=== PATIENT | male | born 1960 | race Caucasian/White ===

== ENCOUNTER 2018-08-07 09:30 | Day surgery (SDC) | payer MEDICARE ==
[2018-08-06 14:37] VITALS: BMI 38.9
[2018-08-07] MEDS ORDERED: Bupivacaine HCl 0.5%/Epinephrine 1:200,000/PF 30 ml Vial ONE (11:41)
[2018-08-07] MEDS ORDERED: Lidocaine 2% PF 5 ML VIAL ONE (11:41)
[2018-08-07] MEDS ORDERED: Fentanyl 100 MCG/2 ML VIAL ONE ×2 (11:51→13:11)
[2018-08-07] MEDS ORDERED: Albuterol Sulfate HFA (OR ONLY) ONE (12:19)
[2018-08-07] MEDS ORDERED: Non-Formulary Medication 1 EACH PO PRN (13:24)
[2018-08-07] MEDS ORDERED: Ondansetron HCl/PF 4 MG/2 ML Vial IVP PRN (13:24)
[2018-08-07] MEDS ORDERED: Ondansetron PF 4 MG/2 ML Vial IVP PRN (13:26)
[2018-08-07] MEDS ORDERED: Promethazine HCl 25 MG/ML VIAL SLOW IVP PRN (13:26)
[2018-08-07] MEDS ORDERED: HYDROcodone/Acetaminophen 5/325 mg Tablet PO PRN ×2 (13:26)
[2018-08-07] MEDS ORDERED: Fentanyl 100 MCG/2 ML VIAL SLOW IVP PRN (13:26)
[2018-08-07] MEDS ORDERED: HYDROcodone/Acetaminophen 5/325 mg Tablet ONE (14:30)
--- NOTE | 2018-08-07 15:54 | OP ---
DATE OF PROCEDURE: 08/07/2018 PREOPERATIVE DIAGNOSIS: Infected hidradenitis, scrotum, and right groin. POSTOPERATIVE DIAGNOSIS: Infected hidradenitis, scrotum, and right groin. PROCEDURE PERFORMED: Incision and drainage infected hidradenitis, right groin 2 incisions, right scrotum 2 incisions, right groin 1 incision. ANESTHESIA: General. ESTIMATED BLOOD LOSS: Minimal. COMPLICATIONS: None. FINDINGS: Cultures taken for anaerobes and aerobes. DESCRIPTION OF PROCEDURE: The patient was taken to the operating room and laid supine on the operating room table. After general anesthetic was obtained, he was placed in lithotomy position. His perineum and right groin were all shaved, prepped, and draped in a sterile fashion over the fluctuant parts of the lower perineum and right groin incisions were made into small pockets that were full of pus. The wounds were all irrigated out and packed with 0.5 inch iodoform gauze. Sterile dressings were placed. The patient sent to Recovery in stable condition. All needle counts and lap counts were correct. Job ID: [id number]
== END 2018-08-07 14:55 | disposition home or self-care (01) ==
LOC: SDC 09:30
PROVIDERS: ATTEND Surgery
PROC: 0J9C0ZZ Drainage of Pelvic Region Subcutaneous Tissue and Fascia, Open Approach (ICD-10-PCS; principal; 2018-08-07)
DX: L73.2 Hidradenitis suppurativa (principal); I10 Essential (primary) hypertension; E11.9 Type 2 diabetes mellitus without complications; E03.9 Hypothyroidism, unspecified; E78.5 Hyperlipidemia, unspecified; F17.210 Nicotine dependence, cigarettes, uncomplicated; G47.33 Obstructive sleep apnea (adult) (pediatric); J44.9 Chronic obstructive pulmonary disease, unspecified; E66.01 Morbid (severe) obesity due to excess calories; Z68.38 Body mass index [BMI] 38.0-38.9, adult; Z79.84 Long term (current) use of oral hypoglycemic drugs; Z79.899 Other long term (current) drug therapy; Z99.89 Dependence on other enabling machines and devices
CPT/HCPCS: 36416; 87070; 87077; 87205; 93005; 93010; J0670; J0690; J2001; J3010

== ENCOUNTER 2019-03-29 12:01 | Outpatient (CLI) | payer MEDICARE ==
[2019-03-29 14:47] LABS: Anion Gap 13 mmol/L (10-20); BUN (Urea Nitrogen) 19 mg/dL (8.4-25.7); Calc. Creatinine Clearance 0 mL/min (70-130); Calcium 8.8 mg/dL (7.8-10.44); Carbon Dioxide 28 mmol/L (22-29); Chloride 104 mmol/L (98-107); Estimated GFR-MDRD 77; Glucose 195 mg/dL (70-105); Sodium 140 mmol/L (136-145)
--- NOTE | 2019-04-01 00:19 | EKG ---
Test Reason : Blood Pressure : / mmHG Vent. Rate : 077 BPM Atrial Rate : 077 BPM P-R Int : 166 ms QRS Dur : 112 ms QT Int : 386 ms P-R-T Axes : 037 110 024 degrees QTc Int : 436 ms Normal sinus rhythm Left posterior fascicular block Abnormal ECG When compared with ECG of 07-AUG-2018 10:44, No significant change was found Confirmed by Phillip WOODS ([id number]) on 04/01/2019 12:18:57 AM Referred By: ERICA Confirmed By:Phillip WOODS
== END 2019-03-29 12:02 | disposition home or self-care (01) ==
LOC: LABBT 12:01
PROVIDERS: ATTEND Surgery
DX: Z01.818 Encounter for other preprocedural examination (principal); L73.2 Hidradenitis suppurativa
CPT/HCPCS: 80048; 93005; 93010

== ENCOUNTER 2019-04-01 11:49 | Day surgery (SDC) | payer MEDICARE ==
[2019-03-29 13:26] VITALS: BMI 36.6
[~2019-04-01 11:49] MED LIST: Dexamethasone 20 MG/5 ML VIAL ONE; Glycopyrrolate 0.2 MG/ML 5 ML SYRINGE ONE; Lidocaine 1% PF 5 ML VIAL ONE; Ondansetron PF 4 MG/2 ML Vial ONE; PHENYLEPHRINE-NS 100 MCG/ML 10 ML SYRINGE ONE; PROPOFOL 200 MG/20 ML VIAL ONE; Rocuronium Bromide 10 MG/ML (10ML VIAL) ONE
[2019-04-01] MEDS ORDERED: Bupivacaine 0.25% HCL 30 ML VIAL ONE (13:06)
[2019-04-01] MEDS ORDERED: Lidocaine 2% Jelly 5 ML TUBE ONE (13:07)
[2019-04-01] MEDS ORDERED: HYDROmorphone 0.5 MG/0.5 ML SYRINGE ONE (13:07)
[2019-04-01] MEDS ORDERED: Midazolam HCl 2 mg/2 ml Vial ONE (13:07)
[2019-04-01] MEDS ORDERED: Fentanyl 100 MCG/2 ML VIAL ONE ×2 (13:07→14:46)
[2019-04-01] MEDS ORDERED: Albuterol Sulfate HFA (OR ONLY) ONE (13:36)
[2019-04-01] MEDS ORDERED: Morphine 4 MG/ML VIAL ONE (14:58)
--- NOTE | 2019-04-02 10:32 | OP ---
DATE OF PROCEDURE: 04/01/2019 PREOPERATIVE DIAGNOSIS: Infected hidradenitis. POSTOPERATIVE DIAGNOSIS: Infected hidradenitis. PROCEDURE PERFORMED: Incision and drainage of infected hidradenitis, posterior scrotum and sacral area. ANESTHESIA: General. ESTIMATED BLOOD LOSS: Minimal. COMPLICATIONS: None. SPECIMEN: None. DESCRIPTION OF PROCEDURE: The patient was taken to the operating room and laid supine on the operating room table. After general anesthetic was obtained, the patient was placed in prone position. His perineum and posterior scrotum were prepped and draped in a sterile fashion. There were two more fluctuant areas. In these areas, the skin was opened to reveal purulence. Cultures were obtained. The wounds were irrigated and packed using wet-to-dry gauze. The patient was sent to Recovery in stable condition. All instrument counts, needle counts, and lap counts were correct. Job ID: [id number]
== END 2019-04-01 16:00 | disposition home or self-care (01) ==
LOC: SDC 11:49
PROVIDERS: ATTEND Surgery
PROC: 0H99XZZ Drainage of Perineum Skin, External Approach (ICD-10-PCS; principal; 2019-04-01)
DX: L73.2 Hidradenitis suppurativa (principal); L02.215 Cutaneous abscess of perineum; I10 Essential (primary) hypertension; E11.9 Type 2 diabetes mellitus without complications; I48.91 Unspecified atrial fibrillation; J44.9 Chronic obstructive pulmonary disease, unspecified; E78.5 Hyperlipidemia, unspecified; E03.9 Hypothyroidism, unspecified; G47.33 Obstructive sleep apnea (adult) (pediatric); G89.29 Other chronic pain; M54.9 Dorsalgia, unspecified; F17.200 Nicotine dependence, unspecified, uncomplicated; E66.01 Morbid (severe) obesity due to excess calories; Z68.36 Body mass index [BMI] 36.0-36.9, adult; Z79.2 Long term (current) use of antibiotics; Z79.4 Long term (current) use of insulin; Z79.82 Long term (current) use of aspirin; Z79.899 Other long term (current) drug therapy
CPT/HCPCS: 36416; 87070; 87205; J0690; J1100; J1170; J2001; J2250; J2270; J2405; J2704; J3010; S0020

== ENCOUNTER 2019-08-29 16:35 | Emergency (ER) | payer MEDICARE ==
[~2019-08-29 16:35] MED LIST changes: -Dexamethasone 20 MG/5 ML VIAL ONE; -Glycopyrrolate 0.2 MG/ML 5 ML SYRINGE ONE; +Iopamidol-370 76% 500 ML 1 ML ONE; -Lidocaine 1% PF 5 ML VIAL ONE; -Ondansetron PF 4 MG/2 ML Vial ONE; -PHENYLEPHRINE-NS 100 MCG/ML 10 ML SYRINGE ONE; -PROPOFOL 200 MG/20 ML VIAL ONE; -Rocuronium Bromide 10 MG/ML (10ML VIAL) ONE
[2019-08-29] MEDS ORDERED: HYDROcodone/Acetaminophen 10/325 mg Tablet ONE (18:28)
[2019-08-29] MEDS ORDERED: Lidocaine 1% PF 5 ML VIAL ONE (18:28)
[2019-08-29 19:35] LABS: #Basophils 0.1 thou/uL (0.0-0.2); #Eosinphils 0.3 thou/uL (0.0-0.7); #Neutrophils 9.7 thou/uL (1.40-6.50); %Basophils 0.5 % (0.0-1.0); %Eosinophils 1.9 % (0.0-10.0); %Lymphocytes 26.5 % (21.0-51.0); %Monocytes 6.9 % (0.0-10.0); %Neutrophils 64.3 % (42.0-75.0); Hemoglobin 12.3 g/dL (14.0-18.0); Mean Corpuscular HGB CONC 33.7 g/dL (32.0-36.0); Mean Corpuscular Hemoglobin 29.5 pg (27.0-31.0); Mean Corpuscular Volume 87.6 fL (78.0-98.0); Mean Platelet Volume 7.2 fL (7.4-10.4); Platelet Count 286 thou/uL (130-400); RBC Distribution Width 13.1 % (11.5-14.5); Red Blood Cell (RBC) Count 4.18 mill/uL (4.70-6.10)
[2019-08-29 19:56] LABS: ALT (SGPT) 11 U/L (8-55); AST (SGOT) 9 U/L (5-34); Albumin 3.4 g/dL (3.5-5.0); Alkaline Phosphatase 95 U/L (40-110); Anion Gap 14 mmol/L (10-20); BUN (Urea Nitrogen) 26 mg/dL (8.4-25.7); Bilirubin, Total 0.3 mg/dL (0.2-1.2); Calc. Creatinine Clearance 0 mL/min (70-130); Calcium 9.1 mg/dL (7.8-10.44); Carbon Dioxide 24 mmol/L (22-29); Chloride 100 mmol/L (98-107); Estimated GFR-MDRD 48; Globulin 4.9 g/dL (2.4-3.5); Glucose 211 mg/dL (70-105); Potassium 4.5 mmol/L (3.5-5.1); Protein, Total 8.3 g/dL (6.0-8.3); Sodium 133 mmol/L (136-145)
--- NOTE | 2019-08-29 20:11 | CT ---
EXAM: PELVIC CT WITH CONTRAST: 08/29/19 HISTORY: Large left buttock abscess x2 weeks. FINDINGS: Visualized solid organs do not demonstrate any acute abnormality. There is a small amount of nonspeci fic fluid tracking along the left pericolic gutter. Incompletely evaluated hypodensity adjacent to th e lower pole of the right kidney. Visualized alimentary canal has a normal appearance. Presacral fat is preserved. The visualized osseous structures appear to be intact. There are no erosi ve or destructive changes. No periosteal reaction. There is induration of the medial left gluteal subcutaneous fat extending down to the level of the pe rineum. There is a well circumscribed hypodense focus with incomplete peripheral enhancement measurin g 4.8 x 3.8 cm compatible with a subcutaneous/soft tissue abscess. Induration of the adjacent soft ti ssues is noted. As stated above, the adjacent distal sacrum and coccyx do not appear to have any eros yoni or destructive changes. Note, the posterior osseous margins of the coccyx do not appear to be present and may represent a con genital variant. If there is concern for extension into the central spinal canal at the level of cocc yx, MRI can be performed. Visualized left and right lower extremity musculature does not demonstrate any obvious intramuscular abscess. Mild edematous change involving the left gluteal muscles is noted. There is induration of the fat along the right inguinal region, requiring clinical correlation. IMPRESSION: 1. Soft tissue abscess involving the left gluteal subcutaneous fat as described above. There is associated induration and phlegmon involving the subcutaneous fat extending down to the level of everton neum. There is also abnormal phlegmon extending along the posterior aspect of the coccyx to the level of the expected central canal at the level of the coccyx. MRI of the pelvis maybe beneficial. 2. Induration of the fat along the right inguinal region. Correlate clinically. POS: PPP
[2019-08-29] MEDS ORDERED: Lidocaine 1% w/Epinephrine 1:100K 20 ML VIAL ONE (20:29)
[2019-08-29] MEDS ORDERED: Morphine 4 MG/ML VIAL ONE (20:43)
== END 2019-08-29 21:29 | disposition home or self-care (01) ==
LOC: ERS 16:35
DX: L02.31 Cutaneous abscess of buttock (principal); I49.9 Cardiac arrhythmia, unspecified; I48.91 Unspecified atrial fibrillation; E11.9 Type 2 diabetes mellitus without complications; E03.9 Hypothyroidism, unspecified; E78.5 Hyperlipidemia, unspecified; I10 Essential (primary) hypertension; J44.9 Chronic obstructive pulmonary disease, unspecified; F17.210 Nicotine dependence, cigarettes, uncomplicated; Z79.4 Long term (current) use of insulin; Z79.899 Other long term (current) drug therapy
CPT/HCPCS: 10061; 36415; 72193; 80053; 83605; 85025; 87070; 87205; 96374; J2001; J2270; Q9967

== ENCOUNTER 2020-06-17 11:55 | Emergency (ER) | payer MEDICARE ==
[2020-06-17] MEDS ORDERED: Iopamidol-370 76% 500 ML 1 ML ONE (12:27)
[2020-06-17 13:43] LABS: #Eosinphils 0.1 thou/uL (0.0-0.7); #Lymphocytes 2.9 thou/uL (1.20-3.40); #Monocytes 0.8 thou/uL (0.11-0.59); #Neutrophils 10.6 thou/uL (1.40-6.50); %Basophils 0.3 % (0.0-1.0); %Eosinophils 0.8 % (0.0-10.0); %Monocytes 5.7 % (0.0-10.0); %Neutrophils 73.2 % (42.0-75.0); Hemoglobin 12.6 g/dL (14.0-18.0); Mean Corpuscular Hemoglobin 28.3 pg (27.0-31.0); Mean Corpuscular Volume 85.7 fL (78.0-98.0); Mean Platelet Volume 6.9 fL (7.4-10.4); Platelet Count 315 thou/uL (130-400); Red Blood Cell (RBC) Count 4.47 mill/uL (4.70-6.10); White Blood Cell (WBC) Count 14.4 thou/uL (4.8-10.8)
[2020-06-17 14:03] LABS: ALT (SGPT) 10 U/L (8-55); AST (SGOT) 15 U/L (5-34); Albumin 3.1 g/dL (3.5-5.0); Alkaline Phosphatase 127 U/L (40-110); Anion Gap 13 mmol/L (10-20); BUN (Urea Nitrogen) 16 mg/dL (8.4-25.7); Bilirubin, Total 0.3 mg/dL (0.2-1.2); Calc. Creatinine Clearance 0 mL/min (70-130); Carbon Dioxide 30 mmol/L (22-29); Chloride 96 mmol/L (98-107); Globulin 5.3 g/dL (2.4-3.5); Glucose 335 mg/dL (70-105); Potassium 4.5 mmol/L (3.5-5.1); Protein, Total 8.4 g/dL (6.0-8.3); Sodium 134 mmol/L (136-145)
== END 2020-06-17 17:13 | disposition home or self-care (01) ==
LOC: ERS 11:55
DX: L73.2 Hidradenitis suppurativa (principal); E11.9 Type 2 diabetes mellitus without complications; I48.91 Unspecified atrial fibrillation; E03.9 Hypothyroidism, unspecified; I10 Essential (primary) hypertension; E78.5 Hyperlipidemia, unspecified; J44.9 Chronic obstructive pulmonary disease, unspecified; G47.30 Sleep apnea, unspecified; F17.210 Nicotine dependence, cigarettes, uncomplicated; Z79.84 Long term (current) use of oral hypoglycemic drugs; Z79.899 Other long term (current) drug therapy
CPT/HCPCS: 36415; 72193; 80053; 83605; 85025; 87040; Q9967

== ENCOUNTER 2020-06-22 11:11 | Day surgery (SDC) | payer MEDICARE ==
[2020-06-19 12:59] VITALS: BMI 35.9
[2020-06-22] MEDS ORDERED: Bupivacaine 0.25% HCL 30 ML VIAL ONE (13:28)
[2020-06-22] MEDS ORDERED: Lidocaine 1% w/Epinephrine 1:100K 20 ML VIAL ONE (13:28)
[2020-06-22] MEDS ORDERED: Fentanyl 100 MCG/2 ML VIAL ONE ×2 (13:37→14:51)
[2020-06-22] MEDS ORDERED: Ondansetron PF 4 MG/2 ML Vial ONE (13:53)
[2020-06-22] MEDS ORDERED: Lidocaine 1% PF 5 ML VIAL ONE (13:53)
[2020-06-22] MEDS ORDERED: PROPOFOL 200 MG/20 ML VIAL ONE (13:53)
[2020-06-22] MEDS ORDERED: PHENYLEPHRINE-NS 100 MCG/ML 10 ML SYRINGE ONE (13:53)
[2020-06-22] MEDS ORDERED: Rocuronium Bromide 10 MG/ML (10ML VIAL) ONE (13:53)
[2020-06-22] MEDS ORDERED: Dexamethasone 20 MG/5 ML VIAL ONE (13:53)
[2020-06-22] MEDS ORDERED: SUGAMMADEX SODIUM 500 MG/5 ML VIAL ONE (14:29)
== END 2020-06-22 16:30 | disposition home or self-care (01) ==
LOC: SDC 11:11
PROVIDERS: ATTEND Surgery
PROC: 0H9AXZZ Drainage of Inguinal Skin, External Approach (ICD-10-PCS; principal; 2020-06-22)
DX: L73.2 Hidradenitis suppurativa (principal); L02.215 Cutaneous abscess of perineum; G47.33 Obstructive sleep apnea (adult) (pediatric); I48.91 Unspecified atrial fibrillation; J44.9 Chronic obstructive pulmonary disease, unspecified; E11.9 Type 2 diabetes mellitus without complications; E66.01 Morbid (severe) obesity due to excess calories; I10 Essential (primary) hypertension; E78.5 Hyperlipidemia, unspecified; E03.9 Hypothyroidism, unspecified; F17.200 Nicotine dependence, unspecified, uncomplicated; Z79.899 Other long term (current) drug therapy
CPT/HCPCS: 36416; 87070; 87205; 93005; 93010; J0690; J1100; J2405; J2704; J3010; S0020

== ENCOUNTER 2020-07-15 15:52 | Inpatient (IN) | payer MEDICARE ==
[2020-07-15] MEDS ORDERED: Vancomycin 1 GM/200 ML BAG ONE (17:08)
[2020-07-15] MEDS ORDERED: Cefepime 2 GM VIAL ONE (17:08)
[2020-07-15 17:14] LABS: Hemoglobin 12.2 g/dL (14.0-18.0); Mean Corpuscular HGB CONC 32.2 g/dL (32.0-36.0); Mean Corpuscular Hemoglobin 27.8 pg (27.0-31.0); Mean Corpuscular Volume 86.4 fL (78.0-98.0); Mean Platelet Volume 6.9 fL (7.4-10.4); Platelet Count 323 thou/uL (130-400); Red Blood Cell (RBC) Count 4.37 mill/uL (4.70-6.10); White Blood Cell (WBC) Count 20.2 thou/uL (4.8-10.8)
[2020-07-15 17:29] LABS: Band 2 % (5-11); Lymphocytes 9 % (21-51); MDiff Complete? YES; Monocytes 8 % (0-10); Neutrophil 81 % (42-75); Platelet Morphology Comment Appears Adequate; Polychromasia SLIGHT = 2-3 cells (100X) (0-2/hpf)
[2020-07-15 17:41] LABS: ALT (SGPT) 14 U/L (8-55); AST (SGOT) 14 U/L (5-34); Albumin 3.1 g/dL (3.5-5.0); Alkaline Phosphatase 167 U/L (40-110); Anion Gap 12 mmol/L (10-20); BUN (Urea Nitrogen) 33 mg/dL (8.4-25.7); Bilirubin, Total 0.6 mg/dL (0.2-1.2); Calc. Creatinine Clearance 0 mL/min (70-130); Carbon Dioxide 28 mmol/L (22-29); Chloride 99 mmol/L (98-107); Globulin 5.6 g/dL (2.4-3.5); Glucose 231 mg/dL (70-105); Potassium 3.9 mmol/L (3.5-5.1); Protein, Total 8.7 g/dL (6.0-8.3); Sodium 135 mmol/L (136-145)
[2020-07-15] MEDS ORDERED: Dextrose 50% Abboject 50 ML SYRINGE SLOW IVP PRN (19:35)
[2020-07-15] MEDS ORDERED: HumaLOG 300 UNITS/3 ML VIAL SC PRN (19:35)
[2020-07-15] MEDS ORDERED: Dextrose 5% in Water 1,000 ML IV PRN (19:35)
[2020-07-15] MEDS ORDERED: Acetaminophen 325 MG TAB PO PRN (19:41)
[2020-07-15] MEDS ORDERED: Ondansetron PF 4 MG/2 ML Vial IVP PRN (19:41)
[2020-07-15] MEDS: Gabapentin 300 MG CAP PO SCH (21:33)
[2020-07-15] MEDS: Nicotine 21 MG PATCH TD SCH (21:34)
[2020-07-15] MEDS: HYDROcodone/Acetaminophen 7.5/325 mg Tablet PO PRN (21:34)
[2020-07-15] MEDS: Sodium Chloride 0.9% 1,000 ML IV SCH (21:35)
[2020-07-15 23:50] VITALS: BMI 34.0
[2020-07-16 01:02] LABS: SARS-CoV-2 NAA Rapid Test Not Detected (NotDetected)
[2020-07-16] MEDS: Vancomycin HCl 1.75 GM in Sodium Chloride 0.9% 500 ML IVPB SCH ×2 (02:35→16:09)
[2020-07-16] MEDS ORDERED: Cefepime 2 GM in Sodium Chloride 0.9% 100 ML IVPB SCH (05:00)
[2020-07-16] MEDS: HumaLOG 300 UNITS/3 ML VIAL SC PRN ×2 (05:09→16:53)
[2020-07-16 07:57] LABS: Hemoglobin A1c 10.3 % (4.0-6.0)
[2020-07-16 08:10] LABS: #Eosinphils 0.2 thou/uL (0.0-0.7); #Lymphocytes 2.2 thou/uL (1.20-3.40); #Neutrophils 14.2 thou/uL (1.40-6.50); %Basophils 0.2 % (0.0-1.0); %Eosinophils 1.2 % (0.0-10.0); %Lymphocytes 12.6 % (21.0-51.0); %Monocytes 5.6 % (0.0-10.0); %Neutrophils 80.5 % (42.0-75.0); Hemoglobin 10.6 g/dL (14.0-18.0); Mean Corpuscular HGB CONC 30.6 g/dL (32.0-36.0); Mean Corpuscular Hemoglobin 26.7 pg (27.0-31.0); Mean Corpuscular Volume 87.1 fL (78.0-98.0); Mean Platelet Volume 6.8 fL (7.4-10.4); Platelet Count 325 thou/uL (130-400); RBC Distribution Width 13.7 % (11.5-14.5); Red Blood Cell (RBC) Count 3.96 mill/uL (4.70-6.10); White Blood Cell (WBC) Count 17.7 thou/uL (4.8-10.8)
[2020-07-16] MEDS: Gabapentin 300 MG CAP PO SCH ×2 (08:15→20:22)
[2020-07-16 08:21] LABS: Anion Gap 10 mmol/L (10-20); BUN (Urea Nitrogen) 19 mg/dL (8.4-25.7); Calc. Creatinine Clearance 156 mL/min (70-130); Calcium 8.7 mg/dL (7.8-10.44); Carbon Dioxide 29 mmol/L (22-29); Cardiac Risk 3.9 (Less than 4.5); Chloride 97 mmol/L (98-107); Cholesterol 106 mg/dl (< 200 Desired); Glucose 231 mg/dL (70-105); HDL Cholesterol 27 mg/dL (>60 Neg Risk); LDL Cholesterol, Calculated 64 mg/dL; Potassium 3.9 mmol/L (3.5-5.1); Sodium 132 mmol/L (136-145); Triglycerides 76 mg/dL (Less than 150)
[2020-07-16] MEDS: Piperacillin/Tazobactam 4.5 GM in Sodium Chloride 0.9% 100 ML IVPB SCH ×3 (10:40→21:41)
[2020-07-16] MEDS: HYDROcodone/Acetaminophen 7.5/325 mg Tablet PO PRN (14:48)
[2020-07-16] MEDS: Sodium Chloride 0.9% 1,000 ML IV SCH (16:56)
[2020-07-16] MEDS: Enoxaparin Sodium 40 MG/0.4 ML SYRINGE SC SCH (20:22)
[2020-07-16] MEDS: Simvastatin 10 MG TAB PO SCH (20:24)
[2020-07-16] MEDS: Nicotine 21 MG PATCH TD SCH (21:42)
[2020-07-16] MEDS: HumuLIN 70/30 (300 UNITS/3 ML VIAL) SC SCH (21:42)
[2020-07-17] MEDS: Sodium Chloride 0.9% 1,000 ML IV SCH ×2 (00:10→12:38)
[2020-07-17] MEDS: VANCOMYCIN 1.75 GM/350 ML BAG 1.75 GM in Premix Bag 1 BAG IVPB SCH ×2 (02:13→13:40)
[2020-07-17] MEDS: Piperacillin/Tazobactam 4.5 GM in Sodium Chloride 0.9% 100 ML IVPB SCH ×4 (04:43→22:01)
[2020-07-17] MEDS: Levothyroxine Sodium 112 MCG TAB PO SCH (04:44)
[2020-07-17] MEDS: Gabapentin 300 MG CAP PO SCH ×2 (08:07→19:53)
[2020-07-17] MEDS: HumuLIN 70/30 (300 UNITS/3 ML VIAL) SC SCH ×2 (08:07→20:23)
[2020-07-17] MEDS: Metoprolol Tartrate 50 MG TAB PO SCH (08:07)
[2020-07-17 08:32] LABS: #Eosinphils 0.2 thou/uL (0.0-0.7); #Lymphocytes 2.4 thou/uL (1.20-3.40); #Neutrophils 13.3 thou/uL (1.40-6.50); %Basophils 0.3 % (0.0-1.0); %Eosinophils 1.2 % (0.0-10.0); %Lymphocytes 13.9 % (21.0-51.0); %Monocytes 5.9 % (0.0-10.0); %Neutrophils 78.8 % (42.0-75.0); Hemoglobin 9.6 g/dL (14.0-18.0); Mean Corpuscular HGB CONC 30.7 g/dL (32.0-36.0); Mean Corpuscular Volume 87.8 fL (78.0-98.0); Mean Platelet Volume 6.7 fL (7.4-10.4); Platelet Count 300 thou/uL (130-400); RBC Distribution Width 13.4 % (11.5-14.5); Red Blood Cell (RBC) Count 3.56 mill/uL (4.70-6.10); White Blood Cell (WBC) Count 16.9 thou/uL (4.8-10.8)
[2020-07-17 08:48] LABS: Anion Gap 13 mmol/L (10-20); BUN (Urea Nitrogen) 14 mg/dL (8.4-25.7); Calc. Creatinine Clearance 180 mL/min (70-130); Calcium 8.5 mg/dL (7.8-10.44); Carbon Dioxide 28 mmol/L (22-29); Chloride 98 mmol/L (98-107); Glucose 76 mg/dL (70-105); Potassium 3.7 mmol/L (3.5-5.1); Sodium 135 mmol/L (136-145)
[2020-07-17] MEDS: HYDROcodone/Acetaminophen 7.5/325 mg Tablet PO PRN ×2 (11:44→16:48)
[2020-07-17 14:04] LABS: Vancomycin, Trough 10.8 ug/mL
[2020-07-17] MEDS: Senokot S 8.6-50 MG TAB PO SCH (19:53)
[2020-07-17] MEDS: Simvastatin 10 MG TAB PO SCH (19:53)
[2020-07-17] MEDS: Enoxaparin Sodium 40 MG/0.4 ML SYRINGE SC SCH (19:54)
[2020-07-17] MEDS: Nicotine 21 MG PATCH TD SCH (22:02)
[2020-07-17] MEDS: VANCOMYCIN 1.25 GM/250 ML BAG 1.25 GM in Premix Bag 1 BAG IVPB SCH (23:13)
[2020-07-18] MEDS: Sodium Chloride 0.9% 1,000 ML IV SCH ×2 (02:55→05:51)
[2020-07-18] MEDS: Piperacillin/Tazobactam 4.5 GM in Sodium Chloride 0.9% 100 ML IVPB SCH ×3 (04:10→16:32)
[2020-07-18] MEDS: Levothyroxine Sodium 112 MCG TAB PO SCH (05:50)
[2020-07-18] MEDS: VANCOMYCIN 1.25 GM/250 ML BAG 1.25 GM in Premix Bag 1 BAG IVPB SCH ×3 (05:51→22:17)
[2020-07-18 06:45] LABS: #Eosinphils 0.3 thou/uL (0.0-0.7); #Neutrophils 11.8 thou/uL (1.40-6.50); %Basophils 0.3 % (0.0-1.0); %Eosinophils 1.8 % (0.0-10.0); %Lymphocytes 13.2 % (21.0-51.0); %Monocytes 6.6 % (0.0-10.0); %Neutrophils 78.2 % (42.0-75.0); Hemoglobin 9.1 g/dL (14.0-18.0); Mean Corpuscular HGB CONC 31.6 g/dL (32.0-36.0); Mean Corpuscular Hemoglobin 27.3 pg (27.0-31.0); Mean Corpuscular Volume 86.3 fL (78.0-98.0); Mean Platelet Volume 6.7 fL (7.4-10.4); Platelet Count 282 thou/uL (130-400); RBC Distribution Width 13.4 % (11.5-14.5); Red Blood Cell (RBC) Count 3.34 mill/uL (4.70-6.10); White Blood Cell (WBC) Count 15.1 thou/uL (4.8-10.8)
[2020-07-18 07:02] LABS: Anion Gap 11 mmol/L (10-20); BUN (Urea Nitrogen) 13 mg/dL (8.4-25.7); Calc. Creatinine Clearance 180 mL/min (70-130); Calcium 8.5 mg/dL (7.8-10.44); Carbon Dioxide 29 mmol/L (22-29); Chloride 99 mmol/L (98-107); Glucose 104 mg/dL (70-105); Potassium 3.8 mmol/L (3.5-5.1); Sodium 135 mmol/L (136-145)
[2020-07-18] MEDS: Senokot S 8.6-50 MG TAB PO SCH ×2 (09:00→20:46)
[2020-07-18] MEDS: Metoprolol Tartrate 50 MG TAB PO SCH (09:01)
[2020-07-18] MEDS: Gabapentin 300 MG CAP PO SCH ×2 (09:01→20:46)
[2020-07-18] MEDS: HumuLIN 70/30 (300 UNITS/3 ML VIAL) SC SCH ×2 (09:03→20:48)
[2020-07-18] MEDS ORDERED: Furosemide 20 MG/2 ML VIAL SLOW IVP SCH (16:45)
[2020-07-18] MEDS: HumaLOG 300 UNITS/3 ML VIAL SC PRN (17:47)
[2020-07-18] MEDS: Enoxaparin Sodium 40 MG/0.4 ML SYRINGE SC SCH (20:45)
[2020-07-18] MEDS: Simvastatin 10 MG TAB PO SCH (20:47)
[2020-07-18] MEDS: Nicotine 21 MG PATCH TD SCH (20:48)
[2020-07-18 21:56] LABS: Vancomycin, Trough 14.5 ug/mL
[2020-07-19] MEDS: Piperacillin/Tazobactam 4.5 GM in Sodium Chloride 0.9% 100 ML IVPB SCH ×3 (00:34→12:20)
[2020-07-19] MEDS: Levothyroxine Sodium 112 MCG TAB PO SCH (05:26)
[2020-07-19] MEDS: VANCOMYCIN 1.25 GM/250 ML BAG 1.25 GM in Premix Bag 1 BAG IVPB SCH ×2 (06:27→15:03)
[2020-07-19] MEDS: Senokot S 8.6-50 MG TAB PO SCH ×2 (07:57→20:21)
[2020-07-19 07:58] LABS: #Eosinphils 0.1 thou/uL (0.0-0.7); #Lymphocytes 1.8 thou/uL (1.20-3.40); #Monocytes 0.8 thou/uL (0.11-0.59); #Neutrophils 9.7 thou/uL (1.40-6.50); %Basophils 0.1 % (0.0-1.0); %Eosinophils 0.8 % (0.0-10.0); %Lymphocytes 14.2 % (21.0-51.0); %Monocytes 6.7 % (0.0-10.0); %Neutrophils 78.1 % (42.0-75.0); Hemoglobin 9.6 g/dL (14.0-18.0); Mean Corpuscular HGB CONC 32.8 g/dL (32.0-36.0); Mean Corpuscular Hemoglobin 28.4 pg (27.0-31.0); Mean Corpuscular Volume 86.5 fL (78.0-98.0); Mean Platelet Volume 6.7 fL (7.4-10.4); Platelet Count 279 thou/uL (130-400); RBC Distribution Width 13.4 % (11.5-14.5); Red Blood Cell (RBC) Count 3.37 mill/uL (4.70-6.10); White Blood Cell (WBC) Count 12.3 thou/uL (4.8-10.8)
[2020-07-19] MEDS: Gabapentin 300 MG CAP PO SCH ×2 (07:58→20:19)
[2020-07-19] MEDS: Metoprolol Tartrate 50 MG TAB PO SCH (07:58)
[2020-07-19] MEDS: HumuLIN 70/30 (300 UNITS/3 ML VIAL) SC SCH ×2 (07:59→20:20)
[2020-07-19] MEDS ORDERED: Furosemide 20 MG/2 ML VIAL SLOW IVP SCH (14:45)
[2020-07-19] MEDS ORDERED: Calcium Carbonate 500 MG ChewTAB PO PRN (15:06)
[2020-07-19] MEDS: HYDROcodone/Acetaminophen 7.5/325 mg Tablet PO PRN (16:25)
[2020-07-19] MEDS: HumaLOG 300 UNITS/3 ML VIAL SC PRN (17:33)
[2020-07-19] MEDS: Simvastatin 10 MG TAB PO SCH (20:19)
[2020-07-19] MEDS: Enoxaparin Sodium 40 MG/0.4 ML SYRINGE SC SCH (20:20)
[2020-07-19] MEDS: metroNIDAZOLE 500 MG in Premix Bag 1 BAG IVPB SCH (21:31)
[2020-07-19] MEDS: Nicotine 21 MG PATCH TD SCH (21:31)
[2020-07-19 21:50] LABS: Vancomycin, Trough 9.3 ug/mL
[2020-07-20] MEDS: metroNIDAZOLE 500 MG in Premix Bag 1 BAG IVPB SCH ×3 (05:31→20:59)
[2020-07-20] MEDS: Levothyroxine Sodium 112 MCG TAB PO SCH (05:32)
[2020-07-20 06:19] LABS: #Eosinphils 0.2 thou/uL (0.0-0.7); #Monocytes 0.8 thou/uL (0.11-0.59); #Neutrophils 7.8 thou/uL (1.40-6.50); %Basophils 0.4 % (0.0-1.0); %Lymphocytes 18.3 % (21.0-51.0); %Monocytes 7.4 % (0.0-10.0); %Neutrophils 71.9 % (42.0-75.0); Hemoglobin 9.4 g/dL (14.0-18.0); Mean Corpuscular Hemoglobin 27.4 pg (27.0-31.0); Mean Corpuscular Volume 85.5 fL (78.0-98.0); Mean Platelet Volume 6.8 fL (7.4-10.4); Platelet Count 312 thou/uL (130-400); RBC Distribution Width 13.3 % (11.5-14.5); Red Blood Cell (RBC) Count 3.42 mill/uL (4.70-6.10); White Blood Cell (WBC) Count 10.9 thou/uL (4.8-10.8)
[2020-07-20 06:42] LABS: Anion Gap 11 mmol/L (10-20); BUN (Urea Nitrogen) 7 mg/dL (8.4-25.7); Calc. Creatinine Clearance 207 mL/min (70-130); Calcium 8.7 mg/dL (7.8-10.44); Carbon Dioxide 29 mmol/L (22-29); Chloride 98 mmol/L (98-107); Glucose 160 mg/dL (70-105); Potassium 3.6 mmol/L (3.5-5.1); Sodium 134 mmol/L (136-145)
[2020-07-20] MEDS: Gabapentin 300 MG CAP PO SCH ×2 (08:02→20:54)
[2020-07-20] MEDS: Metoprolol Tartrate 50 MG TAB PO SCH (08:03)
[2020-07-20] MEDS: HumuLIN 70/30 (300 UNITS/3 ML VIAL) SC SCH ×2 (08:04→21:00)
[2020-07-20] MEDS: Senokot S 8.6-50 MG TAB PO SCH ×2 (08:04→20:55)
[2020-07-20] MEDS: HYDROcodone/Acetaminophen 7.5/325 mg Tablet PO PRN ×2 (12:25→20:54)
[2020-07-20] MEDS: HumaLOG 300 UNITS/3 ML VIAL SC PRN ×2 (13:13→18:53)
[2020-07-20] MEDS: Enoxaparin Sodium 40 MG/0.4 ML SYRINGE SC SCH (20:55)
[2020-07-20] MEDS: Simvastatin 10 MG TAB PO SCH (20:56)
[2020-07-20] MEDS: Nicotine 21 MG PATCH TD SCH (20:59)
[2020-07-21] MEDS: Metoprolol Tartrate 50 MG TAB PO SCH (05:51)
[2020-07-21] MEDS: Levothyroxine Sodium 112 MCG TAB PO SCH (05:51)
[2020-07-21] MEDS: metroNIDAZOLE 500 MG in Premix Bag 1 BAG IVPB SCH ×3 (06:00→21:21)
[2020-07-21] MEDS ORDERED: metroNIDAZOLE 500 MG/100 ML BAG ONE (06:18)
[2020-07-21] MEDS ORDERED: Fentanyl 100 MCG/2 ML VIAL ONE (06:34)
[2020-07-21] MEDS ORDERED: Promethazine HCl 25 MG/ML VIAL IM PRN (07:00)
[2020-07-21] MEDS ORDERED: Ondansetron HCl/PF 4 MG/2 ML Vial IVP PRN (07:00)
[2020-07-21] MEDS ORDERED: Promethazine HCl 25 MG/ML VIAL SLOW IVP PRN (07:00)
[2020-07-21] MEDS ORDERED: Bupivacaine 0.25% HCL 30 ML VIAL ONE (07:26)
[2020-07-21] MEDS ORDERED: Lidocaine 1% w/Epinephrine 1:100K 20 ML VIAL ONE (07:26)
[2020-07-21] MEDS ORDERED: Bupivacaine PF 0.5% 30 ML VIAL ONE (07:27)
[2020-07-21] MEDS ORDERED: Ondansetron PF 4 MG/2 ML Vial ONE (07:45)
[2020-07-21] MEDS ORDERED: Lidocaine 1% PF 5 ML VIAL ONE (07:45)
[2020-07-21] MEDS ORDERED: PROPOFOL 200 MG/20 ML VIAL ONE (07:45)
[2020-07-21] MEDS: HumuLIN 70/30 (300 UNITS/3 ML VIAL) SC SCH ×2 (08:59→21:29)
[2020-07-21] MEDS: Senokot S 8.6-50 MG TAB PO SCH ×2 (08:59→21:20)
[2020-07-21] MEDS: Gabapentin 300 MG CAP PO SCH ×2 (09:00→21:20)
[2020-07-21] MEDS: HYDROcodone/Acetaminophen 7.5/325 mg Tablet PO PRN (09:06)
[2020-07-21] MEDS: Enoxaparin Sodium 40 MG/0.4 ML SYRINGE SC SCH (21:20)
[2020-07-21] MEDS: Simvastatin 10 MG TAB PO SCH (21:21)
[2020-07-21] MEDS: Nicotine 21 MG PATCH TD SCH (21:22)
[2020-07-22] MEDS: HumaLOG 300 UNITS/3 ML VIAL SC PRN (04:56)
[2020-07-22] MEDS: metroNIDAZOLE 500 MG in Premix Bag 1 BAG IVPB SCH ×3 (05:10→21:02)
[2020-07-22] MEDS: Levothyroxine Sodium 112 MCG TAB PO SCH (05:10)
[2020-07-22 06:05] LABS: #Basophils 0.1 thou/uL (0.0-0.2); #Eosinphils 0.3 thou/uL (0.0-0.7); #Monocytes 0.8 thou/uL (0.11-0.59); #Neutrophils 8.3 thou/uL (1.40-6.50); %Basophils 0.4 % (0.0-1.0); %Eosinophils 2.6 % (0.0-10.0); %Lymphocytes 23.9 % (21.0-51.0); %Monocytes 6.5 % (0.0-10.0); %Neutrophils 66.6 % (42.0-75.0); Hemoglobin 10.2 g/dL (14.0-18.0); Mean Corpuscular HGB CONC 31.4 g/dL (32.0-36.0); Mean Corpuscular Hemoglobin 27.5 pg (27.0-31.0); Mean Corpuscular Volume 87.5 fL (78.0-98.0); Mean Platelet Volume 6.4 fL (7.4-10.4); Platelet Count 389 thou/uL (130-400); RBC Distribution Width 13.4 % (11.5-14.5); Red Blood Cell (RBC) Count 3.71 mill/uL (4.70-6.10); White Blood Cell (WBC) Count 12.5 thou/uL (4.8-10.8)
[2020-07-22 06:31] LABS: Anion Gap 11 mmol/L (10-20); BUN (Urea Nitrogen) 11 mg/dL (8.4-25.7); Calc. Creatinine Clearance 197 mL/min (70-130); Calcium 8.7 mg/dL (7.8-10.44); Carbon Dioxide 30 mmol/L (22-29); Chloride 99 mmol/L (98-107); Glucose 134 mg/dL (70-105); Potassium 3.6 mmol/L (3.5-5.1); Sodium 136 mmol/L (136-145)
[2020-07-22] MEDS: Senokot S 8.6-50 MG TAB PO SCH ×2 (08:57→20:52)
[2020-07-22] MEDS: Metoprolol Tartrate 50 MG TAB PO SCH (08:57)
[2020-07-22] MEDS: Gabapentin 300 MG CAP PO SCH ×2 (08:57→20:52)
[2020-07-22] MEDS: HumuLIN 70/30 (300 UNITS/3 ML VIAL) SC SCH ×2 (08:57→20:53)
[2020-07-22] MEDS: HYDROcodone/Acetaminophen 7.5/325 mg Tablet PO PRN (11:53)
[2020-07-22] MEDS: Enoxaparin Sodium 40 MG/0.4 ML SYRINGE SC SCH (20:51)
[2020-07-22] MEDS: Simvastatin 10 MG TAB PO SCH (20:52)
[2020-07-22] MEDS: Nicotine 21 MG PATCH TD SCH (21:03)
[2020-07-23] MEDS: Levothyroxine Sodium 112 MCG TAB PO SCH (05:30)
[2020-07-23] MEDS: metroNIDAZOLE 500 MG in Premix Bag 1 BAG IVPB SCH ×2 (05:30→14:44)
[2020-07-23 06:31] LABS: Hemoglobin 10.6 g/dL (14.0-18.0); Mean Corpuscular HGB CONC 31.8 g/dL (32.0-36.0); Mean Corpuscular Hemoglobin 28.1 pg (27.0-31.0); Mean Corpuscular Volume 88.3 fL (78.0-98.0); Mean Platelet Volume 6.4 fL (7.4-10.4); Platelet Count 396 thou/uL (130-400); RBC Distribution Width 13.5 % (11.5-14.5); Red Blood Cell (RBC) Count 3.77 mill/uL (4.70-6.10); White Blood Cell (WBC) Count 11.2 thou/uL (4.8-10.8)
[2020-07-23 07:20] VITALS: TEMP 97.7
[2020-07-23] MEDS: Senokot S 8.6-50 MG TAB PO SCH (08:28)
[2020-07-23] MEDS: Metoprolol Tartrate 50 MG TAB PO SCH (08:28)
[2020-07-23] MEDS: Gabapentin 300 MG CAP PO SCH (08:28)
[2020-07-23] MEDS: HumuLIN 70/30 (300 UNITS/3 ML VIAL) SC SCH (08:31)
[2020-07-23] MEDS: HumaLOG 300 UNITS/3 ML VIAL SC PRN (12:27)
[2020-07-23 17:12] VITALS: BP 160/88
== END 2020-07-23 17:06 | DRG 240 ==
LOC: ERS 15:52 → T4-B 19:00
PROVIDERS: ADMIT Internal Medicine; ATTEND Internal Medicine
PROC: 0JBQ0ZZ Excision of Right Foot Subcutaneous Tissue and Fascia, Open Approach (ICD-10-PCS; 2020-07-17)
PROC: 0Y6M0Z6 Detachment at Right Foot, Complete 3rd Ray, Open Approach (ICD-10-PCS; principal; 2020-07-21)
DX: E11.52 Type 2 diabetes mellitus with diabetic peripheral angiopathy with gangrene (principal); L03.115 Cellulitis of right lower limb; L02.611 Cutaneous abscess of right foot; I48.92 Unspecified atrial flutter; I96 Gangrene, not elsewhere classified; M86.171 Other acute osteomyelitis, right ankle and foot; Z16.29 Resistance to other single specified antibiotic; E11.621 Type 2 diabetes mellitus with foot ulcer; I48.91 Unspecified atrial fibrillation; Z20.822 Contact with and (suspected) exposure to COVID-19; E03.9 Hypothyroidism, unspecified; E78.5 Hyperlipidemia, unspecified; I10 Essential (primary) hypertension; J44.9 Chronic obstructive pulmonary disease, unspecified; G47.33 Obstructive sleep apnea (adult) (pediatric); L40.9 Psoriasis, unspecified; F17.210 Nicotine dependence, cigarettes, uncomplicated; E11.42 Type 2 diabetes mellitus with diabetic polyneuropathy; E11.69 Type 2 diabetes mellitus with other specified complication; L97.519 Non-pressure chronic ulcer of other part of right foot with unspecified severity; L73.2 Hidradenitis suppurativa; Z79.890 Hormone replacement therapy; Z79.4 Long term (current) use of insulin; Z79.899 Other long term (current) drug therapy; Z71.6 Tobacco abuse counseling; B96.89 Other specified bacterial agents as the cause of diseases classified elsewhere
CPT/HCPCS: 36415; 36416; 80048; 80053; 80061; 80202; 83036; 83605; 85025; 85027; 85652; 87040; 87070; 87077; 87186; 87205; 88305; 96365; 96367; J0692; J1650; J1815; J1940; J1956; J2405; J2543; J2704; J3010; J3370; J3490; J7030; S0020; U0002; U0005

== ENCOUNTER 2020-11-24 14:32 | Inpatient (IN) | payer MEDICARE ==
[2020-11-24 15:24] LABS: #Eosinphils 0.3 thou/uL (0.0-0.7); #Lymphocytes 3.1 thou/uL (1.20-3.40); #Monocytes 1.1 thou/uL (0.11-0.59); #Neutrophils 13.1 thou/uL (1.40-6.50); %Basophils 0.1 % (0.0-1.0); %Eosinophils 1.5 % (0.0-10.0); %Lymphocytes 17.6 % (21.0-51.0); %Monocytes 6.5 % (0.0-10.0); %Neutrophils 74.3 % (42.0-75.0); Hemoglobin 10.4 g/dL (14.0-18.0); Mean Corpuscular HGB CONC 32.4 g/dL (32.0-36.0); Mean Corpuscular Volume 86.5 fL (78.0-98.0); Mean Platelet Volume 6.8 fL (7.4-10.4); Platelet Count 479 thou/uL (130-400); RBC Distribution Width 12.7 % (11.5-14.5); Red Blood Cell (RBC) Count 3.72 mill/uL (4.70-6.10); White Blood Cell (WBC) Count 17.6 thou/uL (4.8-10.8)
[2020-11-24 15:45] LABS: ALT (SGPT) 8 U/L (8-55); AST (SGOT) 9 U/L (5-34); Alkaline Phosphatase 157 U/L (40-110); Anion Gap 15 mmol/L (10-20); BUN (Urea Nitrogen) 30 mg/dL (8.4-25.7); Bilirubin, Total 0.3 mg/dL (0.2-1.2); Calc. Creatinine Clearance 0 mL/min (70-130); Calcium 9.3 mg/dL (7.8-10.44); Carbon Dioxide 27 mmol/L (22-29); Chloride 96 mmol/L (98-107); Globulin 5.6 g/dL (2.4-3.5); Glucose 163 mg/dL (70-105); Potassium 4.7 mmol/L (3.5-5.1); Protein, Total 8.6 g/dL (6.0-8.3); Sodium 133 mmol/L (136-145)
[2020-11-24 19:03] LABS: SARS-CoV-2 NAA Rapid Test Not Detected (NotDetected)
[2020-11-24] MEDS ORDERED: Ondansetron PF 4 MG/2 ML Vial IVP PRN (19:45)
[2020-11-24] MEDS ORDERED: Acetaminophen 325 MG TAB PO PRN (19:45)
[2020-11-24] MEDS ORDERED: Ondansetron ODT 4 MG TAB SL PRN (19:45)
[2020-11-25] MEDS: Sodium Chloride 0.9% 1,000 ML IV SCH ×3 (00:15→21:22)
[2020-11-25] MEDS ORDERED: cefTRIAXone\\ROCEPHIN 1 GM in Sodium Chloride 0.9% 100 ML IVPB SCH (01:00)
[2020-11-25] MEDS ORDERED: Dextrose 5% in Water 1,000 ML IV PRN (01:07)
[2020-11-25 04:05] LABS: Bilirubin Negative (Negative); Blood, Urine Negative (Negative); Clarity Clear (Clear); Glucose, Urine (Dipstick) Normal (Negative); Ketone, Urine Negative (Negative); Leukocyte Negative Leu/uL (Negative); Nitrite Negative (Negative); Protein, Urine (Dipstick) 20 mg/dL (Neg-Trace); RBC/HPF 0-3 HPF (0-3); Specific Gravity, Urine 1.018 (1.002-1.036); Squamous Epithelial 0-3 HPF (0-3); Urobilinogen Normal mg/dL (Less than 2); WBC/HPF 0-3 HPF (0-3); pH, Urine 5.5 (5.0-9.0)
[2020-11-25 04:25] LABS: Bacteria/HPF None Seen HPF (None Seen)
[2020-11-25 07:18] LABS: #Eosinphils 0.2 thou/uL (0.0-0.7); #Lymphocytes 2.3 thou/uL (1.20-3.40); #Monocytes 0.7 thou/uL (0.11-0.59); %Basophils 0.2 % (0.0-1.0); %Eosinophils 1.4 % (0.0-10.0); %Lymphocytes 16.4 % (21.0-51.0); %Monocytes 5.1 % (0.0-10.0); Hemoglobin 9.8 g/dL (14.0-18.0); Mean Corpuscular HGB CONC 32.1 g/dL (32.0-36.0); Mean Corpuscular Volume 87.3 fL (78.0-98.0); Mean Platelet Volume 6.6 fL (7.4-10.4); Platelet Count 416 thou/uL (130-400); RBC Distribution Width 12.7 % (11.5-14.5); White Blood Cell (WBC) Count 14.3 thou/uL (4.8-10.8)
[2020-11-25 07:49] LABS: Anion Gap 16 mmol/L (10-20); BUN (Urea Nitrogen) 27 mg/dL (8.4-25.7); Calc. Creatinine Clearance 128 mL/min (70-130); Calcium 8.7 mg/dL (7.8-10.44); Carbon Dioxide 22 mmol/L (22-29); Chloride 100 mmol/L (98-107); Glucose 143 mg/dL (70-105); Potassium 4.6 mmol/L (3.5-5.1); Sodium 133 mmol/L (136-145)
[2020-11-25] MEDS: Metoprolol Tartrate 50 MG TAB PO SCH (08:14)
[2020-11-25 08:50] LABS: Creatinine, Urine 85.97 mg/dL (63-166)
[2020-11-25] MEDS ORDERED: Enoxaparin Sodium 30 MG/0.3 ML SYRINGE SC SCH (09:00)
[2020-11-25] MEDS: HYDROcodone/Acetaminophen 10/325 mg Tablet PO PRN (16:49)
[2020-11-25] MEDS: HumaLOG 300 UNITS/3 ML VIAL SC PRN (16:53)
[2020-11-25] MEDS: Nicotine 21 MG PATCH TD SCH (21:12)
[2020-11-25] MEDS: Amitriptyline HCl 25 MG TAB PO SCH (21:12)
[2020-11-25] MEDS: Acetaminophen 325 MG TAB PO PRN (21:12)
[2020-11-25] MEDS: Simvastatin 10 MG TAB PO SCH (21:12)
[2020-11-26] MEDS: Sodium Chloride 0.9% 1,000 ML IV SCH (06:02)
[2020-11-26] MEDS: HumaLOG 300 UNITS/3 ML VIAL SC PRN ×2 (06:09→17:35)
[2020-11-26] MEDS: Acetaminophen 325 MG TAB PO PRN ×3 (06:19→20:46)
[2020-11-26 08:02] LABS: Anion Gap 11 mmol/L (10-20); BUN (Urea Nitrogen) 13 mg/dL (8.4-25.7); Calc. Creatinine Clearance 158 mL/min (70-130); Calcium 8.5 mg/dL (7.8-10.44); Carbon Dioxide 28 mmol/L (22-29); Chloride 98 mmol/L (98-107); Glucose 176 mg/dL (70-105); Potassium 3.9 mmol/L (3.5-5.1); Sodium 133 mmol/L (136-145)
[2020-11-26] MEDS: Enoxaparin Sodium 40 MG/0.4 ML SYRINGE SC SCH (09:06)
[2020-11-26] MEDS: Metoprolol Tartrate 50 MG TAB PO SCH (09:06)
[2020-11-26] MEDS ORDERED: HYDROmorphone 0.5 MG/0.5 ML SYRINGE SLOW IVP SCH (10:30)
[2020-11-26 10:39] LABS: #Eosinphils 0.3 thou/uL (0.0-0.7); #Lymphocytes 2.4 thou/uL (1.20-3.40); #Monocytes 0.8 thou/uL (0.11-0.59); #Neutrophils 10.3 thou/uL (1.40-6.50); %Basophils 0.3 % (0.0-1.0); %Eosinophils 1.8 % (0.0-10.0); %Lymphocytes 17.2 % (21.0-51.0); %Monocytes 5.9 % (0.0-10.0); %Neutrophils 74.8 % (42.0-75.0); Hemoglobin 9.4 g/dL (14.0-18.0); Mean Corpuscular HGB CONC 32.9 g/dL (32.0-36.0); Mean Corpuscular Hemoglobin 28.7 pg (27.0-31.0); Mean Corpuscular Volume 87.1 fL (78.0-98.0); Mean Platelet Volume 6.4 fL (7.4-10.4); Platelet Count 388 thou/uL (130-400); RBC Distribution Width 12.5 % (11.5-14.5); Red Blood Cell (RBC) Count 3.27 mill/uL (4.70-6.10); White Blood Cell (WBC) Count 13.8 thou/uL (4.8-10.8)
[2020-11-26] MEDS: Gabapentin 100 MG CAP PO SCH ×2 (14:55→20:46)
[2020-11-26] MEDS: HYDROcodone/Acetaminophen 10/325 mg Tablet PO PRN (16:26)
[2020-11-26] MEDS ORDERED: Albuterol Sulfate 2.5 mg/0.5 ml Neb NEB PRN (17:26)
[2020-11-26 17:33] LABS: Hemoglobin A1c 7.3 % (4.0-6.0)
[2020-11-26] MEDS: Simvastatin 10 MG TAB PO SCH (20:46)
[2020-11-26] MEDS: Amitriptyline HCl 25 MG TAB PO SCH (20:46)
[2020-11-26] MEDS: NPH, Human Insulin Isophane 300 UNIT/3 ML VIAL SC SCH (20:47)
[2020-11-26] MEDS: Nicotine 21 MG PATCH TD SCH (23:06)
[2020-11-27] MEDS: Levothyroxine Sodium 112 MCG TAB PO SCH (05:34)
[2020-11-27] MEDS: Gabapentin 100 MG CAP PO SCH ×3 (08:16→21:00)
[2020-11-27] MEDS: Enoxaparin Sodium 40 MG/0.4 ML SYRINGE SC SCH (08:17)
[2020-11-27] MEDS: NPH, Human Insulin Isophane 300 UNIT/3 ML VIAL SC SCH ×2 (08:17→20:58)
[2020-11-27] MEDS: Metoprolol Tartrate 50 MG TAB PO SCH (08:17)
[2020-11-27 08:25] LABS: Anion Gap 12 mmol/L (10-20); BUN (Urea Nitrogen) 7 mg/dL (8.4-25.7); Calc. Creatinine Clearance 181 mL/min (70-130); Calcium 8.6 mg/dL (7.8-10.44); Carbon Dioxide 29 mmol/L (22-29); Chloride 98 mmol/L (98-107); Glucose 106 mg/dL (70-105); Sodium 135 mmol/L (136-145)
[2020-11-27 10:09] LABS: #Eosinphils 0.3 thou/uL (0.0-0.7); #Lymphocytes 1.9 thou/uL (1.20-3.40); #Monocytes 0.8 thou/uL (0.11-0.59); #Neutrophils 10.8 thou/uL (1.40-6.50); %Basophils 0.3 % (0.0-1.0); %Eosinophils 2.3 % (0.0-10.0); %Lymphocytes 13.4 % (21.0-51.0); Hemoglobin 9.5 g/dL (14.0-18.0); Mean Corpuscular HGB CONC 33.3 g/dL (32.0-36.0); Mean Corpuscular Hemoglobin 29.2 pg (27.0-31.0); Mean Corpuscular Volume 87.6 fL (78.0-98.0); Mean Platelet Volume 6.9 fL (7.4-10.4); Platelet Count 362 thou/uL (130-400); RBC Distribution Width 12.6 % (11.5-14.5); Red Blood Cell (RBC) Count 3.26 mill/uL (4.70-6.10); White Blood Cell (WBC) Count 13.9 thou/uL (4.8-10.8)
[2020-11-27] MEDS: HYDROcodone/Acetaminophen 10/325 mg Tablet PO PRN (13:39)
[2020-11-27] MEDS: Nicotine 21 MG PATCH TD SCH (21:00)
[2020-11-27] MEDS: Amitriptyline HCl 25 MG TAB PO SCH (21:00)
[2020-11-27] MEDS: Simvastatin 10 MG TAB PO SCH (21:26)
[2020-11-28] MEDS: Dextrose 50% Abboject 50 ML SYRINGE SLOW IVP PRN (04:52)
[2020-11-28] MEDS: Levothyroxine Sodium 112 MCG TAB PO SCH (04:55)
[2020-11-28] MEDS: Metoprolol Tartrate 50 MG TAB PO SCH (07:48)
[2020-11-28] MEDS: Gabapentin 100 MG CAP PO SCH ×3 (07:48→20:43)
[2020-11-28] MEDS: Enoxaparin Sodium 40 MG/0.4 ML SYRINGE SC SCH (07:50)
[2020-11-28] MEDS: NPH, Human Insulin Isophane 300 UNIT/3 ML VIAL SC SCH ×2 (07:58→20:41)
[2020-11-28] MEDS: HYDROcodone/Acetaminophen 10/325 mg Tablet PO PRN (08:20)
[2020-11-28 08:59] LABS: #Eosinphils 0.3 thou/uL (0.0-0.7); #Lymphocytes 2.8 thou/uL (1.20-3.40); #Monocytes 0.9 thou/uL (0.11-0.59); #Neutrophils 11.9 thou/uL (1.40-6.50); %Basophils 0.2 % (0.0-1.0); %Lymphocytes 17.5 % (21.0-51.0); %Monocytes 5.7 % (0.0-10.0); %Neutrophils 74.7 % (42.0-75.0); Hemoglobin 9.9 g/dL (14.0-18.0); Mean Corpuscular HGB CONC 31.6 g/dL (32.0-36.0); Mean Corpuscular Hemoglobin 27.5 pg (27.0-31.0); Mean Corpuscular Volume 87.1 fL (78.0-98.0); Mean Platelet Volume 6.6 fL (7.4-10.4); Platelet Count 407 thou/uL (130-400); RBC Distribution Width 12.6 % (11.5-14.5); Red Blood Cell (RBC) Count 3.58 mill/uL (4.70-6.10); White Blood Cell (WBC) Count 15.9 thou/uL (4.8-10.8)
[2020-11-28 09:19] LABS: Anion Gap 13 mmol/L (10-20); BUN (Urea Nitrogen) 15 mg/dL (8.4-25.7); Calc. Creatinine Clearance 162 mL/min (70-130); Carbon Dioxide 28 mmol/L (22-29); Chloride 97 mmol/L (98-107); Glucose 69 mg/dL (70-105); Potassium 3.9 mmol/L (3.5-5.1); Sodium 134 mmol/L (136-145)
[2020-11-28] MEDS: HYDROcodone/Acetaminophen 5/325 mg Tablet PO PRN (12:28)
[2020-11-28] MEDS: Nicotine 21 MG PATCH TD SCH (20:43)
[2020-11-28] MEDS: Amitriptyline HCl 25 MG TAB PO SCH (20:43)
[2020-11-28] MEDS: Simvastatin 10 MG TAB PO SCH (21:25)
[2020-11-29] MEDS: Levothyroxine Sodium 112 MCG TAB PO SCH (06:14)
[2020-11-29 06:45] LABS: #Eosinphils 0.2 thou/uL (0.0-0.7); #Lymphocytes 2.8 thou/uL (1.20-3.40); %Basophils 0.1 % (0.0-1.0); %Eosinophils 1.5 % (0.0-10.0); %Lymphocytes 18.8 % (21.0-51.0); %Monocytes 6.9 % (0.0-10.0); %Neutrophils 72.8 % (42.0-75.0); Hemoglobin 8.6 g/dL (14.0-18.0); Mean Corpuscular HGB CONC 32.4 g/dL (32.0-36.0); Mean Corpuscular Hemoglobin 28.2 pg (27.0-31.0); Mean Platelet Volume 6.2 fL (7.4-10.4); Platelet Count 347 thou/uL (130-400); RBC Distribution Width 12.5 % (11.5-14.5); Red Blood Cell (RBC) Count 3.03 mill/uL (4.70-6.10); White Blood Cell (WBC) Count 15.1 thou/uL (4.8-10.8)
[2020-11-29 07:04] LABS: Anion Gap 11 mmol/L (10-20); BUN (Urea Nitrogen) 26 mg/dL (8.4-25.7); Calc. Creatinine Clearance 149 mL/min (70-130); Calcium 7.9 mg/dL (7.8-10.44); Carbon Dioxide 28 mmol/L (22-29); Chloride 98 mmol/L (98-107); Glucose 129 mg/dL (70-105); Potassium 3.9 mmol/L (3.5-5.1); Sodium 133 mmol/L (136-145)
[2020-11-29] MEDS: Metoprolol Tartrate 50 MG TAB PO SCH (08:27)
[2020-11-29] MEDS: Gabapentin 100 MG CAP PO SCH ×3 (08:27→21:29)
[2020-11-29] MEDS: Enoxaparin Sodium 40 MG/0.4 ML SYRINGE SC SCH (08:29)
[2020-11-29] MEDS: NPH, Human Insulin Isophane 300 UNIT/3 ML VIAL SC SCH ×2 (08:29→21:36)
[2020-11-29] MEDS: HYDROcodone/Acetaminophen 5/325 mg Tablet PO PRN ×2 (12:04→17:46)
[2020-11-29] MEDS ORDERED: Polyethylene Glycol 3350 17 GM Packet PO SCH (14:00)
[2020-11-29] MEDS: Amitriptyline HCl 25 MG TAB PO SCH (21:29)
[2020-11-29] MEDS: methylPREDNISolone Sod Succ 40 MG VIAL IVP SCH (21:29)
[2020-11-29] MEDS: Nicotine 21 MG PATCH TD SCH (21:30)
[2020-11-29] MEDS: Simvastatin 10 MG TAB PO SCH (21:30)
[2020-11-29] MEDS: HumaLOG 300 UNITS/3 ML VIAL SC PRN (21:34)
[2020-11-29 23:07] LABS: HSV 1 - DNA Negative (Negative); HSV 2 - DNA Negative (Negative)
[2020-11-30] MEDS: HumaLOG 300 UNITS/3 ML VIAL SC PRN ×3 (05:05→15:55)
[2020-11-30] MEDS: Levothyroxine Sodium 112 MCG TAB PO SCH (05:05)
[2020-11-30] MEDS: HYDROcodone/Acetaminophen 5/325 mg Tablet PO PRN ×2 (07:15→19:50)
[2020-11-30 07:48] LABS: Anion Gap 13 mmol/L (10-20); BUN (Urea Nitrogen) 39 mg/dL (8.4-25.7); Calc. Creatinine Clearance 128 mL/min (70-130); Calcium 8.6 mg/dL (7.8-10.44); Carbon Dioxide 27 mmol/L (22-29); Chloride 97 mmol/L (98-107); Glucose 247 mg/dL (70-105); Potassium 4.6 mmol/L (3.5-5.1); Sodium 132 mmol/L (136-145)
[2020-11-30] MEDS: methylPREDNISolone Sod Succ 40 MG VIAL IVP SCH ×2 (09:42→20:43)
[2020-11-30] MEDS: Polyethylene Glycol 3350 17 GM Packet PO SCH (09:42)
[2020-11-30] MEDS: Enoxaparin Sodium 40 MG/0.4 ML SYRINGE SC SCH (09:42)
[2020-11-30] MEDS: Metoprolol Tartrate 50 MG TAB PO SCH (09:43)
[2020-11-30] MEDS: Gabapentin 100 MG CAP PO SCH ×3 (09:43→20:43)
[2020-11-30] MEDS: NPH, Human Insulin Isophane 300 UNIT/3 ML VIAL SC SCH ×2 (09:44→20:50)
[2020-11-30] MEDS ORDERED: Nystatin Powder 15 GM BOT TOP PRN (15:41)
[2020-11-30] MEDS: Amitriptyline HCl 25 MG TAB PO SCH (20:43)
[2020-11-30] MEDS: Simvastatin 10 MG TAB PO SCH (20:43)
[2020-11-30] MEDS: metFORMIN 500 MG TAB PO SCH (20:43)
[2020-11-30] MEDS: Nicotine 21 MG PATCH TD SCH (21:19)
[2020-12-01] MEDS: HumaLOG 300 UNITS/3 ML VIAL SC PRN ×5 (00:09→20:36)
[2020-12-01] MEDS: Levothyroxine Sodium 112 MCG TAB PO SCH (05:13)
[2020-12-01 08:31] LABS: #Lymphocytes 1.4 thou/uL (1.20-3.40); #Monocytes 0.7 thou/uL (0.11-0.59); #Neutrophils 12.2 thou/uL (1.40-6.50); %Eosinophils 0.1 % (0.0-10.0); %Lymphocytes 9.9 % (21.0-51.0); %Monocytes 4.8 % (0.0-10.0); %Neutrophils 85.2 % (42.0-75.0); Hemoglobin 9.1 g/dL (14.0-18.0); Mean Corpuscular HGB CONC 33.4 g/dL (32.0-36.0); Mean Corpuscular Hemoglobin 28.6 pg (27.0-31.0); Mean Corpuscular Volume 85.7 fL (78.0-98.0); Mean Platelet Volume 6.5 fL (7.4-10.4); Platelet Count 405 thou/uL (130-400); RBC Distribution Width 12.4 % (11.5-14.5); White Blood Cell (WBC) Count 14.4 thou/uL (4.8-10.8)
[2020-12-01] MEDS: metFORMIN 500 MG TAB PO SCH ×2 (08:52→20:33)
[2020-12-01] MEDS: Metoprolol Tartrate 50 MG TAB PO SCH (08:52)
[2020-12-01] MEDS: Gabapentin 100 MG CAP PO SCH ×3 (08:52→20:31)
[2020-12-01] MEDS: HYDROcodone/Acetaminophen 5/325 mg Tablet PO PRN ×3 (08:53→20:34)
[2020-12-01] MEDS: Enoxaparin Sodium 40 MG/0.4 ML SYRINGE SC SCH (08:54)
[2020-12-01 08:55] LABS: ALT (SGPT) 13 U/L (8-55); AST (SGOT) 10 U/L (5-34); Albumin 2.2 g/dL (3.5-5.0); Alkaline Phosphatase 189 U/L (40-110); Anion Gap 11 mmol/L (10-20); BUN (Urea Nitrogen) 66 mg/dL (8.4-25.7); Bilirubin, Total 0.2 mg/dL (0.2-1.2); Calc. Creatinine Clearance 106 mL/min (70-130); Calcium 8.4 mg/dL (7.8-10.44); Carbon Dioxide 28 mmol/L (22-29); Chloride 96 mmol/L (98-107); Globulin 4.4 g/dL (2.4-3.5); Glucose 217 mg/dL (70-105); Potassium 4.8 mmol/L (3.5-5.1); Protein, Total 6.6 g/dL (6.0-8.3); Sodium 130 mmol/L (136-145)
[2020-12-01] MEDS: NPH, Human Insulin Isophane 300 UNIT/3 ML VIAL SC SCH ×2 (08:55→20:35)
[2020-12-01] MEDS: methylPREDNISolone Sod Succ 40 MG VIAL IVP SCH ×2 (08:56→20:31)
[2020-12-01] MEDS: Polyethylene Glycol 3350 17 GM Packet PO SCH (09:01)
[2020-12-01] MEDS ORDERED: Bisacodyl 10 MG SUPP PR PRN (16:41)
[2020-12-01] MEDS: Sodium Chloride 0.9% 1,000 ML IV SCH (16:58)
[2020-12-01] MEDS: Milk Of Magnesia 30 ML UDCUP PO PRN (16:59)
[2020-12-01] MEDS: Amitriptyline HCl 25 MG TAB PO SCH (20:33)
[2020-12-01] MEDS: Simvastatin 10 MG TAB PO SCH (20:33)
[2020-12-01] MEDS: Senokot S 8.6-50 MG TAB PO SCH (20:36)
[2020-12-01] MEDS: Nicotine 21 MG PATCH TD SCH (22:47)
[2020-12-02] MEDS: HYDROcodone/Acetaminophen 5/325 mg Tablet PO PRN ×4 (02:52→22:01)
[2020-12-02] MEDS: HumaLOG 300 UNITS/3 ML VIAL SC PRN ×3 (05:18→21:49)
[2020-12-02] MEDS: Levothyroxine Sodium 112 MCG TAB PO SCH (05:21)
[2020-12-02] MEDS: Sodium Chloride 0.9% 1,000 ML IV SCH (05:24)
[2020-12-02] MEDS: Senokot S 8.6-50 MG TAB PO SCH ×2 (08:33→21:46)
[2020-12-02] MEDS: Gabapentin 100 MG CAP PO SCH ×3 (08:33→21:44)
[2020-12-02] MEDS: Metoprolol Tartrate 50 MG TAB PO SCH (08:34)
[2020-12-02] MEDS: metFORMIN 500 MG TAB PO SCH ×2 (08:34→21:44)
[2020-12-02] MEDS: methylPREDNISolone Sod Succ 40 MG VIAL IVP SCH ×2 (08:35→21:44)
[2020-12-02] MEDS: Polyethylene Glycol 3350 17 GM Packet PO SCH (08:35)
[2020-12-02] MEDS: Enoxaparin Sodium 40 MG/0.4 ML SYRINGE SC SCH (08:42)
[2020-12-02 10:32] LABS: #Monocytes 0.6 thou/uL (0.11-0.59); #Neutrophils 12.3 thou/uL (1.40-6.50); %Basophils 0.1 % (0.0-1.0); %Eosinophils 0.2 % (0.0-10.0); %Lymphocytes 13.2 % (21.0-51.0); %Monocytes 4.2 % (0.0-10.0); %Neutrophils 82.4 % (42.0-75.0); Hemoglobin 9.2 g/dL (14.0-18.0); Mean Corpuscular HGB CONC 33.8 g/dL (32.0-36.0); Mean Corpuscular Hemoglobin 29.5 pg (27.0-31.0); Mean Corpuscular Volume 87.2 fL (78.0-98.0); Mean Platelet Volume 6.6 fL (7.4-10.4); Platelet Count 380 thou/uL (130-400); RBC Distribution Width 12.5 % (11.5-14.5); White Blood Cell (WBC) Count 14.9 thou/uL (4.8-10.8)
[2020-12-02] MEDS: NPH, Human Insulin Isophane 300 UNIT/3 ML VIAL SC SCH ×2 (10:40→21:50)
[2020-12-02 10:58] LABS: Anion Gap 10 mmol/L (10-20); BUN (Urea Nitrogen) 88 mg/dL (8.4-25.7); Calc. Creatinine Clearance 101 mL/min (70-130); Carbon Dioxide 28 mmol/L (22-29); Chloride 97 mmol/L (98-107); Glucose 196 mg/dL (70-105); Potassium 5.1 mmol/L (3.5-5.1); Sodium 130 mmol/L (136-145)
[2020-12-02 12:12] LABS: SARS-CoV-2 PCR by NAA Not Detected (NotDetected)
[2020-12-02] MEDS ORDERED: Bisacodyl 10 MG SUPP PR SCH (12:49)
[2020-12-02] MEDS: Milk Of Magnesia 30 ML UDCUP PO PRN (19:32)
[2020-12-02] MEDS: Amitriptyline HCl 25 MG TAB PO SCH (21:44)
[2020-12-02] MEDS: Simvastatin 10 MG TAB PO SCH (21:47)
[2020-12-02] MEDS: Nicotine 21 MG PATCH TD SCH (22:19)
[2020-12-03] MEDS: HYDROcodone/Acetaminophen 5/325 mg Tablet PO PRN ×4 (05:34→20:40)
[2020-12-03] MEDS: Levothyroxine Sodium 112 MCG TAB PO SCH (05:42)
[2020-12-03 07:05] LABS: #Basophils 0.1 thou/uL (0.0-0.2); #Lymphocytes 1.5 thou/uL (1.20-3.40); #Monocytes 0.6 thou/uL (0.11-0.59); %Basophils 0.5 % (0.0-1.0); %Eosinophils 0.2 % (0.0-10.0); %Lymphocytes 11.1 % (21.0-51.0); %Monocytes 4.3 % (0.0-10.0); %Neutrophils 83.9 % (42.0-75.0); Hemoglobin 9.6 g/dL (14.0-18.0); Mean Corpuscular HGB CONC 33.5 g/dL (32.0-36.0); Mean Corpuscular Hemoglobin 28.7 pg (27.0-31.0); Mean Corpuscular Volume 85.7 fL (78.0-98.0); Mean Platelet Volume 6.4 fL (7.4-10.4); Platelet Count 402 thou/uL (130-400); RBC Distribution Width 12.4 % (11.5-14.5); Red Blood Cell (RBC) Count 3.33 mill/uL (4.70-6.10); White Blood Cell (WBC) Count 13.1 thou/uL (4.8-10.8)
[2020-12-03 07:26] LABS: Anion Gap 11 mmol/L (10-20); BUN (Urea Nitrogen) 94 mg/dL (8.4-25.7); Calc. Creatinine Clearance 105 mL/min (70-130); Calcium 8.2 mg/dL (7.8-10.44); Carbon Dioxide 29 mmol/L (22-29); Chloride 98 mmol/L (98-107); Glucose 122 mg/dL (70-105); Potassium 5.1 mmol/L (3.5-5.1); Sodium 133 mmol/L (136-145)
[2020-12-03] MEDS: Enoxaparin Sodium 40 MG/0.4 ML SYRINGE SC SCH (08:44)
[2020-12-03] MEDS: metFORMIN 500 MG TAB PO SCH ×2 (08:45→20:39)
[2020-12-03] MEDS: Metoprolol Tartrate 50 MG TAB PO SCH (08:45)
[2020-12-03] MEDS: Gabapentin 100 MG CAP PO SCH ×3 (08:46→20:39)
[2020-12-03] MEDS: Polyethylene Glycol 3350 17 GM Packet PO SCH (08:46)
[2020-12-03] MEDS: Senokot S 8.6-50 MG TAB PO SCH ×2 (08:46→20:39)
[2020-12-03] MEDS: Acetaminophen 325 MG TAB PO PRN (08:48)
[2020-12-03] MEDS: methylPREDNISolone Sod Succ 40 MG VIAL IVP SCH (08:53)
[2020-12-03] MEDS: NPH, Human Insulin Isophane 300 UNIT/3 ML VIAL SC SCH ×2 (08:53→21:32)
[2020-12-03] MEDS ORDERED: GoLYTELY 4,000 ml Bottle PO SCH (14:15)
[2020-12-03] MEDS: Dextrose 5 %-0.45 % NaCl 1,000 ML IV SCH (17:28)
[2020-12-03] MEDS: Amitriptyline HCl 25 MG TAB PO SCH (20:39)
[2020-12-03] MEDS: Simvastatin 10 MG TAB PO SCH (20:44)
[2020-12-03] MEDS: Nicotine 21 MG PATCH TD SCH (23:07)
[2020-12-04] MEDS: HYDROcodone/Acetaminophen 5/325 mg Tablet PO PRN ×4 (01:26→20:27)
[2020-12-04] MEDS: Levothyroxine Sodium 112 MCG TAB PO SCH (05:35)
[2020-12-04] MEDS: Dextrose 5 %-0.45 % NaCl 1,000 ML IV SCH (05:58)
[2020-12-04 06:54] LABS: Anion Gap 12 mmol/L (10-20); BUN (Urea Nitrogen) 99 mg/dL (8.4-25.7); Calc. Creatinine Clearance 85 mL/min (70-130); Calcium 7.9 mg/dL (7.8-10.44); Carbon Dioxide 21 mmol/L (22-29); Chloride 103 mmol/L (98-107); Glucose 77 mg/dL (70-105); Potassium 5.3 mmol/L (3.5-5.1); Sodium 131 mmol/L (136-145)
[2020-12-04 07:26] LABS: Hemoglobin 9.4 g/dL (14.0-18.0); Mean Corpuscular HGB CONC 33.3 g/dL (32.0-36.0); Mean Corpuscular Hemoglobin 28.5 pg (27.0-31.0); Mean Corpuscular Volume 85.6 fL (78.0-98.0); Mean Platelet Volume 6.4 fL (7.4-10.4); Platelet Count 381 thou/uL (130-400); RBC Distribution Width 12.8 % (11.5-14.5); Red Blood Cell (RBC) Count 3.28 mill/uL (4.70-6.10); White Blood Cell (WBC) Count 22.1 thou/uL (4.8-10.8)
[2020-12-04 08:06] LABS: Band 4 % (5-11); Lymphocytes 19 % (21-51); MDiff Complete? YES; Monocytes 2 % (0-10); Myelocyte 1 % (0-0); Neutrophil 73 % (42-75); Platelet Morphology Comment Appears Adequate; Polychromasia SLIGHT = 2-3 cells (100X) (0-2/hpf); Reactive Lymphocytes 1 % (0-10)
[2020-12-04] MEDS: Enoxaparin Sodium 40 MG/0.4 ML SYRINGE SC SCH (08:25)
[2020-12-04] MEDS: Metoprolol Tartrate 50 MG TAB PO SCH (08:26)
[2020-12-04] MEDS: Gabapentin 100 MG CAP PO SCH ×3 (08:27→20:22)
[2020-12-04] MEDS: metFORMIN 500 MG TAB PO SCH (08:27)
[2020-12-04] MEDS: Polyethylene Glycol 3350 17 GM Packet PO SCH (08:28)
[2020-12-04] MEDS: NPH, Human Insulin Isophane 300 UNIT/3 ML VIAL SC SCH ×2 (08:28→21:05)
[2020-12-04] MEDS: Senokot S 8.6-50 MG TAB PO SCH ×2 (08:28→20:22)
[2020-12-04] MEDS: predniSONE 20 MG TAB PO SCH (08:28)
[2020-12-04] MEDS: Sodium Bicarbonate Tab 325 MG TAB PO SCH ×2 (14:45→20:22)
[2020-12-04] MEDS: Albumin 25% 25 GM/100 ML BOT IVPB SCH ×2 (14:46→22:30)
[2020-12-04] MEDS: HumaLOG 300 UNITS/3 ML VIAL SC PRN ×2 (16:08→21:06)
[2020-12-04 19:48] LABS: Bilirubin Negative (Negative); Blood, Urine 2+ (Negative); Clarity Turbid (Clear); Glucose, Urine (Dipstick) 50 mg/dL (Negative); Ketone, Urine Negative (Negative); Leukocyte 25 Leu/uL (Negative); Nitrite Negative (Negative); Protein, Urine (Dipstick) 300 mg/dL (Neg-Trace); RBC/HPF 21-50 HPF (0-3); Specific Gravity, Urine 1.021 (1.002-1.036); Squamous Epithelial 0-3 HPF (0-3); pH, Urine 5.5 (5.0-9.0)
[2020-12-04 19:49] LABS: Bacteria/HPF 1+ HPF (None Seen)
[2020-12-04 20:03] LABS: Creatinine, Urine 103.75 mg/dL (63-166)
[2020-12-04] MEDS: Amitriptyline HCl 25 MG TAB PO SCH (20:22)
[2020-12-04] MEDS: Simvastatin 10 MG TAB PO SCH (20:23)
[2020-12-04] MEDS: Nicotine 21 MG PATCH TD SCH (22:30)
[2020-12-05] MEDS: Levothyroxine Sodium 112 MCG TAB PO SCH (05:39)
[2020-12-05] MEDS: Albumin 25% 25 GM/100 ML BOT IVPB SCH ×2 (06:01→14:35)
[2020-12-05] MEDS: HumaLOG 300 UNITS/3 ML VIAL SC PRN ×4 (06:06→20:07)
[2020-12-05 07:16] LABS: #Basophils 0.2 thou/uL (0.0-0.2); #Eosinphils 0.1 thou/uL (0.0-0.7); #Lymphocytes 1.8 thou/uL (1.20-3.40); #Monocytes 0.6 thou/uL (0.11-0.59); #Neutrophils 15.1 thou/uL (1.40-6.50); %Eosinophils 0.4 % (0.0-10.0); %Lymphocytes 10.3 % (21.0-51.0); %Monocytes 3.5 % (0.0-10.0); %Neutrophils 84.9 % (42.0-75.0); Mean Corpuscular HGB CONC 32.4 g/dL (32.0-36.0); Mean Corpuscular Hemoglobin 28.6 pg (27.0-31.0); Mean Corpuscular Volume 88.3 fL (78.0-98.0); Mean Platelet Volume 6.9 fL (7.4-10.4); Platelet Count 359 thou/uL (130-400); Red Blood Cell (RBC) Count 3.13 mill/uL (4.70-6.10); White Blood Cell (WBC) Count 17.8 thou/uL (4.8-10.8)
[2020-12-05 07:39] LABS: Albumin 2.8 g/dL (3.5-5.0); Anion Gap 11 mmol/L (10-20); BUN (Urea Nitrogen) 110 mg/dL (8.4-25.7); BUN/Creatinine Ratio 75.86; Calc. Creatinine Clearance 76 mL/min (70-130); Calcium 8.5 mg/dL (7.8-10.44); Carbon Dioxide 27 mmol/L (22-29); Chloride 99 mmol/L (98-107); Glucose 239 mg/dL (70-105); Phosphorus 3.8 mg/dL (2.3-4.7); Potassium 4.8 mmol/L (3.5-5.1); Sodium 132 mmol/L (136-145)
[2020-12-05] MEDS: Polyethylene Glycol 3350 17 GM Packet PO SCH (08:40)
[2020-12-05] MEDS: HYDROcodone/Acetaminophen 5/325 mg Tablet PO PRN ×3 (08:40→18:24)
[2020-12-05] MEDS: Senokot S 8.6-50 MG TAB PO SCH ×2 (08:41→20:04)
[2020-12-05] MEDS: Sodium Bicarbonate Tab 325 MG TAB PO SCH ×3 (08:41→20:04)
[2020-12-05] MEDS: Gabapentin 100 MG CAP PO SCH ×3 (08:41→20:04)
[2020-12-05] MEDS: Metoprolol Tartrate 50 MG TAB PO SCH ×2 (08:42→20:05)
[2020-12-05] MEDS: predniSONE 20 MG TAB PO SCH (08:42)
[2020-12-05] MEDS: Enoxaparin Sodium 40 MG/0.4 ML SYRINGE SC SCH (08:43)
[2020-12-05] MEDS: NPH, Human Insulin Isophane 300 UNIT/3 ML VIAL SC SCH ×2 (08:43→20:07)
[2020-12-05] MEDS ORDERED: Sodium Chloride 0.9% 1,000 ML IV SCH (09:30)
[2020-12-05] MEDS ORDERED: Amlodipine 5 MG TAB PO SCH ×2 (09:30→19:00)
[2020-12-05] MEDS ORDERED: Albumin 25% 100 ML ONE (14:30)
[2020-12-05] MEDS: Amitriptyline HCl 25 MG TAB PO SCH (20:05)
[2020-12-05 20:09] LABS: Anion Gap 13 mmol/L (10-20); BUN (Urea Nitrogen) 105 mg/dL (8.4-25.7); Calc. Creatinine Clearance 90 mL/min (70-130); Calcium 8.1 mg/dL (7.8-10.44); Carbon Dioxide 24 mmol/L (22-29); Chloride 101 mmol/L (98-107); Glucose 338 mg/dL (70-105); Potassium 5.7 mmol/L (3.5-5.1); Sodium 132 mmol/L (136-145)
[2020-12-05] MEDS: Simvastatin 10 MG TAB PO SCH (20:10)
[2020-12-05] MEDS: Nicotine 21 MG PATCH TD SCH (21:55)
[2020-12-06] MEDS: HumaLOG 300 UNITS/3 ML VIAL SC PRN ×3 (05:30→21:49)
[2020-12-06] MEDS: Levothyroxine Sodium 112 MCG TAB PO SCH (05:30)
[2020-12-06] MEDS: Polyethylene Glycol 3350 17 GM Packet PO SCH (08:32)
[2020-12-06] MEDS: Metoprolol Tartrate 50 MG TAB PO SCH ×2 (08:32→21:52)
[2020-12-06] MEDS: Enoxaparin Sodium 40 MG/0.4 ML SYRINGE SC SCH (08:32)
[2020-12-06] MEDS: predniSONE 20 MG TAB PO SCH (08:33)
[2020-12-06] MEDS: Amlodipine 10 MG TAB PO SCH (08:34)
[2020-12-06] MEDS: Gabapentin 100 MG CAP PO SCH ×3 (08:34→21:52)
[2020-12-06] MEDS: Senokot S 8.6-50 MG TAB PO SCH ×2 (08:34→21:52)
[2020-12-06] MEDS: Sodium Bicarbonate Tab 325 MG TAB PO SCH (08:34)
[2020-12-06] MEDS: NPH, Human Insulin Isophane 300 UNIT/3 ML VIAL SC SCH ×2 (08:36→22:22)
[2020-12-06 08:49] LABS: Albumin 2.7 g/dL (3.5-5.0); Anion Gap 8 mmol/L (10-20); BUN (Urea Nitrogen) 100 mg/dL (8.4-25.7); Calc. Creatinine Clearance 110 mL/min (70-130); Calcium 8.4 mg/dL (7.8-10.44); Carbon Dioxide 30 mmol/L (22-29); Chloride 102 mmol/L (98-107); Glucose 111 mg/dL (70-105); Phosphorus 3.9 mg/dL (2.3-4.7); Potassium 4.8 mmol/L (3.5-5.1); Sodium 135 mmol/L (136-145)
[2020-12-06] MEDS: HYDROcodone/Acetaminophen 5/325 mg Tablet PO PRN ×2 (08:49→12:59)
[2020-12-06 13:37] LABS: 24 Hr Creatinine 675.6 mg/24 hr (950-2490); Creatinine, Urine 45.04 mg/dL (63-166)
[2020-12-06] MEDS: Albumin 25% 25 GM/100 ML BOT IVPB SCH ×2 (14:22→22:22)
[2020-12-06] MEDS ORDERED: Carvedilol 3.125 MG TAB PO SCH (17:00)
[2020-12-06] MEDS: Simvastatin 10 MG TAB PO SCH (21:52)
[2020-12-06] MEDS: Amitriptyline HCl 25 MG TAB PO SCH (21:52)
[2020-12-06] MEDS: Nicotine 21 MG PATCH TD SCH (22:22)
[2020-12-07] MEDS: Levothyroxine Sodium 112 MCG TAB PO SCH (06:13)
[2020-12-07] MEDS: Albumin 25% 25 GM/100 ML BOT IVPB SCH ×3 (06:13→21:28)
[2020-12-07] MEDS: HumaLOG 300 UNITS/3 ML VIAL SC PRN ×3 (06:13→16:31)
[2020-12-07 07:35] LABS: Albumin 2.8 g/dL (3.5-5.0); Anion Gap 10 mmol/L (10-20); BUN (Urea Nitrogen) 119 mg/dL (8.4-25.7); BUN/Creatinine Ratio 91.54; Calc. Creatinine Clearance 85 mL/min (70-130); Calcium 8.4 mg/dL (7.8-10.44); Carbon Dioxide 28 mmol/L (22-29); Chloride 103 mmol/L (98-107); Glucose 200 mg/dL (70-105); Phosphorus 4.6 mg/dL (2.3-4.7); Potassium 4.4 mmol/L (3.5-5.1); Sodium 137 mmol/L (136-145)
[2020-12-07 07:44] LABS: Complement-C4 19.7 mg/dL (15-53)
[2020-12-07] MEDS: Enoxaparin Sodium 40 MG/0.4 ML SYRINGE SC SCH (07:59)
[2020-12-07] MEDS: Gabapentin 100 MG CAP PO SCH ×3 (08:00→21:27)
[2020-12-07] MEDS: Senokot S 8.6-50 MG TAB PO SCH ×2 (08:00→21:28)
[2020-12-07] MEDS: Metoprolol Tartrate 50 MG TAB PO SCH ×2 (08:00→21:27)
[2020-12-07] MEDS: Polyethylene Glycol 3350 17 GM Packet PO SCH (08:00)
[2020-12-07] MEDS: Amlodipine 10 MG TAB PO SCH (08:01)
[2020-12-07] MEDS: NPH, Human Insulin Isophane 300 UNIT/3 ML VIAL SC SCH ×2 (08:01→21:30)
[2020-12-07] MEDS: predniSONE 20 MG TAB PO SCH (08:01)
[2020-12-07] MEDS: Sodium Chloride 0.9% 1,000 ML IV SCH ×2 (09:21→17:29)
[2020-12-07] MEDS: HYDROcodone/Acetaminophen 5/325 mg Tablet PO PRN ×3 (09:31→21:49)
[2020-12-07] MEDS: Amitriptyline HCl 25 MG TAB PO SCH (21:27)
[2020-12-07] MEDS: Nicotine 21 MG PATCH TD SCH (21:28)
[2020-12-07] MEDS: Simvastatin 10 MG TAB PO SCH (21:29)
[2020-12-08] MEDS: Albumin 25% 25 GM/100 ML BOT IVPB SCH ×4 (05:31→21:06)
[2020-12-08] MEDS: Levothyroxine Sodium 112 MCG TAB PO SCH (05:31)
[2020-12-08] MEDS: Sodium Chloride 0.9% 1,000 ML IV SCH ×2 (05:31→16:02)
[2020-12-08] MEDS: HumaLOG 300 UNITS/3 ML VIAL SC PRN ×2 (05:32→22:33)
[2020-12-08] MEDS: HYDROcodone/Acetaminophen 5/325 mg Tablet PO PRN ×2 (06:23→12:22)
[2020-12-08 08:32] LABS: ALT (SGPT) 27 U/L (8-55); AST (SGOT) 20 U/L (5-34); Albumin 3.4 g/dL (3.5-5.0); Alkaline Phosphatase 125 U/L (40-110); Anion Gap 13 mmol/L (10-20); BUN (Urea Nitrogen) 125 mg/dL (8.4-25.7); Bilirubin, Total 0.3 mg/dL (0.2-1.2); Calc. Creatinine Clearance 78 mL/min (70-130); Calcium 8.5 mg/dL (7.8-10.44); Carbon Dioxide 26 mmol/L (22-29); Chloride 105 mmol/L (98-107); Globulin 2.7 g/dL (2.4-3.5); Glucose 154 mg/dL (70-105); Potassium 4.7 mmol/L (3.5-5.1); Protein, Total 6.1 g/dL (6.0-8.3); Sodium 139 mmol/L (136-145)
[2020-12-08] MEDS: Senokot S 8.6-50 MG TAB PO SCH ×2 (09:07→21:04)
[2020-12-08] MEDS: Metoprolol Tartrate 50 MG TAB PO SCH ×2 (09:08→21:04)
[2020-12-08] MEDS: Gabapentin 100 MG CAP PO SCH ×3 (09:08→21:04)
[2020-12-08] MEDS: Enoxaparin Sodium 40 MG/0.4 ML SYRINGE SC SCH (09:10)
[2020-12-08] MEDS: predniSONE 20 MG TAB PO SCH (09:13)
[2020-12-08] MEDS: Amlodipine 10 MG TAB PO SCH (09:13)
[2020-12-08] MEDS: Polyethylene Glycol 3350 17 GM Packet PO SCH (09:16)
[2020-12-08] MEDS: NPH, Human Insulin Isophane 300 UNIT/3 ML VIAL SC SCH ×2 (09:38→21:06)
[2020-12-08 10:45] LABS: INR-International Normal Ratio 1.2; PTT 30.9 sec (22.9-36.1); Prothrombin Time 15.1 sec (12.0-14.7)
[2020-12-08] MEDS: Amitriptyline HCl 25 MG TAB PO SCH (21:03)
[2020-12-08] MEDS: Simvastatin 10 MG TAB PO SCH (21:04)
[2020-12-08] MEDS ORDERED: VANCOMYCIN 2 GRAM/400 ML BAG 2 GM in Premix Bag 1 BAG IVPB SCH (22:30)
[2020-12-08] MEDS ORDERED: Cefepime 2 GM in Sodium Chloride 0.9% 100 ML IVPB SCH (22:30)
[2020-12-08] MEDS: Nicotine 21 MG PATCH TD SCH (23:03)
[2020-12-09] MEDS: Sodium Chloride 0.9% 1,000 ML IV SCH (00:13)
[2020-12-09 05:59] LABS: SARS-CoV-2 NAA Rapid Test Not Detected (NotDetected)
[2020-12-09 06:53] LABS: #Eosinphils 0.1 thou/uL (0.0-0.7); #Lymphocytes 2.7 thou/uL (1.20-3.40); #Monocytes 1.2 thou/uL (0.11-0.59); #Neutrophils 11.9 thou/uL (1.40-6.50); %Basophils 0.2 % (0.0-1.0); %Eosinophils 0.8 % (0.0-10.0); %Monocytes 7.8 % (0.0-10.0); %Neutrophils 74.3 % (42.0-75.0); Hemoglobin 7.7 g/dL (14.0-18.0); Mean Corpuscular HGB CONC 32.4 g/dL (32.0-36.0); Mean Corpuscular Hemoglobin 28.6 pg (27.0-31.0); Mean Corpuscular Volume 88.4 fL (78.0-98.0); Mean Platelet Volume 7.4 fL (7.4-10.4); Platelet Count 306 thou/uL (130-400); RBC Distribution Width 13.9 % (11.5-14.5); Red Blood Cell (RBC) Count 2.68 mill/uL (4.70-6.10)
[2020-12-09 07:00] LABS: ALT (SGPT) 31 U/L (8-55); AST (SGOT) 16 U/L (5-34); Albumin 3.1 g/dL (3.5-5.0); Alkaline Phosphatase 113 U/L (40-110); Anion Gap 14 mmol/L (10-20); Bilirubin, Total 0.3 mg/dL (0.2-1.2); Calc. Creatinine Clearance 72 mL/min (70-130); Calcium 8.1 mg/dL (7.8-10.44); Carbon Dioxide 24 mmol/L (22-29); Chloride 107 mmol/L (98-107); Globulin 2.7 g/dL (2.4-3.5); Glucose 153 mg/dL (70-105); Potassium 4.7 mmol/L (3.5-5.1); Protein, Total 5.8 g/dL (6.0-8.3); Sodium 140 mmol/L (136-145)
[2020-12-09] MEDS: HumaLOG 300 UNITS/3 ML VIAL SC PRN (07:08)
[2020-12-09] MEDS: Levothyroxine Sodium 112 MCG TAB PO SCH (07:09)
[2020-12-09 07:11] LABS: BUN (Urea Nitrogen) 125 mg/dL (8.4-25.7)
[2020-12-09] MEDS: HYDROcodone/Acetaminophen 5/325 mg Tablet PO PRN ×3 (08:47→19:02)
[2020-12-09] MEDS: Senokot S 8.6-50 MG TAB PO SCH ×2 (08:48→20:29)
[2020-12-09] MEDS: Gabapentin 100 MG CAP PO SCH ×3 (08:49→20:28)
[2020-12-09] MEDS: predniSONE 20 MG TAB PO SCH (08:49)
[2020-12-09] MEDS: Metoprolol Tartrate 50 MG TAB PO SCH ×2 (08:50→20:29)
[2020-12-09] MEDS: Amlodipine 10 MG TAB PO SCH (08:51)
[2020-12-09] MEDS: Polyethylene Glycol 3350 17 GM Packet PO SCH (08:51)
[2020-12-09] MEDS: Enoxaparin Sodium 40 MG/0.4 ML SYRINGE SC SCH (08:52)
[2020-12-09] MEDS ORDERED: Cefepime 2 GM in Sodium Chloride 0.9% 100 ML IVPB SCH (09:00)
[2020-12-09] MEDS ORDERED: Furosemide 20 MG/2 ML VIAL SLOW IVP SCH (09:15)
[2020-12-09] MEDS: NPH, Human Insulin Isophane 300 UNIT/3 ML VIAL SC SCH ×2 (10:10→20:29)
[2020-12-09] MEDS: Vancomycin 1.5 GRAM/300 ML BAG 1.5 GM in Premix Bag 1 BAG IVPB SCH ×2 (12:12→23:34)
[2020-12-09] MEDS: Amitriptyline HCl 25 MG TAB PO SCH (20:29)
[2020-12-09] MEDS: Simvastatin 10 MG TAB PO SCH (20:31)
[2020-12-09] MEDS: Nicotine 21 MG PATCH TD SCH (23:35)
[2020-12-09 23:40] LABS: SARS-CoV-2 PCR by NAA Not Detected (NotDetected)
[2020-12-10] MEDS: Levothyroxine Sodium 112 MCG TAB PO SCH (05:07)
[2020-12-10] MEDS: HYDROcodone/Acetaminophen 5/325 mg Tablet PO PRN ×4 (05:14→21:02)
[2020-12-10 06:31] LABS: #Eosinphils 0.3 thou/uL (0.0-0.7); #Lymphocytes 2.7 thou/uL (1.20-3.40); #Monocytes 1.2 thou/uL (0.11-0.59); #Neutrophils 13.1 thou/uL (1.40-6.50); %Eosinophils 1.7 % (0.0-10.0); %Lymphocytes 15.5 % (21.0-51.0); %Monocytes 6.6 % (0.0-10.0); %Neutrophils 76.1 % (42.0-75.0); Hemoglobin 8.2 g/dL (14.0-18.0); Mean Corpuscular HGB CONC 31.7 g/dL (32.0-36.0); Mean Corpuscular Hemoglobin 28.4 pg (27.0-31.0); Mean Corpuscular Volume 89.8 fL (78.0-98.0); Mean Platelet Volume 7.6 fL (7.4-10.4); Platelet Count 385 thou/uL (130-400); RBC Distribution Width 14.4 % (11.5-14.5); Red Blood Cell (RBC) Count 2.89 mill/uL (4.70-6.10); White Blood Cell (WBC) Count 17.3 thou/uL (4.8-10.8)
[2020-12-10 06:49] LABS: Anion Gap 17 mmol/L (10-20); Calc. Creatinine Clearance 54 mL/min (70-130); Calcium 8.2 mg/dL (7.8-10.44); Carbon Dioxide 22 mmol/L (22-29); Chloride 105 mmol/L (98-107); Glucose 278 mg/dL (70-105); Potassium 4.7 mmol/L (3.5-5.1); Sodium 139 mmol/L (136-145)
[2020-12-10 07:11] LABS: BUN (Urea Nitrogen) 116 mg/dL (8.4-25.7)
[2020-12-10] MEDS: Metoprolol Tartrate 50 MG TAB PO SCH ×2 (08:59→21:01)
[2020-12-10] MEDS: Gabapentin 100 MG CAP PO SCH ×3 (09:01→21:00)
[2020-12-10] MEDS: predniSONE 20 MG TAB PO SCH (09:02)
[2020-12-10] MEDS: Amlodipine 10 MG TAB PO SCH (09:02)
[2020-12-10] MEDS: Polyethylene Glycol 3350 17 GM Packet PO SCH (09:03)
[2020-12-10] MEDS: Enoxaparin Sodium 40 MG/0.4 ML SYRINGE SC SCH (09:03)
[2020-12-10] MEDS: Senokot S 8.6-50 MG TAB PO SCH ×2 (09:03→21:00)
[2020-12-10] MEDS: NPH, Human Insulin Isophane 300 UNIT/3 ML VIAL SC SCH ×2 (09:05→21:00)
[2020-12-10 10:47] LABS: Vancomycin, Trough 34.6 ug/mL
[2020-12-10] MEDS: Vancomycin 1.5 GRAM/300 ML BAG 1.5 GM in Premix Bag 1 BAG IVPB SCH (11:20)
[2020-12-10] MEDS ORDERED: Vancomycin 1.5 GRAM/300 ML BAG 1.5 GM in Premix Bag 1 BAG IVPB SCH (11:45)
[2020-12-10 11:47] LABS: ANA Symphony (Qualitative) Negative (Negative); ANA Symphony (Quantitative) 0.4 Ratio (< 0.7 Negative)
[2020-12-10] MEDS: HumaLOG 300 UNITS/3 ML VIAL SC PRN ×2 (18:33→21:11)
[2020-12-10] MEDS: Amitriptyline HCl 25 MG TAB PO SCH (21:02)
[2020-12-10] MEDS: Simvastatin 10 MG TAB PO SCH (21:04)
[2020-12-10 22:46] LABS: Vancomycin, Random 25.3 ug/mL (See Comment)
[2020-12-10] MEDS: Nicotine 21 MG PATCH TD SCH (23:32)
[2020-12-11 01:16] LABS: Troponin I 0.019 ng/mL (< 0.028)
[2020-12-11 01:17] LABS: Anion Gap 17 mmol/L (10-20); Calc. Creatinine Clearance 53 mL/min (70-130); Calcium 8.2 mg/dL (7.8-10.44); Carbon Dioxide 20 mmol/L (22-29); Chloride 106 mmol/L (98-107); Glucose 312 mg/dL (70-105); Magnesium 1.7 mg/dL (1.6-2.6); Sodium 138 mmol/L (136-145)
[2020-12-11 01:30] LABS: BUN (Urea Nitrogen) 126 mg/dL (8.4-25.7)
[2020-12-11] MEDS ORDERED: Magnesium 2 GM/50 ML 2 GM in Premix Bag 1 BAG IVPB SCH (02:00)
[2020-12-11] MEDS: HYDROcodone/Acetaminophen 5/325 mg Tablet PO PRN ×3 (02:21→14:08)
[2020-12-11] MEDS: Levothyroxine Sodium 112 MCG TAB PO SCH (05:32)
[2020-12-11 05:47] LABS: #Basophils 0.1 thou/uL (0.0-0.2); #Eosinphils 0.1 thou/uL (0.0-0.7); #Lymphocytes 3.4 thou/uL (1.20-3.40); #Monocytes 1.1 thou/uL (0.11-0.59); #Neutrophils 10.9 thou/uL (1.40-6.50); %Basophils 0.3 % (0.0-1.0); %Eosinophils 0.6 % (0.0-10.0); %Lymphocytes 21.7 % (21.0-51.0); %Monocytes 7.4 % (0.0-10.0); Hemoglobin 7.5 g/dL (14.0-18.0); Mean Corpuscular HGB CONC 32.7 g/dL (32.0-36.0); Mean Corpuscular Hemoglobin 29.1 pg (27.0-31.0); Mean Corpuscular Volume 89.1 fL (78.0-98.0); Mean Platelet Volume 7.5 fL (7.4-10.4); Platelet Count 326 thou/uL (130-400); RBC Distribution Width 14.7 % (11.5-14.5); Red Blood Cell (RBC) Count 2.57 mill/uL (4.70-6.10); White Blood Cell (WBC) Count 15.5 thou/uL (4.8-10.8)
[2020-12-11 05:59] LABS: ALT (SGPT) 23 U/L (8-55); AST (SGOT) 6 U/L (5-34); Albumin 2.7 g/dL (3.5-5.0); Alkaline Phosphatase 109 U/L (40-110); Anion Gap 16 mmol/L (10-20); Bilirubin, Total 0.2 mg/dL (0.2-1.2); Calc. Creatinine Clearance 53 mL/min (70-130); Calcium 8.2 mg/dL (7.8-10.44); Carbon Dioxide 22 mmol/L (22-29); Chloride 108 mmol/L (98-107); Glucose 176 mg/dL (70-105); Iron 54 ug/dL (65-175); Iron Binding Capacity, Total 175 mcg/dL (261-462); Potassium 4.9 mmol/L (3.5-5.1); Protein, Total 5.7 g/dL (6.0-8.3); Sodium 141 mmol/L (136-145)
[2020-12-11 06:14] LABS: BUN (Urea Nitrogen) 131 mg/dL (8.4-25.7)
[2020-12-11] MEDS: predniSONE 20 MG TAB PO SCH (08:43)
[2020-12-11] MEDS ORDERED: Fentanyl 100 MCG/2 ML VIAL ONE (08:43)
[2020-12-11] MEDS: Amlodipine 10 MG TAB PO SCH (08:44)
[2020-12-11] MEDS: Enoxaparin Sodium 40 MG/0.4 ML SYRINGE SC SCH (08:44)
[2020-12-11] MEDS ORDERED: Midazolam HCl 2 mg/2 ml Vial ONE (08:44)
[2020-12-11] MEDS ORDERED: Sodium Bicarbonate 2.5 MEQ/5 ML VIAL ONE (08:44)
[2020-12-11] MEDS ORDERED: Sodium Chloride 0.9% 10 ML ONE (08:44)
[2020-12-11] MEDS: Gabapentin 100 MG CAP PO SCH ×3 (08:45→23:03)
[2020-12-11] MEDS: Metoprolol Tartrate 50 MG TAB PO SCH ×2 (08:45→23:03)
[2020-12-11] MEDS: Senokot S 8.6-50 MG TAB PO SCH ×2 (08:47→23:03)
[2020-12-11] MEDS: Polyethylene Glycol 3350 17 GM Packet PO SCH (08:47)
[2020-12-11] MEDS: NPH, Human Insulin Isophane 300 UNIT/3 ML VIAL SC SCH ×2 (12:57→23:02)
[2020-12-11] MEDS: methylPREDNISolone Sod Succ/PF 500 MG in Sodium Chloride 0.9% 250 ML 250 ML IVPB SCH (14:13)
[2020-12-11] MEDS ORDERED: Furosemide 40 MG/4 ML VIAL SLOW IVP SCH (14:45)
[2020-12-11] MEDS: Amitriptyline HCl 25 MG TAB PO SCH (23:02)
[2020-12-11] MEDS: HumaLOG 300 UNITS/3 ML VIAL SC PRN (23:02)
[2020-12-11] MEDS: Nicotine 21 MG PATCH TD SCH (23:03)
[2020-12-11] MEDS: Simvastatin 10 MG TAB PO SCH (23:03)
[2020-12-12] MEDS: Levothyroxine Sodium 112 MCG TAB PO SCH (05:30)
[2020-12-12 05:40] LABS: #Basophils 0.1 thou/uL (0.0-0.2); #Lymphocytes 1.1 thou/uL (1.20-3.40); #Monocytes 0.2 thou/uL (0.11-0.59); #Neutrophils 6.8 thou/uL (1.40-6.50); %Basophils 0.7 % (0.0-1.0); %Eosinophils 0.5 % (0.0-10.0); %Monocytes 2.1 % (0.0-10.0); %Neutrophils 83.7 % (42.0-75.0); Hemoglobin 8.9 g/dL (14.0-18.0); Mean Corpuscular HGB CONC 33.1 g/dL (32.0-36.0); Mean Corpuscular Hemoglobin 29.7 pg (27.0-31.0); Mean Corpuscular Volume 89.7 fL (78.0-98.0); Mean Platelet Volume 7.8 fL (7.4-10.4); Platelet Count 337 thou/uL (130-400); RBC Distribution Width 15.2 % (11.5-14.5); Red Blood Cell (RBC) Count 3.01 mill/uL (4.70-6.10); White Blood Cell (WBC) Count 8.1 thou/uL (4.8-10.8)
[2020-12-12 06:17] LABS: ALT (SGPT) 26 U/L (8-55); AST (SGOT) 8 U/L (5-34); Albumin 3.1 g/dL (3.5-5.0); Alkaline Phosphatase 112 U/L (40-110); Anion Gap 16 mmol/L (10-20); Bilirubin, Total 0.3 mg/dL (0.2-1.2); Calc. Creatinine Clearance 50 mL/min (70-130); Calcium 8.7 mg/dL (7.8-10.44); Carbon Dioxide 21 mmol/L (22-29); Chloride 106 mmol/L (98-107); Globulin 3.5 g/dL (2.4-3.5); Glucose 244 mg/dL (70-105); Potassium 5.5 mmol/L (3.5-5.1); Protein, Total 6.6 g/dL (6.0-8.3); Sodium 137 mmol/L (136-145)
[2020-12-12 06:28] LABS: BUN (Urea Nitrogen) 128 mg/dL (8.4-25.7)
[2020-12-12] MEDS: Gabapentin 100 MG CAP PO SCH ×3 (08:22→20:29)
[2020-12-12] MEDS: Amlodipine 10 MG TAB PO SCH (08:22)
[2020-12-12] MEDS: predniSONE 20 MG TAB PO SCH (08:22)
[2020-12-12] MEDS: Polyethylene Glycol 3350 17 GM Packet PO SCH (08:22)
[2020-12-12] MEDS: Enoxaparin Sodium 40 MG/0.4 ML SYRINGE SC SCH (08:23)
[2020-12-12] MEDS: Metoprolol Tartrate 50 MG TAB PO SCH ×2 (08:23→20:29)
[2020-12-12] MEDS: Senokot S 8.6-50 MG TAB PO SCH ×2 (08:24→20:31)
[2020-12-12] MEDS: NPH, Human Insulin Isophane 300 UNIT/3 ML VIAL SC SCH ×2 (08:33→20:24)
[2020-12-12] MEDS: HYDROcodone/Acetaminophen 5/325 mg Tablet PO PRN ×3 (09:38→21:42)
[2020-12-12] MEDS ORDERED: Albuterol Sulfate 2.5 mg/3 ml Neb NEB SCH (09:45)
[2020-12-12] MEDS: HumaLOG 300 UNITS/3 ML VIAL SC PRN ×3 (12:19→20:28)
[2020-12-12] MEDS: methylPREDNISolone Sod Succ/PF 500 MG in Sodium Chloride 0.9% 250 ML 250 ML IVPB SCH (14:17)
[2020-12-12 16:14] LABS: Potassium 4.2 mmol/L (3.5-5.1)
[2020-12-12 16:20] LABS: Anion Gap 18 mmol/L (10-20); Calc. Creatinine Clearance 57 mL/min (70-130); Calcium 8.5 mg/dL (7.8-10.44); Carbon Dioxide 20 mmol/L (22-29); Chloride 106 mmol/L (98-107); Glucose 278 mg/dL (70-105); Potassium 4.4 mmol/L (3.5-5.1); Sodium 140 mmol/L (136-145)
[2020-12-12 16:28] LABS: Reference Lab Name LABCORP
[2020-12-12 16:29] LABS: Ref Lab Test Ordered ANTI HISTONE AB
[2020-12-12 16:31] LABS: BUN (Urea Nitrogen) 134 mg/dL (8.4-25.7)
[2020-12-12] MEDS ORDERED: Metoprolol Tartrate 5 MG/5 ML VIAL ONE (18:35)
[2020-12-12] MEDS ORDERED: Metoprolol Tartrate 5 MG/5 ML VIAL IVP SCH (19:15)
[2020-12-12] MEDS: Amitriptyline HCl 25 MG TAB PO SCH (20:30)
[2020-12-12] MEDS: Simvastatin 10 MG TAB PO SCH (20:31)
[2020-12-12] MEDS: Nicotine 21 MG PATCH TD SCH (22:08)
[2020-12-13 05:20] LABS: Hemoglobin 7.6 g/dL (14.0-18.0); Mean Corpuscular Hemoglobin 29.6 pg (27.0-31.0); Mean Corpuscular Volume 89.9 fL (78.0-98.0); Mean Platelet Volume 7.8 fL (7.4-10.4); Platelet Count 288 thou/uL (130-400); RBC Distribution Width 15.4 % (11.5-14.5); Red Blood Cell (RBC) Count 2.57 mill/uL (4.70-6.10); White Blood Cell (WBC) Count 7.1 thou/uL (4.8-10.8)
[2020-12-13 05:39] LABS: ALT (SGPT) 31 U/L (8-55); AST (SGOT) 11 U/L (5-34); Albumin 2.8 g/dL (3.5-5.0); Alkaline Phosphatase 115 U/L (40-110); Anion Gap 14 mmol/L (10-20); Bilirubin, Total 0.2 mg/dL (0.2-1.2); Calc. Creatinine Clearance 62 mL/min (70-130); Calcium 8.2 mg/dL (7.8-10.44); Carbon Dioxide 25 mmol/L (22-29); Chloride 106 mmol/L (98-107); Glucose 319 mg/dL (70-105); Potassium 4.5 mmol/L (3.5-5.1); Protein, Total 5.8 g/dL (6.0-8.3); Sodium 140 mmol/L (136-145)
[2020-12-13 05:50] LABS: BUN (Urea Nitrogen) 124 mg/dL (8.4-25.7)
[2020-12-13] MEDS: HumaLOG 300 UNITS/3 ML VIAL SC PRN ×4 (05:50→20:32)
[2020-12-13] MEDS: Levothyroxine Sodium 112 MCG TAB PO SCH (05:50)
[2020-12-13] MEDS ORDERED: Lorazepam 0.5 MG TAB PO PRN (08:26)
[2020-12-13] MEDS: HYDROcodone/Acetaminophen 5/325 mg Tablet PO PRN ×4 (08:29→22:36)
[2020-12-13] MEDS: predniSONE 20 MG TAB PO SCH (08:31)
[2020-12-13] MEDS: Senokot S 8.6-50 MG TAB PO SCH ×2 (08:32→21:08)
[2020-12-13] MEDS: Gabapentin 100 MG CAP PO SCH ×3 (08:32→21:07)
[2020-12-13] MEDS: Amlodipine 10 MG TAB PO SCH (08:32)
[2020-12-13] MEDS: Metoprolol Tartrate 50 MG TAB PO SCH ×2 (08:33→21:07)
[2020-12-13] MEDS: Enoxaparin Sodium 40 MG/0.4 ML SYRINGE SC SCH (08:34)
[2020-12-13] MEDS: Polyethylene Glycol 3350 17 GM Packet PO SCH (08:48)
[2020-12-13] MEDS: NPH, Human Insulin Isophane 300 UNIT/3 ML VIAL SC SCH ×2 (09:46→20:31)
[2020-12-13] MEDS: methylPREDNISolone Sod Succ/PF 500 MG in Sodium Chloride 0.9% 250 ML 250 ML IVPB SCH (15:50)
[2020-12-13] MEDS: Amitriptyline HCl 25 MG TAB PO SCH (21:07)
[2020-12-13] MEDS: Simvastatin 10 MG TAB PO SCH (21:08)
[2020-12-13] MEDS: Nicotine 21 MG PATCH TD SCH (22:36)
[2020-12-14] MEDS: HYDROcodone/Acetaminophen 5/325 mg Tablet PO PRN ×4 (04:42→17:41)
[2020-12-14] MEDS: Levothyroxine Sodium 112 MCG TAB PO SCH (05:15)
[2020-12-14 06:03] LABS: #Lymphocytes 0.3 thou/uL (1.20-3.40); #Monocytes 0.2 thou/uL (0.11-0.59); #Neutrophils 7.8 thou/uL (1.40-6.50); %Eosinophils 0.2 % (0.0-10.0); %Lymphocytes 3.8 % (21.0-51.0); %Monocytes 2.1 % (0.0-10.0); %Neutrophils 93.9 % (42.0-75.0); Hemoglobin 8.6 g/dL (14.0-18.0); Mean Corpuscular HGB CONC 32.3 g/dL (32.0-36.0); Mean Corpuscular Hemoglobin 29.2 pg (27.0-31.0); Mean Corpuscular Volume 90.4 fL (78.0-98.0); Mean Platelet Volume 7.9 fL (7.4-10.4); Platelet Count 335 thou/uL (130-400); RBC Distribution Width 15.5 % (11.5-14.5); Red Blood Cell (RBC) Count 2.96 mill/uL (4.70-6.10); White Blood Cell (WBC) Count 8.3 thou/uL (4.8-10.8)
[2020-12-14 06:19] LABS: ALT (SGPT) 32 U/L (8-55); AST (SGOT) 10 U/L (5-34); Alkaline Phosphatase 132 U/L (40-110); Anion Gap 14 mmol/L (10-20); Bilirubin, Total 0.3 mg/dL (0.2-1.2); Calc. Creatinine Clearance 67 mL/min (70-130); Calcium 8.2 mg/dL (7.8-10.44); Carbon Dioxide 25 mmol/L (22-29); Chloride 106 mmol/L (98-107); Globulin 3.2 g/dL (2.4-3.5); Glucose 365 mg/dL (70-105); Potassium 4.6 mmol/L (3.5-5.1); Protein, Total 6.2 g/dL (6.0-8.3); Sodium 140 mmol/L (136-145)
[2020-12-14] MEDS: HumaLOG 300 UNITS/3 ML VIAL SC PRN ×3 (06:28→17:43)
[2020-12-14 06:31] LABS: BUN (Urea Nitrogen) 135 mg/dL (8.4-25.7)
[2020-12-14 06:50] LABS: Thyroid Stimulating Hormone 0.5949 uIU/mL (0.35-4.94)
[2020-12-14] MEDS ORDERED: hydrALAZINE 25 MG TAB PO SCH ×2 (09:00→15:00)
[2020-12-14] MEDS: Metoprolol Tartrate 50 MG TAB PO SCH ×2 (09:25→21:33)
[2020-12-14] MEDS: Senokot S 8.6-50 MG TAB PO SCH ×2 (09:26→21:34)
[2020-12-14] MEDS: Enoxaparin Sodium 40 MG/0.4 ML SYRINGE SC SCH (09:27)
[2020-12-14] MEDS: Gabapentin 100 MG CAP PO SCH ×3 (09:28→21:33)
[2020-12-14] MEDS: Polyethylene Glycol 3350 17 GM Packet PO SCH (09:28)
[2020-12-14] MEDS ORDERED: NPH, Human Insulin Isophane 300 UNIT/3 ML VIAL SC SCH (09:30)
[2020-12-14] MEDS: NPH, Human Insulin Isophane 300 UNIT/3 ML VIAL SC SCH ×3 (09:33→22:27)
[2020-12-14] MEDS: Amlodipine 10 MG TAB PO SCH (09:33)
[2020-12-14] MEDS: hydrALAZINE 25 MG TAB PO SCH ×3 (09:39→21:33)
[2020-12-14 13:10] LABS: Creatinine, Urine 48.45 mg/dL (63-166)
[2020-12-14] MEDS: Simvastatin 10 MG TAB PO SCH (21:34)
[2020-12-14] MEDS: Amitriptyline HCl 25 MG TAB PO SCH (21:34)
[2020-12-14] MEDS: Nicotine 21 MG PATCH TD SCH (23:51)
[2020-12-15] MEDS: Metoprolol Tartrate 5 MG/5 ML VIAL IVP PRN (02:58)
[2020-12-15] MEDS ORDERED: Diltiazem 125 MG in Sodium Chloride 0.9% 100 ML IVPB SCH (03:45)
[2020-12-15] MEDS: Levothyroxine Sodium 112 MCG TAB PO SCH (04:42)
[2020-12-15] MEDS: HYDROcodone/Acetaminophen 5/325 mg Tablet PO PRN ×5 (04:42→23:18)
[2020-12-15 07:09] LABS: Anion Gap 14 mmol/L (10-20); Calc. Creatinine Clearance 75 mL/min (70-130); Calcium 8.1 mg/dL (7.8-10.44); Carbon Dioxide 25 mmol/L (22-29); Chloride 108 mmol/L (98-107); Glucose 101 mg/dL (70-105); Potassium 4.4 mmol/L (3.5-5.1); Sodium 143 mmol/L (136-145)
[2020-12-15 07:11] LABS: Magnesium 1.9 mg/dL (1.6-2.6)
[2020-12-15 07:21] LABS: BUN (Urea Nitrogen) 141 mg/dL (8.4-25.7)
[2020-12-15 08:09] LABS: Hemoglobin 9.3 g/dL (14.0-18.0); Mean Corpuscular HGB CONC 32.9 g/dL (32.0-36.0); Mean Corpuscular Hemoglobin 29.6 pg (27.0-31.0); Mean Corpuscular Volume 90.2 fL (78.0-98.0); Mean Platelet Volume 7.8 fL (7.4-10.4); Platelet Count 337 thou/uL (130-400); RBC Distribution Width 16.2 % (11.5-14.5); Red Blood Cell (RBC) Count 3.14 mill/uL (4.70-6.10); White Blood Cell (WBC) Count 22.8 thou/uL (4.8-10.8)
[2020-12-15] MEDS: Enoxaparin Sodium 40 MG/0.4 ML SYRINGE SC SCH (08:14)
[2020-12-15] MEDS: Metoprolol Tartrate 50 MG TAB PO SCH ×2 (08:15→20:18)
[2020-12-15] MEDS: Gabapentin 100 MG CAP PO SCH ×3 (08:15→20:17)
[2020-12-15] MEDS: Senokot S 8.6-50 MG TAB PO SCH ×2 (08:15→20:16)
[2020-12-15] MEDS: Polyethylene Glycol 3350 17 GM Packet PO SCH (08:16)
[2020-12-15] MEDS: hydrALAZINE 25 MG TAB PO SCH ×3 (08:16→20:17)
[2020-12-15] MEDS: NPH, Human Insulin Isophane 300 UNIT/3 ML VIAL SC SCH ×2 (08:22→22:47)
[2020-12-15] MEDS ORDERED: Albumin 25% 25 GM/100 ML BOT IVPB SCH (18:00)
[2020-12-15] MEDS: Amitriptyline HCl 25 MG TAB PO SCH (20:17)
[2020-12-15] MEDS: Simvastatin 10 MG TAB PO SCH (21:19)
[2020-12-15] MEDS ORDERED: Metoprolol Tartrate 5 MG/5 ML VIAL IVP SCH (22:30)
[2020-12-15] MEDS: Nicotine 21 MG PATCH TD SCH (23:07)
[2020-12-16] MEDS: HYDROcodone/Acetaminophen 5/325 mg Tablet PO PRN ×2 (05:09→11:56)
[2020-12-16] MEDS: Levothyroxine Sodium 112 MCG TAB PO SCH (05:09)
[2020-12-16 06:09] LABS: #Eosinphils 0.3 thou/uL (0.0-0.7); #Monocytes 0.9 thou/uL (0.11-0.59); #Neutrophils 14.5 thou/uL (1.40-6.50); %Basophils 0.1 % (0.0-1.0); %Eosinophils 1.5 % (0.0-10.0); %Monocytes 4.9 % (0.0-10.0); %Neutrophils 77.5 % (42.0-75.0); Hemoglobin 8.2 g/dL (14.0-18.0); Mean Corpuscular HGB CONC 33.5 g/dL (32.0-36.0); Mean Corpuscular Hemoglobin 30.5 pg (27.0-31.0); Mean Corpuscular Volume 91.1 fL (78.0-98.0); Mean Platelet Volume 7.8 fL (7.4-10.4); Platelet Count 270 thou/uL (130-400); RBC Distribution Width 16.4 % (11.5-14.5); Red Blood Cell (RBC) Count 2.68 mill/uL (4.70-6.10); White Blood Cell (WBC) Count 18.7 thou/uL (4.8-10.8)
[2020-12-16 06:30] LABS: Albumin 2.8 g/dL (3.5-5.0); Anion Gap 13 mmol/L (10-20); Calc. Creatinine Clearance 88 mL/min (70-130); Carbon Dioxide 27 mmol/L (22-29); Chloride 107 mmol/L (98-107); Glucose 135 mg/dL (70-105); Magnesium 2.1 mg/dL (1.6-2.6); Phosphorus 4.9 mg/dL (2.3-4.7); Potassium 4.8 mmol/L (3.5-5.1); Sodium 142 mmol/L (136-145)
[2020-12-16 07:22] LABS: BUN (Urea Nitrogen) 143 mg/dL (8.4-25.7); BUN/Creatinine Ratio 80.34
[2020-12-16] MEDS: Metoprolol Tartrate 50 MG TAB PO SCH ×2 (09:13→21:00)
[2020-12-16] MEDS: Gabapentin 100 MG CAP PO SCH ×3 (09:16→21:01)
[2020-12-16] MEDS: Senokot S 8.6-50 MG TAB PO SCH ×2 (09:17→21:01)
[2020-12-16] MEDS: Enoxaparin Sodium 40 MG/0.4 ML SYRINGE SC SCH (09:17)
[2020-12-16] MEDS: Polyethylene Glycol 3350 17 GM Packet PO SCH ×2 (09:18→09:32)
[2020-12-16] MEDS: NPH, Human Insulin Isophane 300 UNIT/3 ML VIAL SC SCH ×2 (09:19→21:01)
[2020-12-16] MEDS ORDERED: Digoxin 0.5 MG/2 ML AMP SLOW IVP SCH (10:15)
[2020-12-16] MEDS: Albumin 25% 25 GM/100 ML BOT IVPB SCH (18:30)
[2020-12-16] MEDS: Amitriptyline HCl 25 MG TAB PO SCH (21:01)
[2020-12-16] MEDS: Simvastatin 10 MG TAB PO SCH (21:01)
[2020-12-17] MEDS: Albumin 25% 25 GM/100 ML BOT IVPB SCH ×4 (00:50→20:07)
[2020-12-17] MEDS: Nicotine 21 MG PATCH TD SCH ×2 (00:50→20:07)
[2020-12-17] MEDS: Levothyroxine Sodium 112 MCG TAB PO SCH (05:42)
[2020-12-17] MEDS: HumaLOG 300 UNITS/3 ML VIAL SC PRN ×2 (05:59→20:16)
[2020-12-17 06:23] LABS: #Eosinphils 0.2 thou/uL (0.0-0.7); #Lymphocytes 1.3 thou/uL (1.20-3.40); #Monocytes 0.5 thou/uL (0.11-0.59); #Neutrophils 9.9 thou/uL (1.40-6.50); %Basophils 0.3 % (0.0-1.0); %Eosinophils 1.6 % (0.0-10.0); %Lymphocytes 10.8 % (21.0-51.0); %Neutrophils 83.3 % (42.0-75.0); Hemoglobin 8.3 g/dL (14.0-18.0); Mean Corpuscular HGB CONC 32.1 g/dL (32.0-36.0); Mean Corpuscular Hemoglobin 29.2 pg (27.0-31.0); Mean Corpuscular Volume 90.9 fL (78.0-98.0); Mean Platelet Volume 7.8 fL (7.4-10.4); Platelet Count 230 thou/uL (130-400); RBC Distribution Width 16.8 % (11.5-14.5); Red Blood Cell (RBC) Count 2.83 mill/uL (4.70-6.10); White Blood Cell (WBC) Count 11.9 thou/uL (4.8-10.8)
[2020-12-17 06:44] LABS: Albumin 3.1 g/dL (3.5-5.0); Anion Gap 13 mmol/L (10-20); Calc. Creatinine Clearance 116 mL/min (70-130); Calcium 8.3 mg/dL (7.8-10.44); Carbon Dioxide 26 mmol/L (22-29); Chloride 110 mmol/L (98-107); Glucose 281 mg/dL (70-105); Phosphorus 4.5 mg/dL (2.3-4.7); Potassium 4.8 mmol/L (3.5-5.1); Sodium 144 mmol/L (136-145)
[2020-12-17 07:07] LABS: BUN (Urea Nitrogen) 135 mg/dL (8.4-25.7)
[2020-12-17] MEDS: Enoxaparin Sodium 40 MG/0.4 ML SYRINGE SC SCH (08:55)
[2020-12-17] MEDS: Gabapentin 100 MG CAP PO SCH ×3 (08:55→20:08)
[2020-12-17] MEDS: Metoprolol Tartrate 50 MG TAB PO SCH ×2 (08:56→20:08)
[2020-12-17] MEDS: NPH, Human Insulin Isophane 300 UNIT/3 ML VIAL SC SCH ×2 (08:57→20:15)
[2020-12-17] MEDS: Senokot S 8.6-50 MG TAB PO SCH ×2 (08:58→20:08)
[2020-12-17] MEDS: Polyethylene Glycol 3350 17 GM Packet PO SCH ×2 (08:58→09:12)
[2020-12-17] MEDS ORDERED: Digoxin 0.5 MG/2 ML AMP SLOW IVP SCH (09:00)
[2020-12-17] MEDS: HYDROcodone/Acetaminophen 5/325 mg Tablet PO PRN ×2 (09:17→19:08)
[2020-12-17] MEDS ORDERED: Metoprolol Tartrate 50 MG TAB PO SCH (12:45)
[2020-12-17 14:01] LABS: SARS-CoV-2 PCR by NAA Not Detected (NotDetected)
[2020-12-17] MEDS: hydrALAZINE 25 MG TAB PO SCH (16:16)
[2020-12-17] MEDS: Enoxaparin Sodium 120 MG/0.8 ML SYRINGE SC SCH (20:07)
[2020-12-17] MEDS: Simvastatin 10 MG TAB PO SCH (20:08)
[2020-12-17] MEDS: Amitriptyline HCl 25 MG TAB PO SCH (20:09)
[2020-12-18] MEDS: HYDROcodone/Acetaminophen 5/325 mg Tablet PO PRN ×2 (00:32→11:20)
[2020-12-18 04:55] LABS: Albumin 3.1 g/dL (3.5-5.0); Anion Gap 11 mmol/L (10-20); Calc. Creatinine Clearance 132 mL/min (70-130); Calcium 8.6 mg/dL (7.8-10.44); Carbon Dioxide 28 mmol/L (22-29); Chloride 111 mmol/L (98-107); Glucose 239 mg/dL (70-105); Phosphorus 3.7 mg/dL (2.3-4.7); Potassium 4.3 mmol/L (3.5-5.1); Sodium 146 mmol/L (136-145)
[2020-12-18] MEDS: Albumin 25% 25 GM/100 ML BOT IVPB SCH ×2 (05:01→11:19)
[2020-12-18] MEDS: Levothyroxine Sodium 112 MCG TAB PO SCH (05:01)
[2020-12-18 05:06] LABS: BUN (Urea Nitrogen) 130 mg/dL (8.4-25.7)
[2020-12-18] MEDS: HumaLOG 300 UNITS/3 ML VIAL SC PRN (05:11)
[2020-12-18] MEDS: Senokot S 8.6-50 MG TAB PO SCH ×2 (08:12→20:19)
[2020-12-18] MEDS: Metoprolol Tartrate 50 MG TAB PO SCH ×2 (08:12→20:19)
[2020-12-18] MEDS: Gabapentin 100 MG CAP PO SCH ×3 (08:12→20:19)
[2020-12-18] MEDS: Digoxin 0.125 MG TAB PO SCH (08:13)
[2020-12-18] MEDS: Enoxaparin Sodium 120 MG/0.8 ML SYRINGE SC SCH ×2 (08:13→20:20)
[2020-12-18] MEDS: Polyethylene Glycol 3350 17 GM Packet PO SCH ×2 (08:13→08:14)
[2020-12-18] MEDS: NPH, Human Insulin Isophane 300 UNIT/3 ML VIAL SC SCH ×2 (08:17→20:37)
[2020-12-18 08:55] LABS: #Eosinphils 0.6 thou/uL (0.0-0.7); #Lymphocytes 1.6 thou/uL (1.20-3.40); #Monocytes 0.7 thou/uL (0.11-0.59); #Neutrophils 12.2 thou/uL (1.40-6.50); %Eosinophils 4.2 % (0.0-10.0); %Lymphocytes 10.4 % (21.0-51.0); %Monocytes 4.6 % (0.0-10.0); %Neutrophils 80.9 % (42.0-75.0); Mean Corpuscular HGB CONC 32.6 g/dL (32.0-36.0); Mean Corpuscular Volume 91.9 fL (78.0-98.0); Mean Platelet Volume 8.2 fL (7.4-10.4); Platelet Count 195 thou/uL (130-400); RBC Distribution Width 16.9 % (11.5-14.5); White Blood Cell (WBC) Count 15.1 thou/uL (4.8-10.8)
[2020-12-18] MEDS: Amitriptyline HCl 25 MG TAB PO SCH (20:19)
[2020-12-18] MEDS: Simvastatin 10 MG TAB PO SCH (20:38)
[2020-12-18] MEDS: Nicotine 21 MG PATCH TD SCH (20:42)
[2020-12-19] MEDS ORDERED: Furosemide 40 MG/4 ML VIAL ONE (00:55)
[2020-12-19 00:56] LABS: Actual Bicarbonate (HCO3a) 29.2 mEq/L (22-28); Base Excess (BEa) 1.3 mEq/L (-2.0 to +3.0); Carboxyhemoglobin (COHb) 1.6 gm% (0.0-3.0); Hemoglobin (Hb) 8.8 g/dL (14.0-18.0); O2 Tension (PaO2), arterial 60.8 mmHg (80.0-100.0); Potassium - ABG Lab 4.73 mmol/L (3.70-5.30); pH, Arterial 7.26 (7.35-7.45)
[2020-12-19 00:58] LABS: CO2 Tension 67.3 mmHg (35.0-45.0)
[2020-12-19] MEDS ORDERED: Levalbuterol HCl 1.25 MG/0.5 ML NEB NEB PRN (00:58)
[2020-12-19 00:59] LABS: Puncture Site LRA
[2020-12-19] MEDS ORDERED: methylPREDNISolone Sod Succ 40 MG VIAL IVP SCH (01:00)
[2020-12-19 01:04] LABS: ALV-art Gradient 568.075 mmHg (0-20)
[2020-12-19 01:08] LABS: #Eosinphils 0.2 thou/uL (0.0-0.7); #Lymphocytes 1.2 thou/uL (1.20-3.40); #Monocytes 0.7 thou/uL (0.11-0.59); #Neutrophils 13.6 thou/uL (1.40-6.50); %Basophils 0.1 % (0.0-1.0); %Eosinophils 1.3 % (0.0-10.0); %Lymphocytes 7.5 % (21.0-51.0); %Monocytes 4.7 % (0.0-10.0); %Neutrophils 86.4 % (42.0-75.0); Mean Corpuscular Hemoglobin 30.1 pg (27.0-31.0); Mean Corpuscular Volume 94.2 fL (78.0-98.0); Mean Platelet Volume 8.2 fL (7.4-10.4); Platelet Count 197 thou/uL (130-400); RBC Distribution Width 16.7 % (11.5-14.5); Red Blood Cell (RBC) Count 2.66 mill/uL (4.70-6.10); White Blood Cell (WBC) Count 15.8 thou/uL (4.8-10.8)
[2020-12-19] MEDS ORDERED: Furosemide 20 MG/2 ML VIAL SLOW IVP SCH (01:15)
[2020-12-19 01:23] LABS: Lactic Acid 0.6 mmol/L (0.5-2.2)
[2020-12-19 01:40] LABS: ALT (SGPT) 14 U/L (8-55); AST (SGOT) 10 U/L (5-34); Albumin 3.3 g/dL (3.5-5.0); Alkaline Phosphatase 109 U/L (40-110); Anion Gap 17 mmol/L (10-20); BUN (Urea Nitrogen) 123 mg/dL (8.4-25.7); Bilirubin, Total 0.5 mg/dL (0.2-1.2); Calc. Creatinine Clearance 119 mL/min (70-130); Calcium 8.4 mg/dL (7.8-10.44); Carbon Dioxide 22 mmol/L (22-29); Chloride 115 mmol/L (98-107); Globulin 2.5 g/dL (2.4-3.5); Glucose 124 mg/dL (70-105); Potassium 5.1 mmol/L (3.5-5.1); Protein, Total 5.8 g/dL (6.0-8.3); Sodium 149 mmol/L (136-145)
[2020-12-19] MEDS: cefTRIAXone\\ROCEPHIN 1 GM in Sodium Chloride 0.9% 100 ML IVPB SCH (03:19)
[2020-12-19 03:34] LABS: Actual Bicarbonate (HCO3a) 29.1 mEq/L (22-28); Base Excess (BEa) 1.8 mEq/L (-2.0 to +3.0); Calcium, Ionized (arterial) 1.18 mmol/L (1.12-1.30); Carboxyhemoglobin (COHb) 1.4 gm% (0.0-3.0); Hemoglobin (Hb) 8.7 g/dL (14.0-18.0); Potassium - ABG Lab 4.86 mmol/L (3.70-5.30); pH, Arterial 7.29 (7.35-7.45)
[2020-12-19 03:36] LABS: CO2 Tension 62.1 mmHg (35.0-45.0); O2 Tension (PaO2), arterial 59.2 mmHg (80.0-100.0)
[2020-12-19 03:37] LABS: Puncture Site LRA
[2020-12-19 03:38] LABS: ALV-art Gradient 504.875 mmHg (0-20)
[2020-12-19 04:30] LABS: BUN (Urea Nitrogen) 113 mg/dL (8.4-25.7)
[2020-12-19 04:59] LABS: BUN/Creatinine Ratio 91.13; Calc. Creatinine Clearance 125 mL/min (70-130); Calcium 8.7 mg/dL (7.8-10.44); Carbon Dioxide 25 mmol/L (22-29); Chloride 113 mmol/L (98-107); Glucose 122 mg/dL (70-105); Phosphorus 4.9 mg/dL (2.3-4.7); Sodium 147 mmol/L (136-145)
[2020-12-19 05:00] LABS: Albumin 3.3 g/dL (3.5-5.0); Anion Gap 14 mmol/L (10-20)
[2020-12-19] MEDS: Levothyroxine Sodium 112 MCG TAB PO SCH (06:41)
[2020-12-19] MEDS: Metoprolol Tartrate 50 MG TAB PO SCH ×2 (09:50→21:21)
[2020-12-19] MEDS: Gabapentin 100 MG CAP PO SCH ×3 (09:50→21:21)
[2020-12-19] MEDS: Digoxin 0.125 MG TAB PO SCH (09:50)
[2020-12-19] MEDS: Polyethylene Glycol 3350 17 GM Packet PO SCH (09:50)
[2020-12-19] MEDS: NPH, Human Insulin Isophane 300 UNIT/3 ML VIAL SC SCH ×2 (10:01→21:22)
[2020-12-19] MEDS: Enoxaparin Sodium 120 MG/0.8 ML SYRINGE SC SCH (10:01)
[2020-12-19] MEDS: Senokot S 8.6-50 MG TAB PO SCH ×2 (10:02→21:20)
[2020-12-19 11:12] LABS: INR-International Normal Ratio 1.1; PTT 27.9 sec (22.9-36.1); Prothrombin Time 14.7 sec (12.0-14.7)
[2020-12-19] MEDS ORDERED: Metolazone 2.5 MG TAB PO SCH (11:15)
[2020-12-19 11:23] LABS: Complement-C4 22.5 mg/dL (15-53)
[2020-12-19] MEDS: Furosemide 20 MG/2 ML VIAL SLOW IVP SCH ×2 (14:26→21:21)
[2020-12-19] MEDS: HYDROcodone/Acetaminophen 5/325 mg Tablet PO PRN (14:55)
[2020-12-19] MEDS: Nicotine 21 MG PATCH TD SCH (21:00)
[2020-12-19] MEDS: Amitriptyline HCl 25 MG TAB PO SCH (21:20)
[2020-12-19] MEDS: Simvastatin 10 MG TAB PO SCH (21:25)
[2020-12-20] MEDS: cefTRIAXone\\ROCEPHIN 1 GM in Sodium Chloride 0.9% 100 ML IVPB SCH (03:30)
[2020-12-20 03:58] LABS: #Lymphocytes 1.4 thou/uL (1.20-3.40); #Monocytes 1.4 thou/uL (0.11-0.59); #Neutrophils 10.9 thou/uL (1.40-6.50); %Basophils 0.1 % (0.0-1.0); %Eosinophils 0.3 % (0.0-10.0); %Lymphocytes 10.1 % (21.0-51.0); %Neutrophils 79.5 % (42.0-75.0); Mean Corpuscular HGB CONC 32.6 g/dL (32.0-36.0); Mean Corpuscular Hemoglobin 30.7 pg (27.0-31.0); Mean Corpuscular Volume 94.4 fL (78.0-98.0); Mean Platelet Volume 8.3 fL (7.4-10.4); Platelet Count 224 thou/uL (130-400); RBC Distribution Width 16.7 % (11.5-14.5); Red Blood Cell (RBC) Count 2.94 mill/uL (4.70-6.10); White Blood Cell (WBC) Count 13.8 thou/uL (4.8-10.8)
[2020-12-20 04:19] LABS: Anion Gap 14 mmol/L (10-20); Calc. Creatinine Clearance 129 mL/min (70-130); Calcium 8.6 mg/dL (7.8-10.44); Carbon Dioxide 27 mmol/L (22-29); Chloride 113 mmol/L (98-107); Potassium 4.8 mmol/L (3.5-5.1); Sodium 149 mmol/L (136-145)
[2020-12-20 04:26] LABS: Glucose 28 mg/dL (70-105)
[2020-12-20] MEDS: Dextrose 50% Abboject 50 ML SYRINGE SLOW IVP PRN ×2 (04:30→06:30)
[2020-12-20 04:31] LABS: BUN (Urea Nitrogen) 122 mg/dL (8.4-25.7)
[2020-12-20] MEDS: Furosemide 20 MG/2 ML VIAL SLOW IVP SCH ×3 (06:40→21:16)
[2020-12-20] MEDS: Levothyroxine Sodium 112 MCG TAB PO SCH (06:40)
[2020-12-20] MEDS: Digoxin 0.125 MG TAB PO SCH (08:46)
[2020-12-20] MEDS: Metoprolol Tartrate 50 MG TAB PO SCH ×2 (08:47→20:22)
[2020-12-20] MEDS: NPH, Human Insulin Isophane 300 UNIT/3 ML VIAL SC SCH ×2 (08:53→21:16)
[2020-12-20] MEDS ORDERED: Enoxaparin Sodium 120 MG/0.8 ML SYRINGE SC SCH (09:00)
[2020-12-20] MEDS: Gabapentin 100 MG CAP PO SCH ×3 (09:29→20:21)
[2020-12-20] MEDS: Polyethylene Glycol 3350 17 GM Packet PO SCH (09:29)
[2020-12-20] MEDS: HYDROcodone/Acetaminophen 5/325 mg Tablet PO PRN ×3 (09:30→18:23)
[2020-12-20] MEDS: Senokot S 8.6-50 MG TAB PO SCH ×2 (09:30→20:21)
[2020-12-20] MEDS: Amitriptyline HCl 25 MG TAB PO SCH (20:21)
[2020-12-20] MEDS: Simvastatin 10 MG TAB PO SCH (20:22)
[2020-12-20] MEDS: Nicotine 21 MG PATCH TD SCH (22:42)
[2020-12-21] MEDS: cefTRIAXone\\ROCEPHIN 1 GM in Sodium Chloride 0.9% 100 ML IVPB SCH (02:43)
[2020-12-21] MEDS: HYDROcodone/Acetaminophen 5/325 mg Tablet PO PRN ×2 (02:52→20:34)
[2020-12-21 03:56] LABS: #Eosinphils 0.5 thou/uL (0.0-0.7); #Lymphocytes 1.4 thou/uL (1.20-3.40); #Monocytes 0.5 thou/uL (0.11-0.59); #Neutrophils 9.2 thou/uL (1.40-6.50); %Lymphocytes 11.8 % (21.0-51.0); %Monocytes 4.7 % (0.0-10.0); %Neutrophils 79.5 % (42.0-75.0); Hemoglobin 7.9 g/dL (14.0-18.0); Mean Corpuscular HGB CONC 31.3 g/dL (32.0-36.0); Mean Corpuscular Hemoglobin 29.8 pg (27.0-31.0); Mean Platelet Volume 8.5 fL (7.4-10.4); Platelet Count 169 thou/uL (130-400); RBC Distribution Width 16.3 % (11.5-14.5); Red Blood Cell (RBC) Count 2.66 mill/uL (4.70-6.10); White Blood Cell (WBC) Count 11.6 thou/uL (4.8-10.8)
[2020-12-21] MEDS: Dextrose 50% Abboject 50 ML SYRINGE SLOW IVP PRN ×3 (04:10→09:47)
[2020-12-21 04:15] LABS: Albumin 2.7 g/dL (3.5-5.0); Anion Gap 11 mmol/L (10-20); BUN (Urea Nitrogen) 107 mg/dL (8.4-25.7); BUN/Creatinine Ratio 92.24; Calc. Creatinine Clearance 136 mL/min (70-130); Calcium 8.6 mg/dL (7.8-10.44); Carbon Dioxide 29 mmol/L (22-29); Chloride 113 mmol/L (98-107); Phosphorus 4.5 mg/dL (2.3-4.7); Potassium 4.7 mmol/L (3.5-5.1); Sodium 148 mmol/L (136-145)
[2020-12-21 04:24] LABS: Glucose 48 mg/dL (70-105)
[2020-12-21] MEDS: Levothyroxine Sodium 112 MCG TAB PO SCH (05:21)
[2020-12-21] MEDS: Furosemide 20 MG/2 ML VIAL SLOW IVP SCH (05:21)
[2020-12-21] MEDS: Dextrose 5% in Water 1,000 ML IV SCH ×2 (06:12→15:36)
[2020-12-21] MEDS: Senokot S 8.6-50 MG TAB PO SCH ×2 (08:21→23:40)
[2020-12-21] MEDS: Metolazone 2.5 MG TAB PO SCH (08:21)
[2020-12-21] MEDS: Digoxin 0.125 MG TAB PO SCH (08:21)
[2020-12-21] MEDS: Polyethylene Glycol 3350 17 GM Packet PO SCH (08:21)
[2020-12-21] MEDS: Metoprolol Tartrate 50 MG TAB PO SCH ×2 (08:22→20:33)
[2020-12-21] MEDS: Gabapentin 100 MG CAP PO SCH ×3 (08:22→20:34)
[2020-12-21] MEDS: NPH, Human Insulin Isophane 300 UNIT/3 ML VIAL SC SCH (08:31)
[2020-12-21 09:42] LABS: Glucose 42 mg/dL (70-105)
[2020-12-21 16:15] LABS: Digoxin 0.24 ng/mL (0.8-2.0)
[2020-12-21] MEDS: Simvastatin 10 MG TAB PO SCH (20:33)
[2020-12-21] MEDS: Amitriptyline HCl 25 MG TAB PO SCH (20:34)
[2020-12-21] MEDS ORDERED: Furosemide 20 MG/2 ML VIAL SLOW IVP SCH (21:00)
[2020-12-22] MEDS: cefTRIAXone\\ROCEPHIN 1 GM in Sodium Chloride 0.9% 100 ML IVPB SCH (02:35)
[2020-12-22] MEDS: Dextrose 5% in Water 1,000 ML IV SCH ×2 (02:38→13:06)
[2020-12-22 04:25] LABS: Albumin 2.6 g/dL (3.5-5.0); Anion Gap 13 mmol/L (10-20); BUN (Urea Nitrogen) 105 mg/dL (8.4-25.7); BUN/Creatinine Ratio 72.92; Calc. Creatinine Clearance 108 mL/min (70-130); Calcium 8.4 mg/dL (7.8-10.44); Carbon Dioxide 29 mmol/L (22-29); Chloride 109 mmol/L (98-107); Glucose 190 mg/dL (70-105); Phosphorus 4.4 mg/dL (2.3-4.7); Potassium 4.9 mmol/L (3.5-5.1); Sodium 146 mmol/L (136-145)
[2020-12-22] MEDS: Levothyroxine Sodium 112 MCG TAB PO SCH (06:24)
[2020-12-22] MEDS ORDERED: PROPOFOL 200 MG/20 ML VIAL ONE (09:12)
[2020-12-22] MEDS: Gabapentin 100 MG CAP PO SCH ×3 (10:00→21:52)
[2020-12-22] MEDS: Senokot S 8.6-50 MG TAB PO SCH ×2 (10:19→21:52)
[2020-12-22] MEDS: Digoxin 0.125 MG TAB PO SCH (10:19)
[2020-12-22] MEDS: Polyethylene Glycol 3350 17 GM Packet PO SCH (10:20)
[2020-12-22] MEDS: Metoprolol Tartrate 50 MG TAB PO SCH ×2 (10:20→21:51)
[2020-12-22 11:39] LABS: Hemoglobin 8.8 g/dL (14.0-18.0); Mean Corpuscular HGB CONC 29.8 g/dL (32.0-36.0); Mean Corpuscular Hemoglobin 28.3 pg (27.0-31.0); Mean Corpuscular Volume 95.1 fL (78.0-98.0); Mean Platelet Volume 8.6 fL (7.4-10.4); Platelet Count 141 thou/uL (130-400); RBC Distribution Width 16.2 % (11.5-14.5)
[2020-12-22 12:08] LABS: Actual Bicarbonate (HCO3a) 31.7 mEq/L (22-28); Carboxyhemoglobin (COHb) 1.6 gm% (0.0-3.0); Hemoglobin (Hb) 8.5 g/dL (14.0-18.0); Potassium - ABG Lab 4.78 mmol/L (3.70-5.30); pH, Arterial 7.28 (7.35-7.45)
[2020-12-22 12:09] LABS: Puncture Site RRA
[2020-12-22] MEDS ORDERED: Metolazone 2.5 MG TAB PO SCH (12:30)
[2020-12-22] MEDS ORDERED: Furosemide 40 MG/4 ML VIAL SLOW IVP SCH (12:30)
[2020-12-22] MEDS ORDERED: Ventilator Sedation Protocol 1 EACH FS ONE (15:39)
[2020-12-22] MEDS ORDERED: Propofol 1,000 MG/100 ML VIAL IV ONE (16:02)
[2020-12-22] MEDS ORDERED: predniSONE 20 MG TAB PO SCH (16:15)
[2020-12-22] MEDS ORDERED: Morphine 4 MG/ML VIAL SLOW IVP PRN (16:19)
[2020-12-22] MEDS ORDERED: Fentanyl CADD 100 ML IV SCH (16:30)
[2020-12-22] MEDS ORDERED: DISCONTINUE PREVIOUS NARCOTIC PAIN MEDICATIONS AND BENZODIAZEPINES FS SCH (16:30)
[2020-12-22] MEDS ORDERED: Propofol BOLUS 1,000 MG/100 ML VIAL IV PRN (16:30)
[2020-12-22] MEDS ORDERED: Fentanyl BOLUS 250 ML IVPB PRN (16:30)
[2020-12-22 17:07] LABS: Actual Bicarbonate (HCO3a) 30.9 mEq/L (22-28); Base Excess (BEa) 4.8 mEq/L (-2.0 to +3.0); CO2 Tension 54.9 mmHg (35.0-45.0); Calcium, Ionized (arterial) 1.17 mmol/L (1.12-1.30); Carboxyhemoglobin (COHb) 1.8 gm% (0.0-3.0); Hemoglobin (Hb) 8.4 g/dL (14.0-18.0); O2 Tension (PaO2), arterial 69.9 mmHg (80.0-100.0); Potassium - ABG Lab 4.74 mmol/L (3.70-5.30); pH, Arterial 7.37 (7.35-7.45)
[2020-12-22 17:09] LABS: ALV-art Gradient 289.275 mmHg (0-20); Puncture Site RRA
[2020-12-22] MEDS: Lorazepam 2 MG/ML VIAL SLOW IVP PRN (17:25)
[2020-12-22] MEDS: methylPREDNISolone Sod Succ 40 MG VIAL IVP SCH ×2 (17:26→23:38)
[2020-12-22] MEDS ORDERED: Rocuronium Bromide 10 MG/ML (10ML VIAL) IVP SCH (17:45)
[2020-12-22] MEDS ORDERED: PROPOFOL 200 MG/20 ML VIAL IVP SCH (17:45)
[2020-12-22 17:57] LABS: Body Fluid Source Bronchioalveol Lavag; Clarity Hazy (Clear)
[2020-12-22 17:58] LABS: BF Color Colorless; BF RBC Count - Manual 113 /cu.mm; BF WBC/Nonhematics Ct.-Manual 79 /cu.mm; Tube # EDTA
[2020-12-22 18:06] LABS: BF Segmented Neutrophils 6 %
[2020-12-22 18:07] LABS: Cell Count Non Hematic 83 %; Eosinophils 6 %; Lymphocytes 5 %
[2020-12-22] MEDS ORDERED: Furosemide 20 MG/2 ML VIAL SLOW IVP SCH (21:00)
[2020-12-22] MEDS: Amitriptyline HCl 25 MG TAB PO SCH (21:52)
[2020-12-22] MEDS: Simvastatin 10 MG TAB PO SCH (21:52)
[2020-12-22] MEDS: Nicotine 21 MG PATCH TD SCH ×2 (22:01)
[2020-12-22] MEDS: Propofol 1,000 MG/100 ML VIAL IV PRN (22:16)
[2020-12-23] MEDS: cefTRIAXone\\ROCEPHIN 1 GM in Sodium Chloride 0.9% 100 ML IVPB SCH (02:30)
[2020-12-23 04:38] LABS: Hemoglobin 7.7 g/dL (14.0-18.0); Mean Corpuscular HGB CONC 31.2 g/dL (32.0-36.0); Mean Corpuscular Hemoglobin 29.6 pg (27.0-31.0); Mean Corpuscular Volume 94.9 fL (78.0-98.0); Mean Platelet Volume 8.9 fL (7.4-10.4); Platelet Count 127 thou/uL (130-400); Red Blood Cell (RBC) Count 2.61 mill/uL (4.70-6.10); White Blood Cell (WBC) Count 7.2 thou/uL (4.8-10.8)
[2020-12-23] MEDS: methylPREDNISolone Sod Succ 40 MG VIAL IVP SCH ×4 (05:04→23:51)
[2020-12-23] MEDS: Levothyroxine Sodium 112 MCG TAB PO SCH (05:04)
[2020-12-23 05:09] LABS: Albumin 2.7 g/dL (3.5-5.0); Anion Gap 15 mmol/L (10-20); BUN (Urea Nitrogen) 99 mg/dL (8.4-25.7); BUN/Creatinine Ratio 72.79; Calc. Creatinine Clearance 114 mL/min (70-130); Carbon Dioxide 27 mmol/L (22-29); Chloride 108 mmol/L (98-107); Glucose 173 mg/dL (70-105); Phosphorus 4.8 mg/dL (2.3-4.7); Potassium 5.1 mmol/L (3.5-5.1); Sodium 145 mmol/L (136-145)
[2020-12-23] MEDS: Propofol 1,000 MG/100 ML VIAL IV PRN ×3 (05:10→18:32)
[2020-12-23] MEDS: Furosemide 20 MG/2 ML VIAL SLOW IVP SCH ×4 (06:06→23:51)
[2020-12-23 08:18] LABS: Actual Bicarbonate (HCO3a) 28.3 mEq/L (22-28); Base Excess (BEa) 1.4 mEq/L (-2.0 to +3.0); CO2 Tension 58.5 mmHg (35.0-45.0); Carboxyhemoglobin (COHb) 1.4 gm% (0.0-3.0); Hemoglobin (Hb) 8.3 g/dL (14.0-18.0); O2 Tension (PaO2), arterial 63.9 mmHg (80.0-100.0); Potassium - ABG Lab 5.08 mmol/L (3.70-5.30); Puncture Site RRA
[2020-12-23 08:19] LABS: ALV-art Gradient 290.775 mmHg (0-20)
[2020-12-23] MEDS: Metolazone 2.5 MG TAB PO SCH (08:46)
[2020-12-23] MEDS: Polyethylene Glycol 3350 17 GM Packet PO SCH (09:00)
[2020-12-23] MEDS: Digoxin 0.125 MG TAB PO SCH (09:17)
[2020-12-23] MEDS: Senokot S 8.6-50 MG TAB PO SCH ×2 (09:31→21:37)
[2020-12-23] MEDS: Metoprolol Tartrate 50 MG TAB PO SCH ×2 (09:39→21:37)
[2020-12-23] MEDS: Gabapentin 100 MG CAP PO SCH ×3 (09:47→21:37)
[2020-12-23 16:14] LABS: Cytoplasmic (C-ANCA) <1:20 titer (Neg:<1:20); Myeloperoxidase AutoAbs <9.0 U/mL (0.0-9.0); Perinuclear (P-ANCA) <1:20 titer (Neg:<1:20); Proteinase-3 AutoAbs Less than 3.5 U/mL (0.0-3.5)
[2020-12-23] MEDS: Amitriptyline HCl 25 MG TAB PO SCH (21:37)
[2020-12-23] MEDS: Simvastatin 10 MG TAB PO SCH (21:37)
[2020-12-23] MEDS: Nicotine 21 MG PATCH TD SCH (22:01)
[2020-12-24] MEDS: cefTRIAXone\\ROCEPHIN 1 GM in Sodium Chloride 0.9% 100 ML IVPB SCH (03:40)
[2020-12-24] MEDS: Propofol 1,000 MG/100 ML VIAL IV PRN ×5 (03:41→22:28)
[2020-12-24 04:01] LABS: #Lymphocytes 0.3 thou/uL (1.20-3.40); #Monocytes 0.1 thou/uL (0.11-0.59); #Neutrophils 8.4 thou/uL (1.40-6.50); %Lymphocytes 3.7 % (21.0-51.0); %Monocytes 1.3 % (0.0-10.0); %Neutrophils 94.9 % (42.0-75.0); Hemoglobin 8.1 g/dL (14.0-18.0); Mean Corpuscular Hemoglobin 29.2 pg (27.0-31.0); Mean Corpuscular Volume 94.2 fL (78.0-98.0); Mean Platelet Volume 8.9 fL (7.4-10.4); Platelet Count 153 thou/uL (130-400); Red Blood Cell (RBC) Count 2.76 mill/uL (4.70-6.10); White Blood Cell (WBC) Count 8.9 thou/uL (4.8-10.8)
[2020-12-24 04:15] LABS: Phosphorus 5.6 mg/dL (2.3-4.7)
[2020-12-24 04:18] LABS: ALT (SGPT) 15 U/L (8-55); AST (SGOT) 4 U/L (5-34); Albumin 2.7 g/dL (3.5-5.0); Alkaline Phosphatase 149 U/L (40-110); Anion Gap 16 mmol/L (10-20); BUN (Urea Nitrogen) 109 mg/dL (8.4-25.7); BUN/Creatinine Ratio 72.19; Bilirubin, Total 0.3 mg/dL (0.2-1.2); Calc. Creatinine Clearance 101 mL/min (70-130); Calcium 9.5 mg/dL (7.8-10.44); Carbon Dioxide 29 mmol/L (22-29); Chloride 109 mmol/L (98-107); Globulin 3.6 g/dL (2.4-3.5); Glucose 212 mg/dL (70-105); Phosphorus 5.6 mg/dL (2.3-4.7); Potassium 5.1 mmol/L (3.5-5.1); Protein, Total 6.3 g/dL (6.0-8.3); Sodium 149 mmol/L (136-145)
[2020-12-24] MEDS: Levothyroxine Sodium 112 MCG TAB PO SCH (06:12)
[2020-12-24] MEDS: methylPREDNISolone Sod Succ 40 MG VIAL IVP SCH ×4 (06:12→23:01)
[2020-12-24] MEDS: Furosemide 20 MG/2 ML VIAL SLOW IVP SCH ×3 (06:12→22:57)
[2020-12-24] MEDS ORDERED: Dextrose 5% in Water 1,000 ML IV SCH (07:45)
[2020-12-24 08:03] LABS: Actual Bicarbonate (HCO3a) 28.3 mEq/L (22-28); CO2 Tension 53.7 mmHg (35.0-45.0); Calcium, Ionized (arterial) 1.24 mmol/L (1.12-1.30); Carboxyhemoglobin (COHb) 1.1 gm% (0.0-3.0); Hemoglobin (Hb) 8.7 g/dL (14.0-18.0); Potassium - ABG Lab 4.78 mmol/L (3.70-5.30); pH, Arterial 7.34 (7.35-7.45)
[2020-12-24 08:04] LABS: ALV-art Gradient 113.075 mmHg (0-20); Puncture Site RRA
[2020-12-24] MEDS: Gabapentin 100 MG CAP PO SCH ×3 (09:44→20:51)
[2020-12-24] MEDS: Senokot S 8.6-50 MG TAB PO SCH ×2 (09:44→20:51)
[2020-12-24] MEDS: Digoxin 0.125 MG TAB PO SCH (09:44)
[2020-12-24] MEDS: Polyethylene Glycol 3350 17 GM Packet PO SCH (09:44)
[2020-12-24] MEDS: Metoprolol Tartrate 50 MG TAB PO SCH ×2 (09:45→20:53)
[2020-12-24] MEDS: Metolazone 2.5 MG TAB PO SCH (09:55)
[2020-12-24] MEDS ORDERED: Dextrose 5% in Water 1,000 ML IV PRN (10:09)
[2020-12-24] MEDS ORDERED: Dextrose 50% Abboject 50 ML SYRINGE SLOW IVP PRN (10:09)
[2020-12-24] MEDS: HumaLOG 300 UNITS/3 ML VIAL SC PRN ×3 (10:22→22:29)
[2020-12-24] MEDS: Lorazepam 2 MG/ML VIAL SLOW IVP PRN (20:51)
[2020-12-24] MEDS: Amitriptyline HCl 25 MG TAB PO SCH (20:51)
[2020-12-24] MEDS: Simvastatin 10 MG TAB PO SCH (21:55)
[2020-12-24] MEDS: Nicotine 21 MG PATCH TD SCH (22:59)
[2020-12-25] MEDS: cefTRIAXone\\ROCEPHIN 1 GM in Sodium Chloride 0.9% 100 ML IVPB SCH (03:17)
[2020-12-25] MEDS: Propofol 1,000 MG/100 ML VIAL IV PRN ×3 (03:26→20:59)
[2020-12-25] MEDS: HumaLOG 300 UNITS/3 ML VIAL SC PRN ×4 (03:46→23:10)
[2020-12-25 03:54] LABS: #Lymphocytes 0.3 thou/uL (1.20-3.40); #Monocytes 0.2 thou/uL (0.11-0.59); %Basophils 0.1 % (0.0-1.0); %Lymphocytes 4.7 % (21.0-51.0); %Monocytes 2.5 % (0.0-10.0); %Neutrophils 92.7 % (42.0-75.0); Hemoglobin 8.5 g/dL (14.0-18.0); Mean Corpuscular HGB CONC 31.2 g/dL (32.0-36.0); Mean Corpuscular Hemoglobin 29.1 pg (27.0-31.0); Mean Corpuscular Volume 93.3 fL (78.0-98.0); Mean Platelet Volume 8.7 fL (7.4-10.4); Platelet Count 136 thou/uL (130-400); RBC Distribution Width 16.1 % (11.5-14.5); Red Blood Cell (RBC) Count 2.92 mill/uL (4.70-6.10); White Blood Cell (WBC) Count 6.5 thou/uL (4.8-10.8)
[2020-12-25 04:16] LABS: ALT (SGPT) 11 U/L (8-55); AST (SGOT) 4 U/L (5-34); Albumin 2.7 g/dL (3.5-5.0); Alkaline Phosphatase 136 U/L (40-110); Anion Gap 14 mmol/L (10-20); BUN (Urea Nitrogen) 97 mg/dL (8.4-25.7); Bilirubin, Total 0.3 mg/dL (0.2-1.2); Calc. Creatinine Clearance 123 mL/min (70-130); Calcium 8.7 mg/dL (7.8-10.44); Carbon Dioxide 32 mmol/L (22-29); Chloride 107 mmol/L (98-107); Globulin 3.2 g/dL (2.4-3.5); Glucose 359 mg/dL (70-105); Magnesium 2.2 mg/dL (1.6-2.6); Phosphorus 4.5 mg/dL (2.3-4.7); Potassium 4.4 mmol/L (3.5-5.1); Protein, Total 5.9 g/dL (6.0-8.3); Sodium 149 mmol/L (136-145)
[2020-12-25] MEDS: Furosemide 20 MG/2 ML VIAL SLOW IVP SCH ×3 (06:20→21:34)
[2020-12-25] MEDS: Levothyroxine Sodium 112 MCG TAB PO SCH (06:20)
[2020-12-25] MEDS: methylPREDNISolone Sod Succ 40 MG VIAL IVP SCH ×4 (06:20→23:11)
[2020-12-25 06:51] LABS: Actual Bicarbonate (HCO3a) 35.2 mEq/L (22-28); Base Excess (BEa) 9.3 mEq/L (-2.0 to +3.0); CO2 Tension 56.4 mmHg (35.0-45.0); Calcium, Ionized (arterial) 1.18 mmol/L (1.12-1.30); Carboxyhemoglobin (COHb) 0.4 gm% (0.0-3.0); Hemoglobin (Hb) 8.8 g/dL (14.0-18.0); O2 Tension (PaO2), arterial 67.2 mmHg (80.0-100.0); Potassium - ABG Lab 4.08 mmol/L (3.70-5.30); pH, Arterial 7.41 (7.35-7.45)
[2020-12-25 06:55] LABS: Puncture Site LRA
[2020-12-25] MEDS ORDERED: Spironolactone 25 MG TAB PO SCH (08:00)
[2020-12-25] MEDS ORDERED: Enoxaparin Sodium 40 MG/0.4 ML SYRINGE SC SCH (09:00)
[2020-12-25] MEDS: Polyethylene Glycol 3350 17 GM Packet PO SCH (09:08)
[2020-12-25] MEDS: Digoxin 0.125 MG TAB PO SCH (09:09)
[2020-12-25] MEDS: Gabapentin 100 MG CAP PO SCH ×3 (09:09→20:59)
[2020-12-25] MEDS: Metolazone 2.5 MG TAB PO SCH (09:09)
[2020-12-25] MEDS: Senokot S 8.6-50 MG TAB PO SCH ×2 (09:09→21:00)
[2020-12-25] MEDS: NPH, Human Insulin Isophane 300 UNIT/3 ML VIAL SC SCH ×2 (09:10→21:52)
[2020-12-25] MEDS: Metoprolol Tartrate 50 MG TAB PO SCH (09:10)
[2020-12-25] MEDS: Metoprolol Tartrate 5 MG/5 ML VIAL IVP PRN (10:05)
[2020-12-25] MEDS: Lorazepam 2 MG/ML VIAL SLOW IVP PRN (10:25)
[2020-12-25] MEDS ORDERED: Metoprolol Tartrate 25 MG TAB PER TUBE SCH (11:15)
[2020-12-25] MEDS: Amiodarone 450 MG, Admixture Fee 1 EACH in Dextrose 5% in Water 250 ML IVPB SCH (13:05)
[2020-12-25] MEDS: Enoxaparin Sodium 100 MG/ML SYRINGE SC SCH (20:59)
[2020-12-25] MEDS: Amitriptyline HCl 25 MG TAB PO SCH (21:01)
[2020-12-25] MEDS: Metoprolol Tartrate 50 MG TAB PER TUBE SCH (21:14)
[2020-12-25] MEDS: Simvastatin 10 MG TAB PO SCH (21:51)
[2020-12-25] MEDS: Nicotine 21 MG PATCH TD SCH (23:11)
[2020-12-26] MEDS: Propofol 1,000 MG/100 ML VIAL IV PRN ×5 (02:23→23:07)
[2020-12-26 04:11] LABS: #Lymphocytes 0.4 thou/uL (1.20-3.40); #Monocytes 0.3 thou/uL (0.11-0.59); #Neutrophils 8.1 thou/uL (1.40-6.50); %Basophils 0.1 % (0.0-1.0); %Lymphocytes 4.1 % (21.0-51.0); %Monocytes 2.8 % (0.0-10.0); %Neutrophils 92.9 % (42.0-75.0); Hemoglobin 9.4 g/dL (14.0-18.0); Mean Corpuscular HGB CONC 31.3 g/dL (32.0-36.0); Mean Corpuscular Hemoglobin 29.1 pg (27.0-31.0); Mean Corpuscular Volume 93.2 fL (78.0-98.0); Mean Platelet Volume 9.2 fL (7.4-10.4); Platelet Count 140 thou/uL (130-400); RBC Distribution Width 15.8 % (11.5-14.5); Red Blood Cell (RBC) Count 3.23 mill/uL (4.70-6.10); White Blood Cell (WBC) Count 8.7 thou/uL (4.8-10.8)
[2020-12-26 04:30] LABS: ALT (SGPT) 9 U/L (8-55); AST (SGOT) 4 U/L (5-34); Albumin 2.6 g/dL (3.5-5.0); Alkaline Phosphatase 135 U/L (40-110); Anion Gap 13 mmol/L (10-20); BUN (Urea Nitrogen) 94 mg/dL (8.4-25.7); Bilirubin, Total 0.3 mg/dL (0.2-1.2); Calc. Creatinine Clearance 112 mL/min (70-130); Calcium 8.6 mg/dL (7.8-10.44); Carbon Dioxide 33 mmol/L (22-29); Chloride 106 mmol/L (98-107); Globulin 3.3 g/dL (2.4-3.5); Glucose 331 mg/dL (70-105); Phosphorus 3.9 mg/dL (2.3-4.7); Potassium 4.2 mmol/L (3.5-5.1); Protein, Total 5.9 g/dL (6.0-8.3); Sodium 148 mmol/L (136-145)
[2020-12-26] MEDS: HumaLOG 300 UNITS/3 ML VIAL SC PRN ×4 (05:44→22:51)
[2020-12-26] MEDS: methylPREDNISolone Sod Succ 40 MG VIAL IVP SCH ×3 (05:45→17:23)
[2020-12-26] MEDS: Furosemide 20 MG/2 ML VIAL SLOW IVP SCH ×3 (05:45→21:24)
[2020-12-26] MEDS: Levothyroxine Sodium 112 MCG TAB PO SCH (06:17)
[2020-12-26 06:56] LABS: Actual Bicarbonate (HCO3a) 33.2 mEq/L (22-28); Base Excess (BEa) 8.5 mEq/L (-2.0 to +3.0); CO2 Tension 46.9 mmHg (35.0-45.0); Calcium, Ionized (arterial) 1.19 mmol/L (1.12-1.30); Carboxyhemoglobin (COHb) 0.5 gm% (0.0-3.0); Hemoglobin (Hb) 9.7 g/dL (14.0-18.0); O2 Tension (PaO2), arterial 72.1 mmHg (80.0-100.0); Potassium - ABG Lab 3.83 mmol/L (3.70-5.30); pH, Arterial 7.47 (7.35-7.45)
[2020-12-26 06:57] LABS: ALV-art Gradient 154.475 mmHg (0-20); Puncture Site RRA
[2020-12-26] MEDS: Senokot S 8.6-50 MG TAB PO SCH ×2 (09:21→21:23)
[2020-12-26] MEDS: Enoxaparin Sodium 100 MG/ML SYRINGE SC SCH ×2 (09:21→21:22)
[2020-12-26] MEDS: Gabapentin 100 MG CAP PO SCH ×3 (09:22→21:29)
[2020-12-26] MEDS: Metoprolol Tartrate 50 MG TAB PER TUBE SCH ×2 (09:22→21:23)
[2020-12-26] MEDS: Digoxin 0.125 MG TAB PO SCH (09:22)
[2020-12-26] MEDS: Polyethylene Glycol 3350 17 GM Packet PO SCH (09:23)
[2020-12-26] MEDS: Spironolactone 25 MG TAB PO SCH (09:23)
[2020-12-26] MEDS: Metolazone 2.5 MG TAB PO SCH (09:26)
[2020-12-26] MEDS: NPH, Human Insulin Isophane 300 UNIT/3 ML VIAL SC SCH (09:27)
[2020-12-26] MEDS: Amiodarone 450 MG, Admixture Fee 1 EACH in Dextrose 5% in Water 250 ML IVPB SCH (13:24)
[2020-12-26] MEDS ORDERED: NPH, Human Insulin Isophane 300 UNIT/3 ML VIAL SC SCH (21:00)
[2020-12-26] MEDS: Amitriptyline HCl 25 MG TAB PO SCH (21:23)
[2020-12-26] MEDS: Simvastatin 10 MG TAB PO SCH (23:01)
[2020-12-26] MEDS: Nicotine 21 MG PATCH TD SCH (23:01)
[2020-12-27] MEDS: methylPREDNISolone Sod Succ 40 MG VIAL IVP SCH ×4 (02:23→20:15)
[2020-12-27] MEDS: Propofol 1,000 MG/100 ML VIAL IV PRN ×4 (03:39→20:18)
[2020-12-27] MEDS: Amiodarone 450 MG, Admixture Fee 1 EACH in Dextrose 5% in Water 250 ML IVPB SCH ×2 (03:40→20:18)
[2020-12-27 04:08] LABS: #Lymphocytes 0.7 thou/uL (1.20-3.40); #Monocytes 0.5 thou/uL (0.11-0.59); #Neutrophils 7.5 thou/uL (1.40-6.50); %Basophils 0.3 % (0.0-1.0); %Lymphocytes 8.1 % (21.0-51.0); %Monocytes 5.7 % (0.0-10.0); Hemoglobin 8.9 g/dL (14.0-18.0); Mean Corpuscular HGB CONC 30.9 g/dL (32.0-36.0); Mean Corpuscular Hemoglobin 28.5 pg (27.0-31.0); Mean Corpuscular Volume 92.4 fL (78.0-98.0); Mean Platelet Volume 8.7 fL (7.4-10.4); Platelet Count 128 thou/uL (130-400); RBC Distribution Width 15.8 % (11.5-14.5); Red Blood Cell (RBC) Count 3.13 mill/uL (4.70-6.10); White Blood Cell (WBC) Count 8.7 thou/uL (4.8-10.8)
[2020-12-27 04:40] LABS: ALT (SGPT) 7 U/L (8-55); AST (SGOT) 5 U/L (5-34); Albumin 2.5 g/dL (3.5-5.0); Alkaline Phosphatase 120 U/L (40-110); BUN (Urea Nitrogen) 86 mg/dL (8.4-25.7); Bilirubin, Total 0.2 mg/dL (0.2-1.2); Calc. Creatinine Clearance 164 mL/min (70-130); Calcium 8.4 mg/dL (7.8-10.44); Globulin 2.9 g/dL (2.4-3.5); Glucose 219 mg/dL (70-105); Phosphorus 3.7 mg/dL (2.3-4.7); Protein, Total 5.4 g/dL (6.0-8.3)
[2020-12-27 04:49] LABS: Anion Gap 14 mmol/L (10-20); Carbon Dioxide 34 mmol/L (22-29); Chloride 102 mmol/L (98-107); Potassium 3.8 mmol/L (3.5-5.1); Sodium 146 mmol/L (136-145)
[2020-12-27] MEDS: Furosemide 20 MG/2 ML VIAL SLOW IVP SCH ×3 (05:59→21:04)
[2020-12-27] MEDS: Levothyroxine Sodium 112 MCG TAB PO SCH (06:00)
[2020-12-27] MEDS: HumaLOG 300 UNITS/3 ML VIAL SC PRN ×3 (06:01→18:16)
[2020-12-27 06:59] LABS: Actual Bicarbonate (HCO3a) 37.3 mEq/L (22-28); Base Excess (BEa) 12.9 mEq/L (-2.0 to +3.0); CO2 Tension 48.2 mmHg (35.0-45.0); Calcium, Ionized (arterial) 1.14 mmol/L (1.12-1.30); Carboxyhemoglobin (COHb) 0.9 gm% (0.0-3.0); Hemoglobin (Hb) 9.2 g/dL (14.0-18.0); O2 Tension (PaO2), arterial 62.5 mmHg (80.0-100.0); Potassium - ABG Lab 3.67 mmol/L (3.70-5.30); pH, Arterial 7.51 (7.35-7.45)
[2020-12-27 07:00] LABS: Puncture Site RRA
[2020-12-27 08:09] LABS: Bilirubin Negative (Negative); Blood, Urine 2+ (Negative); Clarity Turbid (Clear); Glucose, Urine (Dipstick) Normal (Negative); Ketone, Urine Negative (Negative); Leukocyte Negative Leu/uL (Negative); Nitrite Negative (Negative); Protein, Urine (Dipstick) 200 mg/dL (Neg-Trace); Specific Gravity, Urine 1.015 (1.002-1.036); Squamous Epithelial 0-3 HPF (0-3); Urobilinogen Normal mg/dL (Less than 2); WBC/HPF 0-3 HPF (0-3); pH, Urine 5.5 (5.0-9.0)
[2020-12-27 08:27] LABS: RBC/HPF 0-3 HPF (0-3)
[2020-12-27 08:28] LABS: Bacteria/HPF Rare-Few HPF (None Seen)
[2020-12-27] MEDS: Polyethylene Glycol 3350 17 GM Packet PO SCH (10:23)
[2020-12-27] MEDS: Enoxaparin Sodium 100 MG/ML SYRINGE SC SCH ×2 (10:23→20:17)
[2020-12-27] MEDS: Senokot S 8.6-50 MG TAB PO SCH ×2 (10:24→20:16)
[2020-12-27] MEDS: Gabapentin 100 MG CAP PO SCH ×3 (10:24→20:15)
[2020-12-27] MEDS: Metoprolol Tartrate 50 MG TAB PER TUBE SCH ×2 (10:25→20:16)
[2020-12-27] MEDS: Spironolactone 25 MG TAB PO SCH (10:26)
[2020-12-27] MEDS: Digoxin 0.125 MG TAB PO SCH (10:26)
[2020-12-27] MEDS: Metolazone 2.5 MG TAB PO SCH (10:30)
[2020-12-27] MEDS ORDERED: Lisinopril 5 MG TAB PO SCH (10:30)
[2020-12-27] MEDS: NPH, Human Insulin Isophane 300 UNIT/3 ML VIAL SC SCH ×2 (11:00→20:17)
[2020-12-27] MEDS ORDERED: Pantoprazole 40 MG GRANULES PACKET PER TUBE SCH (11:45)
[2020-12-27] MEDS ORDERED: Metolazone 2.5 MG TAB PO SCH (14:00)
[2020-12-27 16:52] LABS: SARS-CoV-2 PCR by NAA Not Detected (NotDetected)
[2020-12-27] MEDS: Amitriptyline HCl 25 MG TAB PO SCH (20:17)
[2020-12-27] MEDS: Simvastatin 10 MG TAB PO SCH (20:18)
[2020-12-27] MEDS: Nicotine 21 MG PATCH TD SCH (22:22)
[2020-12-28] MEDS: methylPREDNISolone Sod Succ 40 MG VIAL IVP SCH ×5 (00:20→23:01)
[2020-12-28] MEDS: Propofol 1,000 MG/100 ML VIAL IV PRN ×5 (01:23→22:10)
[2020-12-28 04:13] LABS: #Lymphocytes 0.5 thou/uL (1.20-3.40); #Monocytes 0.4 thou/uL (0.11-0.59); #Neutrophils 10.6 thou/uL (1.40-6.50); %Basophils 0.2 % (0.0-1.0); %Eosinophils 0.1 % (0.0-10.0); %Lymphocytes 4.3 % (21.0-51.0); %Neutrophils 92.4 % (42.0-75.0); Hemoglobin 8.9 g/dL (14.0-18.0); Mean Corpuscular HGB CONC 32.7 g/dL (32.0-36.0); Mean Corpuscular Hemoglobin 29.7 pg (27.0-31.0); Mean Corpuscular Volume 90.8 fL (78.0-98.0); Mean Platelet Volume 9.3 fL (7.4-10.4); Platelet Count 127 thou/uL (130-400); RBC Distribution Width 15.5 % (11.5-14.5); White Blood Cell (WBC) Count 11.5 thou/uL (4.8-10.8)
[2020-12-28 04:35] LABS: ALT (SGPT) 7 U/L (8-55); AST (SGOT) 5 U/L (5-34); Albumin 2.3 g/dL (3.5-5.0); Alkaline Phosphatase 108 U/L (40-110); BUN (Urea Nitrogen) 82 mg/dL (8.4-25.7); Bilirubin, Total 0.3 mg/dL (0.2-1.2); Calc. Creatinine Clearance 184 mL/min (70-130); Globulin 2.7 g/dL (2.4-3.5); Glucose 122 mg/dL (70-105); Phosphorus 3.8 mg/dL (2.3-4.7)
[2020-12-28 04:45] LABS: Anion Gap 12 mmol/L (10-20); Carbon Dioxide 37 mmol/L (22-29); Chloride 101 mmol/L (98-107); Potassium 3.9 mmol/L (3.5-5.1); Sodium 146 mmol/L (136-145)
[2020-12-28] MEDS: Furosemide 20 MG/2 ML VIAL SLOW IVP SCH (06:07)
[2020-12-28] MEDS: Levothyroxine Sodium 112 MCG TAB PO SCH (06:07)
[2020-12-28 07:35] LABS: Actual Bicarbonate (HCO3a) 36.2 mEq/L (22-28); Base Excess (BEa) 11.7 mEq/L (-2.0 to +3.0); CO2 Tension 48.2 mmHg (35.0-45.0); Calcium, Ionized (arterial) 1.14 mmol/L (1.12-1.30); Carboxyhemoglobin (COHb) 1.4 gm% (0.0-3.0); Hemoglobin (Hb) 8.4 g/dL (14.0-18.0); O2 Tension (PaO2), arterial 67.1 mmHg (80.0-100.0); Potassium - ABG Lab 3.66 mmol/L (3.70-5.30); pH, Arterial 7.49 (7.35-7.45)
[2020-12-28 08:12] LABS: Puncture Site RRA
[2020-12-28] MEDS ORDERED: Metolazone 5 MG TAB PO SCH (08:30)
[2020-12-28] MEDS: Pantoprazole 40 MG GRANULES PACKET PER TUBE SCH (08:38)
[2020-12-28] MEDS: Senokot S 8.6-50 MG TAB PO SCH ×2 (08:38→20:05)
[2020-12-28] MEDS: Metoprolol Tartrate 50 MG TAB PER TUBE SCH ×2 (08:38→20:05)
[2020-12-28] MEDS: Digoxin 0.125 MG TAB PO SCH (08:39)
[2020-12-28] MEDS: Gabapentin 100 MG CAP PO SCH ×3 (08:39→20:04)
[2020-12-28] MEDS: Enoxaparin Sodium 100 MG/ML SYRINGE SC SCH ×2 (08:41→20:04)
[2020-12-28] MEDS: Spironolactone 100 MG TAB PO SCH (08:43)
[2020-12-28] MEDS: Polyethylene Glycol 3350 17 GM Packet PO SCH (08:43)
[2020-12-28] MEDS: NPH, Human Insulin Isophane 300 UNIT/3 ML VIAL SC SCH ×2 (09:04→21:17)
[2020-12-28] MEDS: Amiodarone 450 MG, Admixture Fee 1 EACH in Dextrose 5% in Water 250 ML IVPB SCH (11:41)
[2020-12-28] MEDS: acetaZOLAMIDE Sodium 500 mg Vial IVP SCH (20:04)
[2020-12-28] MEDS: Amitriptyline HCl 25 MG TAB PO SCH (20:04)
[2020-12-28] MEDS: Simvastatin 10 MG TAB PO SCH (20:05)
[2020-12-28] MEDS: Nicotine 21 MG PATCH TD SCH (22:10)
[2020-12-29] MEDS: Propofol 1,000 MG/100 ML VIAL IV PRN ×3 (01:39→13:03)
[2020-12-29] MEDS: Amiodarone 450 MG, Admixture Fee 1 EACH in Dextrose 5% in Water 250 ML IVPB SCH ×2 (01:39→17:53)
[2020-12-29 04:33] LABS: #Lymphocytes 0.7 thou/uL (1.20-3.40); #Monocytes 0.4 thou/uL (0.11-0.59); #Neutrophils 10.5 thou/uL (1.40-6.50); %Eosinophils 0.1 % (0.0-10.0); %Lymphocytes 5.8 % (21.0-51.0); %Monocytes 3.5 % (0.0-10.0); %Neutrophils 90.5 % (42.0-75.0); Hemoglobin 8.8 g/dL (14.0-18.0); Mean Corpuscular HGB CONC 30.3 g/dL (32.0-36.0); Mean Corpuscular Hemoglobin 27.8 pg (27.0-31.0); Mean Corpuscular Volume 91.8 fL (78.0-98.0); Mean Platelet Volume 9.3 fL (7.4-10.4); Platelet Count 117 thou/uL (130-400); RBC Distribution Width 15.6 % (11.5-14.5); Red Blood Cell (RBC) Count 3.15 mill/uL (4.70-6.10); White Blood Cell (WBC) Count 11.6 thou/uL (4.8-10.8)
[2020-12-29] MEDS: Levothyroxine Sodium 112 MCG TAB PO SCH (05:29)
[2020-12-29] MEDS: methylPREDNISolone Sod Succ 40 MG VIAL IVP SCH ×3 (05:29→20:17)
[2020-12-29 05:31] LABS: Chloride 100 mmol/L (98-107); Potassium 3.8 mmol/L (3.5-5.1); Sodium 145 mmol/L (136-145)
[2020-12-29 05:32] LABS: Calcium 8.3 mg/dL (7.8-10.44); Glucose 117 mg/dL (70-105)
[2020-12-29 05:36] LABS: BUN (Urea Nitrogen) 79 mg/dL (8.4-25.7); Calc. Creatinine Clearance 177 mL/min (70-130)
[2020-12-29 05:43] LABS: Carbon Dioxide 34 mmol/L (22-29)
[2020-12-29 05:52] LABS: Anion Gap 15 mmol/L (10-20)
[2020-12-29 07:33] LABS: Actual Bicarbonate (HCO3a) 37.3 mEq/L (22-28); Base Excess (BEa) 13.1 mEq/L (-2.0 to +3.0); CO2 Tension 46.1 mmHg (35.0-45.0); Calcium, Ionized (arterial) 1.14 mmol/L (1.12-1.30); Carboxyhemoglobin (COHb) 0.2 gm% (0.0-3.0); Hemoglobin (Hb) 9.9 g/dL (14.0-18.0); Potassium - ABG Lab 3.74 mmol/L (3.70-5.30); pH, Arterial 7.53 (7.35-7.45)
[2020-12-29 07:34] LABS: ALV-art Gradient 169.675 mmHg (0-20); O2 Tension (PaO2), arterial 57.9 mmHg (80.0-100.0); Puncture Site LRA
[2020-12-29] MEDS: Polyethylene Glycol 3350 17 GM Packet PO SCH (09:18)
[2020-12-29] MEDS: Gabapentin 100 MG CAP PO SCH ×3 (09:18→19:07)
[2020-12-29] MEDS: Enoxaparin Sodium 100 MG/ML SYRINGE SC SCH ×2 (09:19→20:17)
[2020-12-29] MEDS: Senokot S 8.6-50 MG TAB PO SCH ×2 (09:19→19:09)
[2020-12-29] MEDS: Metoprolol Tartrate 50 MG TAB PER TUBE SCH ×2 (09:19→19:08)
[2020-12-29] MEDS: Pantoprazole 40 MG GRANULES PACKET PER TUBE SCH (09:19)
[2020-12-29] MEDS: acetaZOLAMIDE Sodium 500 mg Vial IVP SCH ×2 (09:20→20:17)
[2020-12-29] MEDS: Spironolactone 100 MG TAB PO SCH (09:20)
[2020-12-29] MEDS ORDERED: Sterile Water 10 ML ONE (09:23)
[2020-12-29] MEDS ORDERED: Furosemide 40 MG/4 ML VIAL SLOW IVP SCH (09:45)
[2020-12-29] MEDS: NPH, Human Insulin Isophane 300 UNIT/3 ML VIAL SC SCH ×3 (10:28→21:23)
[2020-12-29] MEDS ORDERED: Lisinopril 10 MG TAB PO SCH (12:15)
[2020-12-29] MEDS: Furosemide 20 MG/2 ML VIAL SLOW IVP SCH ×2 (16:06→21:15)
[2020-12-29] MEDS: Doxycycline 100 MG CAP PO SCH (17:53)
[2020-12-29] MEDS: Amitriptyline HCl 25 MG TAB PO SCH (19:08)
[2020-12-29] MEDS: metroNIDAZOLE 500 MG TAB PO SCH (19:08)
[2020-12-29] MEDS: Simvastatin 10 MG TAB PO SCH (19:09)
[2020-12-29] MEDS: Nicotine 21 MG PATCH TD SCH (22:16)
[2020-12-30] MEDS ORDERED: hydrALAZINE 20 MG/ML VIAL SLOW IVP PRN (01:10)
[2020-12-30] MEDS: Dextrose 50% Abboject 50 ML SYRINGE SLOW IVP PRN ×2 (04:20→12:30)
[2020-12-30] MEDS: Doxycycline 100 MG CAP PO SCH ×2 (04:31→16:14)
[2020-12-30] MEDS: Furosemide 20 MG/2 ML VIAL SLOW IVP SCH ×3 (05:07→21:41)
[2020-12-30] MEDS: Levothyroxine Sodium 112 MCG TAB PO SCH (05:07)
[2020-12-30 06:39] LABS: Hemoglobin 10.5 g/dL (14.0-18.0); Mean Corpuscular HGB CONC 32.4 g/dL (32.0-36.0); Mean Corpuscular Hemoglobin 29.2 pg (27.0-31.0); Mean Corpuscular Volume 90.1 fL (78.0-98.0); Mean Platelet Volume 9.6 fL (7.4-10.4); Platelet Count 164 thou/uL (130-400); RBC Distribution Width 15.4 % (11.5-14.5); White Blood Cell (WBC) Count 12.8 thou/uL (4.8-10.8)
[2020-12-30 06:58] LABS: Albumin 2.5 g/dL (3.5-5.0); BUN (Urea Nitrogen) 63 mg/dL (8.4-25.7); BUN/Creatinine Ratio 79.75; Calc. Creatinine Clearance 179 mL/min (70-130); Calcium 8.8 mg/dL (7.8-10.44); Glucose 65 mg/dL (70-105); Magnesium 1.9 mg/dL (1.6-2.6); Phosphorus 4.1 mg/dL (2.3-4.7)
[2020-12-30 07:07] LABS: Anion Gap 15 mmol/L (10-20); Carbon Dioxide 36 mmol/L (22-29); Chloride 99 mmol/L (98-107); Potassium 3.5 mmol/L (3.5-5.1); Sodium 146 mmol/L (136-145)
[2020-12-30] MEDS: Spironolactone 100 MG TAB PO SCH (08:00)
[2020-12-30] MEDS: Gabapentin 100 MG CAP PO SCH ×3 (08:29→20:34)
[2020-12-30] MEDS: Metoprolol Tartrate 50 MG TAB PER TUBE SCH (08:30)
[2020-12-30] MEDS: metroNIDAZOLE 500 MG TAB PO SCH ×3 (08:30→20:37)
[2020-12-30] MEDS: NPH, Human Insulin Isophane 300 UNIT/3 ML VIAL SC SCH ×2 (08:30→20:35)
[2020-12-30] MEDS: Polyethylene Glycol 3350 17 GM Packet PO SCH (08:31)
[2020-12-30] MEDS: Pantoprazole 40 MG GRANULES PACKET PER TUBE SCH (08:31)
[2020-12-30] MEDS: Senokot S 8.6-50 MG TAB PO SCH ×2 (08:31→20:35)
[2020-12-30] MEDS ORDERED: Lisinopril 10 MG TAB PO SCH (09:00)
[2020-12-30] MEDS: Enoxaparin Sodium 100 MG/ML SYRINGE SC SCH ×2 (09:58→20:26)
[2020-12-30] MEDS: methylPREDNISolone Sod Succ 40 MG VIAL IVP SCH ×2 (09:58→20:26)
[2020-12-30] MEDS: acetaZOLAMIDE Sodium 500 mg Vial IVP SCH ×2 (09:58→20:25)
[2020-12-30] MEDS: Dextrose 5% in Water 1,000 ML IV PRN ×2 (12:30→21:40)
[2020-12-30] MEDS ORDERED: Sterile Water 10 ML ONE (20:27)
[2020-12-30] MEDS: Lisinopril 10 MG TAB PO SCH (20:34)
[2020-12-30] MEDS: Metoprolol Tartrate 50 MG TAB PO SCH (20:34)
[2020-12-30] MEDS: Amitriptyline HCl 25 MG TAB PO SCH (20:34)
[2020-12-30] MEDS: Simvastatin 10 MG TAB PO SCH (20:35)
[2020-12-30] MEDS: Nicotine 21 MG PATCH TD SCH (22:06)
[2020-12-31 05:12] LABS: Albumin 2.3 g/dL (3.5-5.0); BUN (Urea Nitrogen) 47 mg/dL (8.4-25.7); BUN/Creatinine Ratio 59.49; Calc. Creatinine Clearance 179 mL/min (70-130); Calcium 8.6 mg/dL (7.8-10.44); Glucose 111 mg/dL (70-105); Phosphorus 4.2 mg/dL (2.3-4.7)
[2020-12-31] MEDS: Levothyroxine Sodium 112 MCG TAB PO SCH (05:15)
[2020-12-31] MEDS: Doxycycline 100 MG CAP PO SCH ×2 (05:15→16:03)
[2020-12-31] MEDS: Furosemide 20 MG/2 ML VIAL SLOW IVP SCH ×3 (05:18→22:19)
[2020-12-31 05:21] LABS: Anion Gap 15 mmol/L (10-20); Carbon Dioxide 34 mmol/L (22-29); Chloride 97 mmol/L (98-107); Potassium 3.5 mmol/L (3.5-5.1); Sodium 142 mmol/L (136-145)
[2020-12-31] MEDS: Dextrose 5% in Water 1,000 ML IV PRN (05:22)
[2020-12-31] MEDS: acetaZOLAMIDE Sodium 500 mg Vial IVP SCH ×2 (08:33→20:23)
[2020-12-31] MEDS: methylPREDNISolone Sod Succ 40 MG VIAL IVP SCH ×2 (08:33→20:24)
[2020-12-31] MEDS: Enoxaparin Sodium 100 MG/ML SYRINGE SC SCH ×2 (08:34→20:24)
[2020-12-31] MEDS: NPH, Human Insulin Isophane 300 UNIT/3 ML VIAL SC SCH ×2 (08:53→21:17)
[2020-12-31] MEDS: Spironolactone 100 MG TAB PO SCH ×2 (08:56→10:25)
[2020-12-31] MEDS: Gabapentin 100 MG CAP PO SCH ×4 (08:56→20:25)
[2020-12-31] MEDS: Metoprolol Tartrate 50 MG TAB PO SCH ×3 (08:57→20:44)
[2020-12-31] MEDS: Lisinopril 10 MG TAB PO SCH ×3 (08:57→20:43)
[2020-12-31] MEDS: Senokot S 8.6-50 MG TAB PO SCH ×3 (08:58→20:26)
[2020-12-31] MEDS: Pantoprazole 40 MG GRANULES PACKET PO SCH ×2 (08:58→10:22)
[2020-12-31] MEDS: Polyethylene Glycol 3350 17 GM Packet PO SCH ×2 (08:58→10:21)
[2020-12-31] MEDS: metroNIDAZOLE 500 MG TAB PO SCH ×4 (08:58→20:25)
[2020-12-31] MEDS: Acetaminophen 325 MG TAB PO PRN (16:53)
[2020-12-31] MEDS ORDERED: Sterile Water 10 ML ONE (20:13)
[2020-12-31] MEDS: Simvastatin 10 MG TAB PO SCH (20:24)
[2020-12-31] MEDS: Amitriptyline HCl 25 MG TAB PO SCH (20:44)
[2020-12-31] MEDS: Nicotine 21 MG PATCH TD SCH (22:19)
[2021-01-01 04:27] LABS: Albumin 2.4 g/dL (3.5-5.0); Anion Gap 12 mmol/L (10-20); BUN (Urea Nitrogen) 46 mg/dL (8.4-25.7); BUN/Creatinine Ratio 54.12; Calc. Creatinine Clearance 160 mL/min (70-130); Calcium 8.6 mg/dL (7.8-10.44); Carbon Dioxide 34 mmol/L (22-29); Chloride 99 mmol/L (98-107); Glucose 174 mg/dL (70-105); Phosphorus 4.2 mg/dL (2.3-4.7); Potassium 3.8 mmol/L (3.5-5.1); Sodium 141 mmol/L (136-145)
[2021-01-01] MEDS: Levothyroxine Sodium 112 MCG TAB PO SCH (05:28)
[2021-01-01] MEDS: Furosemide 20 MG/2 ML VIAL SLOW IVP SCH ×3 (05:28→22:22)
[2021-01-01] MEDS: Doxycycline 100 MG CAP PO SCH (05:28)
[2021-01-01] MEDS: Pantoprazole 40 MG GRANULES PACKET PO SCH (09:36)
[2021-01-01] MEDS: Lisinopril 10 MG TAB PO SCH ×2 (09:37→20:49)
[2021-01-01] MEDS: Senokot S 8.6-50 MG TAB PO SCH ×2 (09:37→20:50)
[2021-01-01] MEDS: Gabapentin 100 MG CAP PO SCH ×3 (09:37→20:49)
[2021-01-01] MEDS: acetaZOLAMIDE Sodium 500 mg Vial IVP SCH ×2 (09:37→20:49)
[2021-01-01] MEDS: methylPREDNISolone Sod Succ 40 MG VIAL IVP SCH ×2 (09:37→20:49)
[2021-01-01] MEDS: Metoprolol Tartrate 50 MG TAB PO SCH ×2 (09:37→20:50)
[2021-01-01] MEDS: Polyethylene Glycol 3350 17 GM Packet PO SCH (09:37)
[2021-01-01] MEDS: Enoxaparin Sodium 100 MG/ML SYRINGE SC SCH ×2 (09:38→20:50)
[2021-01-01] MEDS: Spironolactone 100 MG TAB PO SCH (09:39)
[2021-01-01 10:12] VITALS: BMI 35.6
[2021-01-01] MEDS: NPH, Human Insulin Isophane 300 UNIT/3 ML VIAL SC SCH ×2 (11:32→22:23)
[2021-01-01] MEDS: metroNIDAZOLE 500 MG TAB PO SCH (11:33)
[2021-01-01] MEDS ORDERED: Metolazone 2.5 MG TAB PO SCH (12:30)
[2021-01-01] MEDS ORDERED: Spironolactone 25 MG TAB PO SCH (12:45)
[2021-01-01] MEDS: Simvastatin 10 MG TAB PO SCH (20:49)
[2021-01-01] MEDS: Amitriptyline HCl 25 MG TAB PO SCH (20:50)
[2021-01-01] MEDS: HumaLOG 300 UNITS/3 ML VIAL SC PRN (22:22)
[2021-01-01] MEDS: Nicotine 21 MG PATCH TD SCH (22:22)
[2021-01-02 03:52] LABS: Albumin 2.2 g/dL (3.5-5.0); Anion Gap 10 mmol/L (10-20); BUN (Urea Nitrogen) 49 mg/dL (8.4-25.7); BUN/Creatinine Ratio 53.85; Calc. Creatinine Clearance 145 mL/min (70-130); Calcium 7.9 mg/dL (7.8-10.44); Carbon Dioxide 36 mmol/L (22-29); Chloride 100 mmol/L (98-107); Glucose 216 mg/dL (70-105); Phosphorus 3.6 mg/dL (2.3-4.7); Potassium 3.7 mmol/L (3.5-5.1); Sodium 142 mmol/L (136-145)
[2021-01-02] MEDS: Furosemide 20 MG/2 ML VIAL SLOW IVP SCH ×3 (05:33→21:28)
[2021-01-02] MEDS: Levothyroxine Sodium 112 MCG TAB PO SCH (05:33)
[2021-01-02] MEDS: Metoprolol Tartrate 50 MG TAB PO SCH ×2 (08:43→20:14)
[2021-01-02] MEDS: Pantoprazole 40 MG GRANULES PACKET PO SCH (08:43)
[2021-01-02] MEDS: Spironolactone 100 MG TAB PO SCH (08:43)
[2021-01-02] MEDS: Lisinopril 10 MG TAB PO SCH ×2 (08:43→20:14)
[2021-01-02] MEDS: Gabapentin 100 MG CAP PO SCH ×3 (08:44→20:13)
[2021-01-02] MEDS: Enoxaparin Sodium 100 MG/ML SYRINGE SC SCH ×2 (08:44→20:28)
[2021-01-02] MEDS: methylPREDNISolone Sod Succ 40 MG VIAL IVP SCH ×2 (08:45→20:16)
[2021-01-02] MEDS: Polyethylene Glycol 3350 17 GM Packet PO SCH (08:45)
[2021-01-02] MEDS: acetaZOLAMIDE Sodium 500 mg Vial IVP SCH ×2 (08:45→20:29)
[2021-01-02] MEDS: NPH, Human Insulin Isophane 300 UNIT/3 ML VIAL SC SCH ×2 (08:45→20:17)
[2021-01-02] MEDS: Senokot S 8.6-50 MG TAB PO SCH ×2 (08:45→20:14)
[2021-01-02] MEDS ORDERED: Metolazone 2.5 MG TAB PO SCH (12:30)
[2021-01-02] MEDS: HumaLOG 300 UNITS/3 ML VIAL SC PRN (17:46)
[2021-01-02] MEDS: Amitriptyline HCl 25 MG TAB PO SCH (20:14)
[2021-01-02] MEDS: Nicotine 21 MG PATCH TD SCH (20:27)
[2021-01-02] MEDS: Simvastatin 10 MG TAB PO SCH (20:28)
[2021-01-03] MEDS: Furosemide 20 MG/2 ML VIAL SLOW IVP SCH (05:12)
[2021-01-03] MEDS: Levothyroxine Sodium 112 MCG TAB PO SCH (05:12)
[2021-01-03 07:00] LABS: Albumin 2.5 g/dL (3.5-5.0); Anion Gap 11 mmol/L (10-20); BUN (Urea Nitrogen) 42 mg/dL (8.4-25.7); Calc. Creatinine Clearance 159 mL/min (70-130); Calcium 8.5 mg/dL (7.8-10.44); Carbon Dioxide 36 mmol/L (22-29); Chloride 100 mmol/L (98-107); Glucose 96 mg/dL (70-105); Phosphorus 3.4 mg/dL (2.3-4.7); Potassium 3.5 mmol/L (3.5-5.1); Sodium 143 mmol/L (136-145)
[2021-01-03] MEDS: Torsemide 20 MG TAB PO SCH (08:49)
[2021-01-03] MEDS: Pantoprazole 40 MG GRANULES PACKET PO SCH (08:49)
[2021-01-03] MEDS: Senokot S 8.6-50 MG TAB PO SCH ×2 (08:49→20:19)
[2021-01-03] MEDS: Gabapentin 100 MG CAP PO SCH ×3 (08:50→20:15)
[2021-01-03] MEDS: Metoprolol Tartrate 50 MG TAB PO SCH ×2 (08:50→20:15)
[2021-01-03] MEDS: Lisinopril 10 MG TAB PO SCH ×2 (08:50→20:14)
[2021-01-03] MEDS: methylPREDNISolone Sod Succ 40 MG VIAL IVP SCH ×2 (08:51→20:16)
[2021-01-03] MEDS: Polyethylene Glycol 3350 17 GM Packet PO SCH (08:52)
[2021-01-03] MEDS: NPH, Human Insulin Isophane 300 UNIT/3 ML VIAL SC SCH ×2 (08:52→20:29)
[2021-01-03] MEDS: Enoxaparin Sodium 100 MG/ML SYRINGE SC SCH (12:21)
[2021-01-03] MEDS: acetaZOLAMIDE Sodium 500 mg Vial IVP SCH (12:21)
[2021-01-03] MEDS: Spironolactone 100 MG TAB PO SCH (12:29)
[2021-01-03] MEDS: HumaLOG 300 UNITS/3 ML VIAL SC PRN (17:13)
[2021-01-03] MEDS: AcetaZOLAMIDE 250 MG TAB PO SCH (20:14)
[2021-01-03] MEDS: Amitriptyline HCl 25 MG TAB PO SCH (20:14)
[2021-01-03] MEDS: Apixaban 5 MG TAB PO SCH (20:15)
[2021-01-03] MEDS: Nicotine 21 MG PATCH TD SCH (20:21)
[2021-01-03] MEDS: Simvastatin 10 MG TAB PO SCH (20:27)
[2021-01-03] MEDS: Acetaminophen 325 MG TAB PO PRN (20:38)
[2021-01-04 00:07] LABS: SARS-CoV-2 PCR by NAA Not Detected (NotDetected)
[2021-01-04] MEDS: Levothyroxine Sodium 112 MCG TAB PO SCH (05:27)
[2021-01-04 06:28] LABS: Hemoglobin 9.7 g/dL (14.0-18.0); Mean Corpuscular HGB CONC 30.9 g/dL (32.0-36.0); Mean Corpuscular Hemoglobin 28.6 pg (27.0-31.0); Mean Corpuscular Volume 92.5 fL (78.0-98.0); Mean Platelet Volume 8.5 fL (7.4-10.4); Platelet Count 324 thou/uL (130-400); RBC Distribution Width 15.1 % (11.5-14.5); Red Blood Cell (RBC) Count 3.38 mill/uL (4.70-6.10)
[2021-01-04 06:36] LABS: Albumin 2.3 g/dL (3.5-5.0); Anion Gap 10 mmol/L (10-20); BUN (Urea Nitrogen) 39 mg/dL (8.4-25.7); BUN/Creatinine Ratio 45.88; Calc. Creatinine Clearance 155 mL/min (70-130); Calcium 8.4 mg/dL (7.8-10.44); Carbon Dioxide 36 mmol/L (22-29); Chloride 100 mmol/L (98-107); Glucose 128 mg/dL (70-105); Phosphorus 3.6 mg/dL (2.3-4.7); Potassium 3.6 mmol/L (3.5-5.1); Sodium 142 mmol/L (136-145)
[2021-01-04] MEDS: Polyethylene Glycol 3350 17 GM Packet PO SCH (08:14)
[2021-01-04] MEDS: methylPREDNISolone Sod Succ 40 MG VIAL IVP SCH (08:14)
[2021-01-04] MEDS: Metoprolol Tartrate 50 MG TAB PO SCH ×2 (08:15→20:21)
[2021-01-04] MEDS: Pantoprazole 40 MG GRANULES PACKET PO SCH (08:15)
[2021-01-04] MEDS: Torsemide 20 MG TAB PO SCH (08:15)
[2021-01-04] MEDS: Apixaban 5 MG TAB PO SCH ×2 (08:15→20:21)
[2021-01-04] MEDS: Gabapentin 100 MG CAP PO SCH ×3 (08:15→20:22)
[2021-01-04] MEDS: Senokot S 8.6-50 MG TAB PO SCH ×2 (08:15→20:22)
[2021-01-04] MEDS: Lisinopril 10 MG TAB PO SCH (08:15)
[2021-01-04] MEDS: AcetaZOLAMIDE 250 MG TAB PO SCH ×2 (08:16→20:22)
[2021-01-04] MEDS: Spironolactone 100 MG TAB PO SCH (08:16)
[2021-01-04] MEDS: NPH, Human Insulin Isophane 300 UNIT/3 ML VIAL SC SCH ×2 (08:32→20:22)
[2021-01-04] MEDS ORDERED: Lisinopril 10 MG TAB PO SCH (09:00)
[2021-01-04] MEDS: Acetaminophen 325 MG TAB PO PRN (12:45)
[2021-01-04] MEDS: Amitriptyline HCl 25 MG TAB PO SCH (20:21)
[2021-01-04] MEDS: Simvastatin 10 MG TAB PO SCH (20:21)
[2021-01-04] MEDS: Lisinopril 20 MG TAB PO SCH (20:21)
[2021-01-04] MEDS: Nicotine 21 MG PATCH TD SCH (20:23)
[2021-01-04] MEDS: HumaLOG 300 UNITS/3 ML VIAL SC PRN (20:23)
[2021-01-05] MEDS: Dextrose 50% Abboject 50 ML SYRINGE SLOW IVP PRN (04:41)
[2021-01-05] MEDS: Levothyroxine Sodium 112 MCG TAB PO SCH (05:43)
[2021-01-05 07:01] VITALS: BP 92/50; TEMP 98.4
[2021-01-05] MEDS ORDERED: predniSONE 20 MG TAB PO SCH (08:00)
[2021-01-05 08:12] LABS: Albumin 2.2 g/dL (3.5-5.0)
[2021-01-05 08:13] LABS: Chloride 102 mmol/L (98-107); Potassium 3.4 mmol/L (3.5-5.1); Sodium 145 mmol/L (136-145)
[2021-01-05 08:14] LABS: Calcium 7.8 mg/dL (7.8-10.44); Glucose 153 mg/dL (70-105)
[2021-01-05 08:16] LABS: Anion Gap 10 mmol/L (10-20); Carbon Dioxide 36 mmol/L (22-29)
[2021-01-05 08:18] LABS: Calc. Creatinine Clearance 150 mL/min (70-130)
[2021-01-05 08:19] LABS: BUN (Urea Nitrogen) 38 mg/dL (8.4-25.7); BUN/Creatinine Ratio 43.18
[2021-01-05 08:24] LABS: Phosphorus 2.7 mg/dL (2.3-4.7)
[2021-01-05] MEDS: Torsemide 20 MG TAB PO SCH (08:33)
[2021-01-05] MEDS: Acetaminophen 325 MG TAB PO PRN (08:33)
[2021-01-05] MEDS: Gabapentin 100 MG CAP PO SCH ×3 (08:33→13:43)
[2021-01-05] MEDS: AcetaZOLAMIDE 250 MG TAB PO SCH (08:34)
[2021-01-05] MEDS: Apixaban 5 MG TAB PO SCH (08:34)
[2021-01-05] MEDS: Lisinopril 20 MG TAB PO SCH (08:34)
[2021-01-05] MEDS: Metoprolol Tartrate 50 MG TAB PO SCH (08:34)
[2021-01-05] MEDS: Pantoprazole 40 MG GRANULES PACKET PO SCH (08:35)
[2021-01-05] MEDS: Polyethylene Glycol 3350 17 GM Packet PO SCH (08:35)
[2021-01-05] MEDS: Senokot S 8.6-50 MG TAB PO SCH (08:35)
[2021-01-05] MEDS: NPH, Human Insulin Isophane 300 UNIT/3 ML VIAL SC SCH (09:19)
[2021-01-05] MEDS: Spironolactone 100 MG TAB PO SCH (09:59)
[2021-01-05] MEDS ORDERED: Potassium Chloride 20 MEQ TAB PO SCH (12:00)
== END 2021-01-05 14:17 | DRG 545 ==
LOC: ERS 14:32 → T4-B 18:25 → INTOOBSV 18:25 → OBSVTOIN 11-26 16:31 → 3SE 12-11 01:10 → CCU 12-19 01:33 → IMCU/EMU 12-21 17:40 → CCU 12-22 16:35 → IMCU/EMU 12-31 13:46 → T4-B 01-02 14:46
PROVIDERS: ADMIT Internal Medicine; ATTEND Internal Medicine
PROC: 0HBLXZX Excision of Left Lower Leg Skin, External Approach, Diagnostic (ICD-10-PCS; principal; 2020-11-26)
PROC: 0TB13ZX Excision of Left Kidney, Percutaneous Approach, Diagnostic (ICD-10-PCS; 2020-12-01)
PROC: 5A09357 Assistance with Respiratory Ventilation, Less than 24 Consecutive Hours, Continuous Positive Airway Pressure (ICD-10-PCS; 2020-12-02)
PROC: 5A09457 Assistance with Respiratory Ventilation, 24-96 Consecutive Hours, Continuous Positive Airway Pressure (ICD-10-PCS; 2020-12-19)
PROC: 0B9D8ZX Drainage of Right Middle Lung Lobe, Via Natural or Artificial Opening Endoscopic, Diagnostic (ICD-10-PCS; 2020-12-22)
PROC: 0BH18EZ Insertion of Endotracheal Airway into Trachea, Via Natural or Artificial Opening Endoscopic (ICD-10-PCS; 2020-12-22)
PROC: 5A1955Z Respiratory Ventilation, Greater than 96 Consecutive Hours (ICD-10-PCS; 2020-12-22)
DX: M32.0 Drug-induced systemic lupus erythematosus (principal); J81.0 Acute pulmonary edema; J96.01 Acute respiratory failure with hypoxia; J96.02 Acute respiratory failure with hypercapnia; L53.0 Toxic erythema; N17.9 Acute kidney failure, unspecified; E87.1 Hypo-osmolality and hyponatremia; E87.2 Acidosis; L03.116 Cellulitis of left lower limb; L03.119 Cellulitis of unspecified part of limb; L02.619 Cutaneous abscess of unspecified foot; J84.9 Interstitial pulmonary disease, unspecified; I50.30 Unspecified diastolic (congestive) heart failure; E11.52 Type 2 diabetes mellitus with diabetic peripheral angiopathy with gangrene; E87.0 Hyperosmolality and hypernatremia; E87.3 Alkalosis; L08.0 Pyoderma; L73.2 Hidradenitis suppurativa; J44.9 Chronic obstructive pulmonary disease, unspecified; E03.9 Hypothyroidism, unspecified; F17.210 Nicotine dependence, cigarettes, uncomplicated; D64.9 Anemia, unspecified; G47.33 Obstructive sleep apnea (adult) (pediatric); I25.10 Atherosclerotic heart disease of native coronary artery without angina pectoris; I95.9 Hypotension, unspecified; T39.4X5A Adverse effect of antirheumatics, not elsewhere classified, initial encounter; F39 Unspecified mood [affective] disorder; E78.2 Mixed hyperlipidemia; E11.69 Type 2 diabetes mellitus with other specified complication; I11.0 Hypertensive heart disease with heart failure; K59.00 Constipation, unspecified; E87.5 Hyperkalemia; T38.0X5A Adverse effect of glucocorticoids and synthetic analogues, initial encounter; E11.51 Type 2 diabetes mellitus with diabetic peripheral angiopathy without gangrene; N05.8 Unspecified nephritic syndrome with other morphologic changes; E11.649 Type 2 diabetes mellitus with hypoglycemia without coma; E11.21 Type 2 diabetes mellitus with diabetic nephropathy; I48.0 Paroxysmal atrial fibrillation; E11.65 Type 2 diabetes mellitus with hyperglycemia; N05.9 Unspecified nephritic syndrome with unspecified morphologic changes; Z20.822 Contact with and (suspected) exposure to COVID-19; E66.01 Morbid (severe) obesity due to excess calories; M32.14 Glomerular disease in systemic lupus erythematosus; Z79.899 Other long term (current) drug therapy; Z79.4 Long term (current) use of insulin; Z95.5 Presence of coronary angioplasty implant and graft; Z89.421 Acquired absence of other right toe(s); Z68.35 Body mass index [BMI] 35.0-35.9, adult
CPT/HCPCS: 31624; 36415; 36416; 36600; 50200; 71045; 71250; 76700; 77012; 80048; 80053; 80069; 80162; 80202; 81001; 82040; 82565; 82570; 82607; 82728; 82746; 82805; 83036; 83520; 83540; 83550; 83605; 83735; 83880; 84100; 84156; 84300; 84443; 84484; 84540; 85025; 85027; 85060; 85610; 85652; 85730; 86038; 86140; 86160; 86225; 86256; 87040; 87070; 87077; 87186; 87205; 87206; 87449; 87529; 87798; 88112; 88305; 88312; 88313; 88329; 88346; 88348; 88350; 89051; 93005; 93010; 93306; 93970; 94002; 94003; 94640; 94660; 96365; 96375; G0378; J0133; J0282; J0360; J0692; J0696; J1120; J1160; J1170; J1650; J1815; J1940; J1956; J2060; J2250; J2704; J2920; J2930; J3010; J3370; J3475; J3490; J7042; J7050; J7070; J7512; J7611; J7612; P9047; U0002; U0003; U0005